=== PATIENT | male | born 1950 | race Caucasian/White ===

== ENCOUNTER 2020-12-30 06:53 | Outpatient (REF) | payer MEDICARE, SELFPAY ==
[2020-12-30 11:10] LABS: MANUAL DIFF FLAG NO
[2020-12-30 11:27] LABS: Basophils Percent Auto 0.8 % (0-2); Eosinophils Absolute Auto 0.3 X10*3/uL (0.0-0.4); Eosinophils Percent Auto 5.2 % (0-4); Hematocrit 49.5 % (42-52); Hemoglobin 16.4 g/dl (14.0-18.0); Imm Gran Abs Auto 0.02 X10*3/uL (0.00-0.03); Imm Gran Pct Auto 0.4 % (0.0-0.4); Lymphocytes Absolute Auto 1.5 X10*3/uL (1.2-4.9); Lymphocytes Percent Auto 32.3 % (20-40); Mean Corpuscular HGB Conc 33.1 g/dl (31.0-36.0); Mean Corpuscular Hemoglobin 31.5 pg (27.0-33.0); Mean Corpuscular Volume 95.2 fL (80-98); Monocytes Absolute Auto 0.6 X10*3/uL (0.1-1.2); Monocytes Percent Auto 11.5 % (2-11); Neutrophils Absolute Auto 2.4 X10*3/uL (2.0-8.3); Neutrophils Percent Auto 49.8 % (45-73); Platelet Count 199 X10*3/uL (160-400); Red Cell Distribution Width 12.4 % (11.0-16.0); White Blood Count 4.8 X10*3/uL (4.8-10.8)
[2020-12-30 11:29] LABS: Glucose Urine UA NEG (NEG); Leukocyte Esterase Urine NEG (NEG); Nitrite Urine NEG (NEG); Urine Blood NEG (NEG); Urine Ketones NEG (NEG); Urine Protein NEG (NEG-TRACE)
[2020-12-30 11:40] LABS: Appearance Urine CLEAR; Color Urine YELLOW
[2020-12-30 12:08] LABS: Alanine Aminotransferase 20 U/L (0-40); Alkaline Phosphatase 63 U/L (39-117); Anion Gap 15 (12-20); Aspartate Amino Transferase 20 U/L (5-37); Bilirubin Total 1.2 mg/dL (0.0-1.0); Blood Urea Nitrogen 11 mg/dL (9-16); Calcium 9.3 mg/dL (8.4-10.2); Carbon Dioxide 26 mmol/L (22-29); Chloride 102 mmol/L (96-108); Cholesterol 207 mg/dL; Estimated Glomerular Filt Rate > 60; Glucose Fasting 102 mg/dL (60-99); HDL Cholesterol 70 mg/dL; LDL Cholesterol Calculated 119 mg/dl; Potassium 4.6 mmol/L (3.3-5.1); Sodium 138 mmol/L (135-145); Total Protein 6.7 g/dL (6.5-8.0); Triglycerides 90 mg/dL
[2020-12-30 12:45] LABS: Prostate Specific Antigen Scr 4.55 ng/mL (<0.05-4.0)
== END 2020-12-30 06:54 | disposition home or self-care (01) ==
LOC: HO.HMGCLDS 06:53
PROVIDERS: PCP Internal Medicine; Visit Provider Internal Medicine
DX: Z12.5 Encounter for screening for malignant neoplasm of prostate (principal); E78.00 Pure hypercholesterolemia, unspecified; R97.20 Elevated prostate specific antigen [PSA]; K21.9 Gastro-esophageal reflux disease without esophagitis
CPT/HCPCS: 36415; 80053; 80061; 81003; 84153; 85025

== ENCOUNTER 2021-04-27 10:38 | Outpatient (REF) | payer MEDICARE, SELFPAY ==
[2021-04-27 14:43] LABS: Anion Gap 14 (12-20); Blood Urea Nitrogen 13 mg/dL (9-16); Calcium 8.9 mg/dL (8.4-10.2); Carbon Dioxide 26 mmol/L (22-29); Chloride 106 mmol/L (96-108); Estimated Glomerular Filt Rate > 60; Glucose Random 87 mg/dL (60-115); Potassium 4.5 mmol/L (3.3-5.1); Sodium 141 mmol/L (135-145)
[2021-04-27 16:19] LABS: PSA,Total (Free>4and<10) 4.42 ng/mL (0.00-4.00)
[2021-04-28 12:02] LABS: Free Prostate Spec Ag 1.3 ng/mL; Percent Free Prostate Spec Ag 28 % (calc) (>25); Prostate Specific Ag Total 4.6 ng/mL (< OR = 4.0)
== END 2021-04-27 10:39 | disposition home or self-care (01) ==
LOC: HO.10HDL 10:38
PROVIDERS: Visit Provider Internal Medicine
DX: Z12.5 Encounter for screening for malignant neoplasm of prostate (principal); R97.20 Elevated prostate specific antigen [PSA]; I10 Essential (primary) hypertension
CPT/HCPCS: 36415; 80048; 84153; 84154; 86140

== ENCOUNTER 2021-06-21 12:19 | Outpatient (REF) | payer MEDICARE, SELFPAY ==
[2021-06-21 13:05] LABS: Influenza A PCR NEGATIVE (Negative); Influenza B PCR NEGATIVE (Negative); Resp Syncy Virus RNA Qual PCR NEGATIVE (Negative); SARS COV2 PCR INHOUSE NEGATIVE (Negative)
== END 2021-06-21 12:20 | disposition home or self-care (01) ==
LOC: HO.LNP 12:19
PROVIDERS: Visit Provider Internal Medicine
DX: R05.9 Cough, unspecified (principal); R09.89 Other specified symptoms and signs involving the circulatory and respiratory systems; Z20.822 Contact with and (suspected) exposure to COVID-19
CPT/HCPCS: 0241U

== ENCOUNTER 2022-02-09 08:36 | Outpatient (REF) | payer MEDICARE, SELFPAY ==
--- NOTE | ~2022-02-09 | XR_ITS ---
EXAMINATION: XR HAND, LEFT CLINICAL INFORMATION: Pain left hand. COMPARISON: Left fingers 03/09/2017. TECHNIQUE: PA, lateral, and oblique views of the left hand. FINDINGS: There is a soft tissue mass along the volar aspect of PIP joint second digit. If this is acute it could be a hematoma. Differential diagnoses includes a synovial cyst. There are no bony erosive changes seen. XR/XR hand LT min 3V IMPRESSION: Soft tissue mass along the volar aspect of PIP joint second digit. Question hematoma or synovial cyst. Apparently there is a foreign body or linear density in the same region on the previous exam 04/06/2017. This may represent a foreign body granuloma as well. Further evaluation with MRI can be performed.
== END 2022-02-09 08:37 | disposition home or self-care (01) ==
LOC: HO.HOSX 08:36
PROVIDERS: Visit Provider Physician Assistant
DX: M79.642 Pain in left hand (principal); L72.0 Epidermal cyst
CPT/HCPCS: 73130; 99202

== ENCOUNTER 2022-02-24 12:44 | Day surgery (SDC) | payer MEDICARE, SELFPAY ==
[2022-02-24 13:35] VITALS: BP 182/82; PULSE 68; RESP 18; TEMP 36.9; O2SAT 98; BMI 28.1
--- NOTE | 2022-02-24 15:08 | P.OP_ITS ---
Operative Note Operative Note Date of Service: 02/24/22 Narrative: Operative Note Preop diagnosis: 1. left index finger volar soft tissue mass Postop diagnosis: same Procedure: 1. left index finger soft tissue mass excisional biopsy Surgeon: Samaria Singh MD Anesthesia: digital block using 1% lidocaine with epinephrine Findings: Approximately 1.5 cm diameter white spherical shaped mass filled with white gritty material. Most consistent with an epidermal inclusion cyst. Sent for histopathology EBL: Less than 5 mL Tourniquet time: None Specimens: left index finger mass for histopathology Complications: None Disposition: Brought to recovery room in stable condition Plan: Follow-up for 7-10 days for wound check and suture removal and to check pathology Indications: The patient is 72 years old, with a left index finger volar soft tissue mass . The risks and benefits of operative treatment including but not limited to risk of damage to blood vessels, nerves, tendons, infection, persistent pain, persistent symptoms, recurrence or possible need for additional surgery were discussed with the patient and the patient wishes to proceed with surgery. Procedure: Once consent was obtained a digital block was performed in the p reop area using a combination of 1% lidocaine with epinephrine. The patient was then brought back to the operating suite and placed on the operative table in supine position. A tourniquet was applied to the proximal aspect of the left upper extremity and the limb was prepped and draped in a standard surgical fashion. Once assured that we had a good block, I made a Saida incision over the volar aspect of the patient's left index finger. He had a 1.5 cm oval-shaped soft tissue mass over the volar aspect of the middle phalanx. The incision was made through the skin to the subcutaneous tissues using a 15. Blade. I then carefully dissected down to the level of the soft tissue mass. I carefully mobilized the surrounding soft tissues from about the soft tissue mass caking care to protect the neurovascular bundles. the mass was approximately 1.5 cm in diameter, white and an oval / spherical shape. It was fairly easily removed from the soft tissue covering/rind surrounding it. The mass was then removed and placed on the back table to be sent for histopathology. No further masses were appreciated. I excise the more superficial portion of the rind or soft tissue covering, and left the deeper tissue as it was well adherent to the surrounding tissues. Once satisfied with our excisional biopsy, the wound was copiously irrigated with normal saline and hemostasis was obtained with a brief period of local pressure. The skin edges were reapproximated with some 5.0 nylon suture material and a sterile dressing was applied. The patient appears to have tolerated the procedure well and with no complications. All digits were well vascularized at the conclusion of the case.
--- NOTE | 2022-02-24 15:08 | MHC.SHP ---
Pre-Procedural Eval Section A Date of Service: 02/24/22 The patient is an INPATIENT: No Changes since office visit: No Cold of Flu in the past 2 weeks, No New Medical Problems, No Changes in Medication and No Patient answered all questions The History & Physical has been completed within 30 days and I have reviewed it.: Yes Section B Chief Complaint: Localized swelling, mass and lump, left upper limb Allergies: Allergies Allergy/AdvReac Type Severity Reaction Status Date / Time No Known Allergies Allergy Unverified 02/09/22 14:10 Plan I have reviewed the history and physical and performed a pertinent physical examination on my patient. No changes have occurred unless specified.
[2022-02-24 16:40] VITALS: BP 172/79; PULSE 77; RESP 18; TEMP 36.8; O2SAT 97
== END 2022-02-24 16:56 | disposition home or self-care (01) ==
PROVIDERS: PCP Internal Medicine; Visit Provider Orthopaedic Surgery
PROC: (CPT 11422; principal; 2022-02-24 14:40)
DX: L72.0 Epidermal cyst (principal); I10 Essential (primary) hypertension; Z79.899 Other long term (current) drug therapy; Z87.891 Personal history of nicotine dependence
CPT/HCPCS: 11422; 88304; J0171

== ENCOUNTER → 2022-03-09 13:05 | Outpatient (BNVA) | payer MEDICARE, SELFPAY | PROVIDERS: PCP Internal Medicine; Visit Provider Orthopaedic Surgery | DX: Z09 Encounter for follow-up examination after completed treatment for conditions other than malignant neoplasm (principal) | CPT/HCPCS: 99212 ==

== ENCOUNTER 2022-04-05 07:10 | Outpatient (REF) | payer MEDICARE, SELFPAY ==
[2022-04-05 11:16] LABS: MANUAL DIFF FLAG NO
[2022-04-05 11:41] LABS: Basophils Absolute Auto 0.1 X10*3/uL (0.0-0.2); Basophils Percent Auto 1.5 % (0-2); Eosinophils Absolute Auto 0.3 X10*3/uL (0.0-0.4); Eosinophils Percent Auto 5.4 % (0-4); Hematocrit 47.1 % (42.0-52.0); Hemoglobin 15.9 g/dl (14.0-18.0); Imm Gran Abs Auto 0.01 X10*3/uL (0.00-0.03); Imm Gran Pct Auto 0.2 % (0.0-0.4); Lymphocytes Absolute Auto 1.5 X10*3/uL (1.2-4.9); Lymphocytes Percent Auto 30.5 % (20-40); Mean Corpuscular HGB Conc 33.8 g/dl (31.0-36.0); Mean Corpuscular Hemoglobin 32.2 pg (27.0-33.0); Mean Corpuscular Volume 95.3 fL (80.0-98.0); Mean Platelet Volume 9.9 fL (9.4-12.4); Monocytes Absolute Auto 0.6 X10*3/uL (0.1-1.2); Monocytes Percent Auto 11.5 % (2-11); Neutrophils Absolute Auto 2.4 x10*3/uL (2.0-8.3); Neutrophils Percent Auto 50.9 % (45-73); Platelet Count 188 X10*3/uL (160-400); Red Blood Count 4.94 X10*6/uL (4.60-5.80); Red Cell Distribution Width 12.4 % (11.0-16.0); White Blood Count 4.8 X10*3/uL (4.8-10.8)
[2022-04-05 12:09] LABS: Alanine Aminotransferase 23 U/L (0-40); Albumin Level 3.9 g/dL (3.5-5.0); Alkaline Phosphatase 56 U/L (39-117); Anion Gap 14 (12-20); Aspartate Amino Transferase 22 U/L (5-37); Bilirubin Total 1.2 mg/dL (0.0-1.0); Blood Urea Nitrogen 14 mg/dL (9-16); Calcium 8.7 mg/dL (8.4-10.2); Carbon Dioxide 24 mmol/L (22-29); Chloride 105 mmol/L (96-108); Cholesterol 190 mg/dL; Estimated Glomerular Filt Rate > 60; Glucose Fasting 110 mg/dL (60-99); HDL Cholesterol 63 mg/dL; LDL Cholesterol Calculated 113 mg/dl; Potassium 4.3 mmol/L (3.3-5.1); Sodium 139 mmol/L (135-145); Total Protein 6.5 g/dL (6.5-8.0); Triglycerides 71 mg/dL
[2022-04-05 12:19] LABS: Prostate Specific Antigen 4.63 ng/mL (<0.05-4.0)
== END 2022-04-05 07:11 | disposition home or self-care (01) ==
LOC: HO.HMGCLDS 07:10
PROVIDERS: PCP Internal Medicine; Visit Provider Internal Medicine
DX: Z12.5 Encounter for screening for malignant neoplasm of prostate (principal); I10 Essential (primary) hypertension; N40.0 Benign prostatic hyperplasia without lower urinary tract symptoms; E78.00 Pure hypercholesterolemia, unspecified
CPT/HCPCS: 36415; 80053; 80061; 84153; 85025

== ENCOUNTER 2022-09-16 09:36 | Outpatient (REF) | payer MEDICARE, SELFPAY ==
--- NOTE | ~2022-09-16 | XR_ITS ---
EXAMINATION: XR ANKLE, LEFT CLINICAL INFORMATION: Left ankle pain COMPARISON: Left ankle radiograph from 05/02/2017 TECHNIQUE: AP, lateral, and mortise views of the left ankle. FINDINGS: No acute visible fracture or dislocation. Ankle mortise is symmetric. Moderate to severe degenerative arthropathy. Large osteophyte along the posterior talocalcaneal joint space. Plantar calcaneal heel spur. Spurring the dorsal hindfoot and midfoot. Joint spaces and alignment are otherwise maintained. Soft tissues are unremarkable. Atherosclerotic calcifications are noted. XR/XR ankle LT min 3V IMPRESSION: 1. No acute visible fracture or dislocation. 2. Moderate to severe degenerative arthropathy with a large osteophyte along the posterior talocalcaneal joint space.
== END 2022-09-16 09:37 | disposition home or self-care (01) ==
LOC: HO.XRAY 09:36
PROVIDERS: PCP Internal Medicine; Visit Provider Internal Medicine
DX: M25.572 Pain in left ankle and joints of left foot (principal)
CPT/HCPCS: 73610

== ENCOUNTER 2022-12-29 14:44 | Inpatient (IN) | payer MEDICARE, SELFPAY ==
--- NOTE | ~2022-12-29 | CT_ITS ---
EXAMINATION: CT HEAD WITHOUT CONTRAST CLINICAL INFORMATION: Fall, head strike, on anticoagulants. COMPARISON: None TECHNIQUE: Contiguous axial imaging was performed from the skull base to vertex without intravenous administration of contrast. This CT examination was performed using dose optimization techniques as appropriate, variously including the following: *Automated exposure control *Adjustment of mA and/or kV according to patient size (this includes techniques or standardized protocols for targeted exams where dose is matched to indication/reason for exam; i.e. extremities or head) *Use of iterative reconstruction technique DLP: 803 mGy-cm FINDINGS: There is no evidence of acute intracranial hemorrhage or edematous territorial infarction. A few foci of hypoattenuation in the periventricular and deep white matter are consistent with mild microangiopathy. Mart-white matter differentiation is preserved. Proportional prominence of the ventricles and sulcal spaces. No evidence for obstructive hydrocephalus. No abnormal mass effect or midline shift. No extra-axial fluid collections. No acute soft tissue or osseous abnormalities. Small mucous retention cysts in the maxillary sinuses. No air-fluid levels. The mastoids and middle ear cavities are clear. CT/CT head/brain wo IV con IMPRESSION: No evidence of acute intracranial hemorrhage or edematous territorial infarction.
--- NOTE | ~2022-12-29 | CT_ITS ---
EXAMINATION: CT ANGIOGRAM NECK AND HEAD CLINICAL INFORMATION: Question CVA versus TIA COMPARISON: Noncontrast head CT from the same day TECHNIQUE: Test bolus sequences followed by intravenous administration 70 mL of Omnipaque 350. Helical imaging was performed in the axial plane from the thoracic inlet to the skull vertex. Delayed postcontrast imaging of the head was also performed. The data was processed at the instrument technologist's workstation for generation of MIP sequences. Angled MIPs and volume rendered reformatted images were also generated at an offline 3D workstation. Stenoses are assessed in accordance with NASCET criteria unless otherwise indicated. DOSE LOWERING TECHNIQUES: This CT examination was performed using dose optimization techniques as appropriate, variously including the following: - Automated exposure control - Adjustment of mA and/or kV according to patient size (this includes techniques or standardized protocols for targeted exams were dose is matched to indication/reason for exam; i.e. extremities or head) - Use of iterative reconstruction technique DLP: 1638 mGy-cm FINDINGS: Neck CTA: There is a classic 3 vessel branching pattern of the aortic arch. Normal appearance of the visualized aortic arch and proximal branches. No evidence of stenosis at the branch origins. Both vertebral arteries are patent throughout their extracranial cervical course, and the right vertebral artery is dominant. There is calcification of the bilateral common carotid artery bifurcations with less than 50% luminal narrowing bilaterally. Normal appearance of the remainder of the common and internal carotid arteries without focal stenosis. Brain CTA: Normal appearance of the intradural vertebral arteries, and the right vertebral artery is dominant. Normal appearance of the basilar and superior cerebellar arteries. Normally opacified posterior cerebral arteries bilaterally. Normal appearance of the intradural internal carotid arteries without focal stenosis. There are calcifications along the bilateral cavernous internal carotid arteries. Normal appearance of the anterior cerebral and middle cerebral arteries without focal occlusion or stenosis. Normal anterior communicating artery. Normal arborization of the middle cerebral arteries. CT Head: Limited assessment for intracranial hemorrhage in the presence of intravenous contrast. No intracranial mass, extra-axial collection, or midline shift. The glynn-white matter differentiation is preserved. Mild volume loss is noted. No pathologic intra-axial enhancement or regional oligemia. No hydrocephalus. Small mucous retention cysts in the maxillary sinus. Mastoid air cells are well-aerated. CT Neck: The thyroid gland and remaining cervical soft tissues are normal in appearance. There is disc space narrowing and endplate osteophyte formation throughout much of the cervical spine. Upper Chest: No abnormalities in the visualized lung apices or upper mediastinum. CT/CT angio head neck IMPRESSION: 1. No large vessel occlusion or significant stenosis in the intracranial circulation. 2. Calcifications of the bilateral common carotid artery bifurcations with less than 50% luminal narrowing bilaterally.
--- NOTE | ~2022-12-29 | MR_ITS ---
EXAMINATION: MR BRAIN WITHOUT CONTRAST CLINICAL INFORMATION: Right-sided weakness. COMPARISON: CT dated 12/29/2022. TECHNIQUE: Multiplanar, multisequence imaging of the brain was performed without contrast. FINDINGS: There is a small acute infarct in the left thalamus measuring approximately 7 mm in size. Mild generalized parenchymal volume loss evident with mild ex vacuo dilatation of the ventricles. No mass effect or midline shift is seen. Very mild signal changes noted in the periventricular white matter and brainstem. No extra-axial fluid collections are seen. The cerebellum is normal. The gradient refocused acquisition is normal. The craniovertebral junction, marrow signal, and midline structures are normal. The major intracranial flow voids at the level of the [place] of [place] are preserved. The dural venous sinus flow voids are maintained. The mastoid air cells are well aerated. There is a small retention cyst in the left maxillary antrum. MR/MR head/brain wo con IMPRESSION: Small acute left thalamic infarct.
[2022-12-29 14:53] VITALS: BP 178/87; PULSE 84; RESP 20; TEMP 36.8; O2SAT 98; BMI 28.1
--- NOTE | 2022-12-29 14:53 | ED.GENADULT ---
HPI - General Adult General Chief complaint: Neuro Symptoms/Deficit Stated complaint: quest stroke r arm leg numbness sent by dr Blackmon Time Seen by Provider: 12/29/22 19:21 Source: patient, family (), RN notes reviewed and old records reviewed Mode of arrival: ambulatory Limitations: no limitations History of Present Illness HPI narrative: 72-year-old male past medical history significant for hypertension, hyperlipidemia, GERD presents for evaluation of right-sided weakness. Patient reports that last night around 5:30 p.m. 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 ? Currently he reports some mild soreness in his right hip but denies any weakness in reports that his symptoms have resolved He denies having any difficulty speaking throughout this event. He also admits that last night ?I just did not feel well. The patient is reports that he slept much longer than usual last night into this morning The patient followed up with his PCP this morning and was directed to come to the hospital for further evaluation Patient denies any history of stroke or TIA. He is not anticoagulated Related Data Home Medications Medication Instructions Recorded Confirmed amlodipine 5 mg tablet 5 mg PO DAILY 02/09/22 omeprazole 20 mg capsule,delayed 20 mg PO DAILY 02/09/22 release pravastatin 20 mg tablet 20 mg PO DAILY 02/09/22 Previous Rx's Medication Instructions Recorded hydrocodone 5 mg-acetaminophen 325 1 tab PO Q4-6H PRN pain #5 tabs 02/24/22 mg tablet Allergies Allergy/AdvReac Type Severity Reaction Status Date / Time No Known Allergies Allergy Unverified 02/09/22 14:10 Review of Systems Constitutional: Constitutional: Reports as per HPI, Denies chills, Denies fatigue, Denies fever(s), Denies headache(s) and Reports weakness ENT: Denies headache(s) Cardiovascular: Cardiovascular: Denies chest pain and Denies dyspnea Respiratory: Respiratory: Denies cough and Denies dyspnea Gastrointestinal: Gastrointestinal: Denies abdominal pain, Denies constipation and Denies vomiting Genitourinary: Genitourinary: Denies difficulty urinating and Denies dysuria Musculoskeletal: Musculoskeletal: Reports numbness Neurologic: Denies headache(s), Reports numbness and Reports weakness Endocrine: Endocrine: Denies fatigue PMFSH Past Medical History Medical History (Updated 12/29/22 @ 19:51 by Franko Dutton) High blood pressure Social History Social History (Updated 02/09/22 @ 14:12 by CAROLINE Carr) Patient Tobacco Use Status: Former Tobacco user Advance Directives: No Advance Directives Information Provided: Yes Current occupational status: 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 Physical Exam ED Vital Signs: Vital Signs - 24 hr 12/29/22 14:53 Temperature 98.3 F Pulse Rate 84 Respiratory Rate 20 Blood Pressure 178/87 H Pulse Oximetry 98 Oxygen Delivery Method Room Air BMI result Body Mass Index 28.1 Const General: healthy appearing, comfortable, no acute distress, alert and awake Nutritional Appearance: well nourished Orientation/consciousness: patient oriented x3 HENMT Head: Yes normocephalic and Yes atraumatic Eyes Eyelids: Yes eyelids normal Conjunctivae: conjunctivae normal Sclerae: sclerae normal Corneas: corneas normal Pupils: Equal, round and reactive pupils present EOM: EOMs intact bilaterally Neck Neck: Yes full ROM Resp Effort & Inspection: normal respiratory effort, able to speak in complete sentences and not labored Skin General skin exam: no rashes or lesions noted and elasticity normal Neuro General: patient oriented x3 Cranial nerves: Yes CN's II-XII intact bilaterally, Yes Equal, round and reactive pupils present and Yes Bilaterally intact EOM present Cognition (Neuro): normal cognition Motor exam (neuro): 5/5 motor strength present throughout Extrem Other: Moving all extremities well without any obvious deformities NIH Stroke Scale Internal: Initial- Upon Arrival Time: 14:56 Level of Consciousness: Alert Level of Consciousness Questions: Answers both questions correctly Level of Consciousness Commands: Performs both tasks correctly Best Gaze: Normal Visual: No visual loss Facial Palsy: Normal Motor Arm (Right): Drift (mild) Motor Arm (Left): No drift Motor Leg (Right): No drift Motor Leg (Left): No drift Limb Ataxia: Absent Sensory: Normal Best Language: No aphasia Dysarthia: Normal Extinction and Inattention: No abnormality Score: 1 Course Course Course Narrative: This is a rapid medical exam: Additional HPI, ROS, PE not included below will be deferred to primary provider. Patient is a 72-year-old male with history of HTN presenting with complaint of right arm and leg weakness last night around 6pm. States he was attempting to picking supervisor a cup with his right hand and he dropped it. Reports his right arm feels less weak this morning but that his right leg feels like I'm shuffling this morning. Saw Dr. Marquez this morning who sent him to the ED. NIHSS of 1. Plan: labs, CT head Medical Decision Making Medical Decision Making [facility] Narrative: 72-year-old male with history of hypertension, hyperlipidemia not currently on any and elevated medications presents for evaluation of right-sided weakness that lasted for about 5:30 p.m. to 7:00 p.m. last night. The patient is currently back to his baseline, has no numbness, weakness. There was never any dysarthria or facial asymmetry per him and his . Currently the patient has an NIH stroke score of 0. He had labs that were resulted and unremarkable for acute pathology. This CT scan the brain showed chronic changes but no evidence of acute CVA. Given the patient's right-sided weakness affecting the upper and lower extremity I am concerned the patient had a TIA and requires MRI. Unfortunately MRI is no longer here today. The patient's symptoms started over 24 hours ago, so there is no intervention available. Of discussed with the hospitalist for admission of further TIA workup patient was given a dose of aspirin Differential Diagnosis Differential Diagnoses: The differential diagnosis associated with the presentation includes TA CVA Large vessel occlusion Intracranial hemorrhage Brain mass Lab Data [facility] Lab Attestation statement: I reviewed the patient's lab results. No leukocytosis or significant anemia. No significant electrolyte abnormalities 12/29/22 15:17 12/29/22 15:17 Labs: Lab Results 12/29/22 12/29/22 12/29/22 Range/Units 15:17 15:17 15:19 WBC 6.8 (4.8-10.8) X10*3/uL RBC 5.46 (4.60-5.80) X10*6/uL Hgb 17.3 (14.0-18.0) g/dl Hct 51.2 (42.0-52.0) % MCV 93.8 (80.0-98.0) fL MCH 31.7 (27.0-33.0) pg MCHC 33.8 (31.0-36.0) g/dl RDW 12.8 (11.0-16.0) % Plt Count 173 (160-400) X10*3/uL MPV 9.2 L (9.4-12.4) fL Immature Gran % (Auto) 0.3 (0.0-0.4) % Neut % (Auto) 66.6 (45-73) % Lymph % (Auto) 22.4 (20-40) % [place] % (Auto) 7.9 (2-11) % Eos % (Auto) 2.2 (0-4) % Baso % (Auto) 0.6 (0-2) % Lymph # (Auto) 1.5 (1.2-4.9) X10*3/uL [place] # (Auto) 0.5 (0.1-1.2) X10*3/uL Eos # (Auto) 0.2 (0.0-0.4) X10*3/uL Baso # (Auto) 0.0 (0.0-0.2) X10*3/uL Abs Immat Gran (auto) 0.02 (0.00-0.03) X10*3/uL Absolute Neuts (auto) 4.5 (2.0-8.3) x10*3/uL Absolute Nucleated RBC 0.000 (0.0-0.012) X10*3/uL Nucleated RBC % (auto) 0.0 (0.0-0.2) /100WBC PT (10.0-13.1) SEC INR (0.9-1.1) Sodium 138 (135-145) mmol/L Potassium 3.9 (3.3-5.1) mmol/L Chloride 106 (96-108) mmol/L Carbon Dioxide 20 L (22-29) mmol/L Anion Gap 16 (12-20) BUN 12 (9-16) mg/dL Creatinine 0.87 (0.5-1.4) mg/dL Estim Creat Clear Calc 83.3 Estimated GFR > 60 Random Glucose 98 (60-115) mg/dL Calcium 9.8 D (8.4-10.2) mg/dL Total Bilirubin 1.0 (0.0-1.0) mg/dL AST 19 (5-37) U/L ALT 22 (0-40) U/L Alkaline Phosphatase 57 (39-117) U/L Troponin I High Sens < 2.7 (<3.5-35.0) ng/L Total Protein 7.4 (6.5-8.0) g/dL Albumin 4.1 (3.5-5.0) g/dL 12/29/22 Range/Units 15:19 WBC (4.8-10.8) X10*3/uL RBC (4.60-5.80) X10*6/uL Hgb (14.0-18.0) g/dl Hct (42.0-52.0) % MCV (80.0-98.0) fL MCH (27.0-33.0) pg MCHC (31.0-36.0) g/dl RDW (11.0-16.0) % Plt Count (160-400) X10*3/uL MPV (9.4-12.4) fL Immature Gran % (Auto) (0.0-0.4) % Neut % (Auto) (45-73) % Lymph % (Auto) (20-40) % [place] % (Auto) (2-11) % Eos % (Auto) (0-4) % Baso % (Auto) (0-2) % Lymph # (Auto) (1.2-4.9) X10*3/uL [place] # (Auto) (0.1-1.2) X10*3/uL Eos # (Auto) (0.0-0.4) X10*3/uL Baso # (Auto) (0.0-0.2) X10*3/uL Abs Immat Gran (auto) (0.00-0.03) X10*3/uL Absolute Neuts (auto) (2.0-8.3) x10*3/uL Absolute Nucleated RBC (0.0-0.012) X10*3/uL Nucleated RBC % (auto) (0.0-0.2) /100WBC PT 10.8 (10.0-13.1) SEC INR 0.9 (0.9-1.1) Sodium (135-145) mmol/L Potassium (3.3-5.1) mmol/L Chloride (96-108) mmol/L Carbon Dioxide (22-29) mmol/L Anion Gap (12-20) BUN (9-16) mg/dL Creatinine (0.5-1.4) mg/dL Estim Creat Clear Calc Estimated GFR Random Glucose (60-115) mg/dL Calcium (8.4-10.2) mg/dL Total Bilirubin (0.0-1.0) mg/dL AST (5-37) U/L ALT (0-40) U/L Alkaline Phosphatase (39-117) U/L Troponin I High Sens (<3.5-35.0) ng/L Total Protein (6.5-8.0) g/dL Albumin (3.5-5.0) g/dL Discharge Plan Discharge Clinical Impression: Acute right-sided weakness Patient Disposition: Admitted As Inpatient
[2022-12-29 15:36] LABS: MANUAL DIFF FLAG NO
[2022-12-29 15:39] LABS: Basophils Percent Auto 0.6 % (0-2); Eosinophils Absolute Auto 0.2 X10*3/uL (0.0-0.4); Eosinophils Percent Auto 2.2 % (0-4); Hematocrit 51.2 % (42.0-52.0); Hemoglobin 17.3 g/dl (14.0-18.0); Imm Gran Abs Auto 0.02 X10*3/uL (0.00-0.03); Imm Gran Pct Auto 0.3 % (0.0-0.4); Lymphocytes Absolute Auto 1.5 X10*3/uL (1.2-4.9); Lymphocytes Percent Auto 22.4 % (20-40); Mean Corpuscular HGB Conc 33.8 g/dl (31.0-36.0); Mean Corpuscular Hemoglobin 31.7 pg (27.0-33.0); Mean Corpuscular Volume 93.8 fL (80.0-98.0); Mean Platelet Volume 9.2 fL (9.4-12.4); Monocytes Absolute Auto 0.5 X10*3/uL (0.1-1.2); Monocytes Percent Auto 7.9 % (2-11); Neutrophils Absolute Auto 4.5 x10*3/uL (2.0-8.3); Neutrophils Percent Auto 66.6 % (45-73); Platelet Count 173 X10*3/uL (160-400); Red Blood Count 5.46 X10*6/uL (4.60-5.80); Red Cell Distribution Width 12.8 % (11.0-16.0); White Blood Count 6.8 X10*3/uL (4.8-10.8)
[2022-12-29 15:44] LABS: INTERNATIONAL NORM RATIO 0.9 (0.9-1.1); Prothrombin Time 10.8 SEC (10.0-13.1)
[2022-12-29 16:12] LABS: Troponin-I High Sensitivity < 2.7 ng/L (<3.5-35.0)
[2022-12-29 16:26] LABS: Alanine Aminotransferase 22 U/L (0-40); Albumin Level 4.1 g/dL (3.5-5.0); Alkaline Phosphatase 57 U/L (39-117); Anion Gap 16 (12-20); Aspartate Amino Transferase 19 U/L (5-37); Blood Urea Nitrogen 12 mg/dL (9-16); Calcium 9.8 mg/dL (8.4-10.2); Carbon Dioxide 20 mmol/L (22-29); Chloride 106 mmol/L (96-108); Creatinine Clr Calc Pharmacy 83.3; Estimated Glomerular Filt Rate > 60; Glucose Random 98 mg/dL (60-115); Potassium 3.9 mmol/L (3.3-5.1); Sodium 138 mmol/L (135-145); Total Protein 7.4 g/dL (6.5-8.0)
[2022-12-29] MEDS: Aspirin 81 MG TAB.CHEW 324 MG PO (20:00)
--- NOTE | 2022-12-29 20:05 | PC.NURSE ---
Pt presents to ER after an episode of one-sided weakness last night. Pt stated symptoms resolved with the exception of a soreness in his shoulder. Pt is A&Ox4, GCS 15. Denies chest pain, shortness of breath, nyumbness and tingling in any extremity. Pt will be admitted to get an MRI tomorrow.
--- NOTE | 2022-12-29 20:07 | PM.IMHP ---
History of Present Illness Date of Service: 12/29/22 Attending physician on admission: Samm Montemayor Chief Complaint: Right arm and leg numbness Pt is a 72-year-old male with a PMH significant for?HTN and HLD who presents to the ED for evaluation of right-sided weakness. Pt states he was eating dinner last night when he attempted to grab a glass and found he could not hold it. He attempted this twice and twice the glass fell. Pt then got up and tried to ambulate and noticed that his right leg was dragging behind him. Neither pt nor his noted any facial droop, slurred speech, or difficulty with word finding. Denies headache, vision changes. No numbness or tingling. He lay on the couch and took a 2-3 hour nap. When he awoke he continued to have residual upper extremity weakness but was able to ambulate without difficulty. He then went to bed and awoke the next morning with his symptoms resolved. Pt visited his PCP today who sent him to the ED for further evaluation. Patient currently nearly back to baseline with only some lingering mild right arm pain. Denies any residual right-sided weakness. No chest pain/pressure palpitations. Denies shortness of breath. No fever, chills, nausea, vomiting, abdominal pain. Of note patient stop taking his pravastatin 3 months ago due to myalgias and joint pain. Patient states he used to be in so much pain that it was difficult to just bend over. Since stopping his statin he has greatly improved his mobility. In the ED pt was afebrile but hypertensive up to 178/87. Labs were grossly unremarkable. Electrolytes WNL. Hepatic function WNL. Renal function WNL. Troponin negative. CT?of head and brain showed no evidence of acute intracranial hemorrhage or edematous and territorial infarction. Pt was treated with aspirin 324 mg p.o. Pt will be admitted to the hospital for treatment and further evaluation of possible CVA versus TIA. Review of Systems Review of Systems: Right-sided upper and lower extremity weakness, now resolved Lingering mild right arm pain Patient denies numbness or tingling No headache, vision changes Denies facial droop, dysarthria No chest pain/pressure, palpitations Denies fever, chills, nausea, vomiting, diarrhea, abdominal pain No shortness of breath Yes all other systems are reviewed and are negative PMFSH Medical History High blood pressure Social History Alcohol intake: current Alcohol intake frequency: 0-2 drinks per day Alcohol type: beer Patient Tobacco Use Status: Former Tobacco user Smoked in Last 30 Days: No Use of substances other than those prescribed or required for medical reasons: No Advance Directives: No Advance Directives Information Provided: Yes 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 occupational status: 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 Mental Status: Oriented to person, place and time. Eyes: Pupils are equal, round, and reactive to light. Ear, Nose, and Throat: Oropharynx clear, mucous membranes moist. Ears and nose without deformities. Trachea midline. Respiratory: Clear to auscultation bilaterally. No wheezing, rales, or rhonchi. Cardiovascular: S1, S2 regular. No murmurs, rubs, or gallops. Gastrointestinal: Abdomen soft, non-tender, non-distended. Normal bowel sounds. Neurologic: Cranial nerves II-XII are grossly intact bilaterally. No focal neurological deficits. Moves all extremities spontaneously. Strength 5/5 of upper and lower extremities bilaterally. Sensation to light touch intact of face, upper and lower extremities bilaterally. Skin: No rashes or lesions noted. Musculoskeletal: No cyanosis or clubbing. Extremities: No edema. Psychiatric: Normal mood and affect. Results Labs 12/29/22 15:17 12/29/22 15:17 Labs: Laboratory Results - last 24 hr 0712/29/22 12/29/22 15:17 15:17 15:19 MCV 93.8 MCH 31.7 MCHC 33.8 RDW 12.8 Plt Count 173 MPV 9.2 L Immature Gran % (Auto) 0.3 Neut % (Auto) 66.6 Lymph % (Auto) 22.4 [place] % (Auto) 7.9 Eos % (Auto) 2.2 Baso % (Auto) 0.6 Lymph # (Auto) 1.5 [place] # (Auto) 0.5 Eos # (Auto) 0.2 Baso # (Auto) 0.0 Abs Immat Gran (auto) 0.02 Absolute Neuts (auto) 4.5 Absolute Nucleated RBC 0.000 Nucleated RBC % (auto) 0.0 PT INR Anion Gap 16 Estim Creat Clear Calc 83.3 Estimated GFR > 60 Random Glucose 98 Calcium 9.8 D Total Bilirubin 1.0 AST 19 ALT 22 Alkaline Phosphatase 57 Troponin I High Sens < 2.7 Total Protein 7.4 Albumin 4.1 12/29/22 15:19 MCV MCH MCHC RDW Plt Count MPV Immature Gran % (Auto) Neut % (Auto) Lymph % (Auto) [place] % (Auto) Eos % (Auto) Baso % (Auto) Lymph # (Auto) [place] # (Auto) Eos # (Auto) Baso # (Auto) Abs Immat Gran (auto) Absolute Neuts (auto) Absolute Nucleated RBC Nucleated RBC % (auto) PT 10.8 INR 0.9 Anion Gap Estim Creat Clear Calc Estimated GFR Random Glucose Calcium Total Bilirubin AST ALT Alkaline Phosphatase Troponin I High Sens Total Protein Albumin Imaging Radiologist's Impressions: Impressions Head CT 12/29/22 17:25 IMPRESSION: No evidence of acute intracranial hemorrhage or edematous territorial infarction. Assessment and Plan (1) Acute right-sided weakness: Status: Acute Plan Pt is a 72-year-old male with a PMH significant for?HTN and HLD who presents to the ED for evaluation of right-sided weakness. Pt states he was eating dinner last night when he attempted to grab a glass and found he could not hold it. He attempted this twice and twice the glass fell. Pt then got up and tried to ambulate and noticed that his right leg was dragging behind him. Pt will be admitted to the hospital for treatment and further evaluation of possible CVA versus TIA. Acute right-sided weakness Question of CVA versus TIA CT of head negative for acute intracranial hemorrhage edematous to territorial infarction Patient given aspirin in the ED Will start on aspirin 81 mg qd, atorvastatin 40 mg qd Will get CTA of head and neck Will get MRI of head/brain wo contrast Lipid profile PT/OT consult Neurology consult Cardiac diet Monitor on telemetry HTN Continue amlodipine Full Code Attending:?Dr. Montemayor DVT Prophylaxis: Lovenox Patient be admitted to the hospital under observation on telemetry for monitoring and further evaluation of possible CVA versus TIA. Time Spent With Patient Time: Total time managing care of this patient today ____ minutes. Quality Stroke Does the patient have a stroke diagnosis?: Yes Reason for No Anti-thrombotic by Day Two: Contraindicated (Pt outside of tPA therapeutic window) VTE Prior VTE?: No VTE Risk Level:: Medical - moderate - high VTE Device Contraindication: Treatment Not Indicated VTE Drug Contraindication: N/A - Med Ordered
[2022-12-29 20:48] LABS: Magnesium 2.2 mg/dL (1.6-2.6)
[2022-12-29 20:57] VITALS: BP 173/81; PULSE 70; RESP 18; O2SAT 97
--- NOTE | 2022-12-29 20:59 | PHA.MEDREC ---
Pharmacy Consult ? Medication Reconciliation Pharmacy has completed the medication reconciliation. Spoke to patient's to confirm meds.
[2022-12-29] MEDS: iohexoL 350 MG/ML 100 ML INFUS..BTL IV (22:01)
[2022-12-29] MEDS: Enoxaparin Sodium 40 MG/0.4 ML SYRINGE SUBCUT (23:19)
[2022-12-29] MEDS: 0.9 % Sodium Chloride Flush 3 ML SYRINGE IVFLUSH (23:20)
[2022-12-29 23:31] VITALS: BP 145/76; PULSE 64; RESP 16; TEMP 36.7; O2SAT 97
[2022-12-30 05:10] VITALS: BP 136/72; PULSE 73; RESP 16; TEMP 36.8; O2SAT 96
[2022-12-30 06:57] LABS: Cholesterol 211 mg/dL; HDL Cholesterol 50 mg/dL; LDL Cholesterol Calculated 137 mg/dl; Triglycerides 121 mg/dL
[2022-12-30 07:14] VITALS: BP 152/91; PULSE 80; RESP 16; TEMP 36.7; O2SAT 99
[2022-12-30 07:22] VITALS: PULSE 80; O2SAT 99
[2022-12-30] MEDS: Aspirin Enteric Coated 81 MG TABLET.DR PO (10:20)
[2022-12-30] MEDS: 0.9 % Sodium Chloride Flush 3 ML SYRINGE IVFLUSH (10:20)
[2022-12-30 10:23] VITALS: BP 152/85; PULSE 67; RESP 16; O2SAT 99
--- NOTE | 2022-12-30 11:04 | P.CNNE_ITS ---
History of Present Illness Data of Consult Service Date: 12/30/22 Primary Care Provider: Raul Blackmon MD [facility] Reason for consult: Stroke 72 years old man with hypertension who came to hospital with a day or 2 history of right-sided numbness and weakness. There was no associated headache dizziness or visual symptom or speech or language difficulty. Now he was feeling better. 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 Meds Allergies Allergy/AdvReac Type Severity Reaction Status Date / Time No Known Allergies Allergy Unverified 02/09/22 14:10 Active Medications: Current Medications Acetaminophen (Acetaminophen 325 Mg Tablet) 650 mg PO Q6H PRN PRN Reason: Pain, Mild (Pain Scale 1-3) Aspirin (Aspirin Enteric Coated 81 Mg Tablet.Dr) 81 mg PO DAILY [facility] Last Admin: 12/30/22 10:20 Dose: 81 mg Docusate Sodium (Docusate Sodium 100 Mg Capsule) 100 mg PO DAILY PRN PRN Reason: Constipation Enoxaparin Sodium (Enoxaparin Sodium 40 Mg/0.4 Ml Syringe) 40 mg SUBCUT Q24H [facility] Last Admin: 12/29/22 23:19 Dose: 40 mg Ondansetron HCl (Ondansetron Hcl 4 Mg/2 Ml Vial) 4 mg IVPUSH Q8H PRN PRN Reason: Nausea and Vomiting Pharmacy Consult (Consult Rx Perform Med Rec) 1 each MISCELLANE ONCE PRN PRN Reason: Consult order Sodium Chloride (0.9 % Sodium Chloride Flush 3 Ml Syringe) 3 ml IVFLUSH QSHIFT [facility] Last Admin: 12/30/22 10:20 Dose: 3 ml Home Medications Medication Instructions Recorded Confirmed Last Taken Type amlodipine 5 mg tablet 5 mg PO DAILY 02/09/22 12/29/22 12/29/22 History Physical Exam Vital Signs: Vital Signs: Last Vital Signs Temp 98.1 F 12/30/22 07:14 Pulse 67 12/30/22 10:23 Resp 16 12/30/22 10:23 BP 152/85 H 12/30/22 10:23 Pulse Ox 99 12/30/22 10:23 O2 Del Method Room Air 12/30/22 07:14 BMI result Body Mass Index 28.1 Neuro: Other: he was alert and awake with normal spontaneity of speech fluency comprehension and anxious affect. Face was symmetrical. Visual young are full. Extraocular muscles were intact. There was nose definite pronator drift or focal weakness. Right plantar was extensor and left was equivocal. There was no sensory or visual extinction. Results Labs 12/29/22 15:17 12/29/22 15:17 Labs: Short CBC 12/29/22 Range/Units 15:17 WBC 6.8 (4.8-10.8) X10*3/uL Hgb 17.3 (14.0-18.0) g/dl Hct 51.2 (42.0-52.0) % Plt Count 173 (160-400) X10*3/uL BMP 12/29/22 15:17 Sodium 138 Potassium 3.9 Chloride 106 Carbon Dioxide 20 L BUN 12 Creatinine 0.87 Calcium 9.8 D Liver Function 12/29/22 Range/Units 15:17 Total Bilirubin 1.0 (0.0-1.0) mg/dL AST 19 (5-37) U/L ALT 22 (0-40) U/L Alkaline Phosphatase 57 (39-117) U/L Albumin 4.1 (3.5-5.0) g/dL CT and CTA of brain and neck were reviewed. This CT revealed a subacute left thalamic infarct while CTA did not reveal any vascular lesion. Assessment and Plan (1) Cerebral infarction: Status: Acute 72 years old man with hypertension related subacute left thalamic infarct causing right-sided weakness and numbness. He was already somewhat better. Mainstay of management is blood pressure control, statin, and anti-platelet agent. I recommend aspirin 81 mg daily with clopidogrel 75 mg daily for 3 months and then discontinuing 1 of them. Also treat him with statin and blood pressure control. PT OT consultation is recommended. Time Spent With Patient Time: Total time managing care of this patient today ____ minutes. Procedures Date of Service Date of Service: 12/30/22
--- NOTE | 2022-12-30 12:35 | MHC.CM.PN ---
Addendum entered by Laura Cottrell 12/30/22 14:11: Patient to d/c home today- no changes to previously documented d/c plan. Original Note: This development writer met w/ pt and his . From home no prior services to hospitalization Independent in the home. Retired. HCP copy requested. D/C plan home no services, although patient is open to [facility] as appropriate. to transport.
[2022-12-30 12:36] VITALS: BP 140/75; PULSE 67; RESP 16; O2SAT 98
[2022-12-30] MEDS: amLODIPine Besylate 5 MG TABLET PO (12:37)
--- NOTE | 2022-12-30 13:08 | PM.DS ---
DS: Providers Provider Date of Service: 12/30/22 Date of admission: 12/30/22 08:56 Date of discharge: 12/30/22 Primary care physician: Raul Blackmon MD Consults: 12/29/22 22:05 Consult to Neurology Routine Consulting Provider: [facility] Reason for consultation: ?CVA vs TIA Attending physician on discharge: Chris Seaman Discharging clinician: Raquel Richardson DS: Diagnosis Discharge Diagnosis (1) Cerebral infarction: Status: Acute DS: Summary Hospital Course Hospital Course: From H&P on day of admission Pt is a 72-year-old male with a PMH significant for?HTN and HLD who presents to the ED for evaluation of right-sided weakness. Pt states he was eating dinner last night when he attempted to grab a glass and found he could not hold it. He attempted this twice and twice the glass fell. Pt then got up and tried to ambulate and noticed that his right leg was dragging behind him. Neither pt nor his noted any facial droop, slurred speech, or difficulty with word finding.? Denies headache, vision changes.? No numbness or tingling.? He lay on the couch and took a 2-3 hour nap. When he awoke he continued to have residual upper extremity weakness but was able to ambulate without difficulty. He then went to bed and awoke the next morning with his symptoms resolved. Pt visited his PCP today who sent him to the ED for further evaluation.? Patient currently nearly back to baseline with only some lingering mild right arm pain.? Denies any residual right-sided weakness.? No chest pain/pressure palpitations.? Denies shortness of breath.? No fever, chills, nausea, vomiting, abdominal pain.? Of note patient stop taking his pravastatin 3 months ago due to myalgias and joint pain.? Patient states he used to be in so much pain that it was difficult to just bend over. Since stopping his statin he has greatly improved his mobility. In the ED pt was afebrile but hypertensive up to 178/87. Labs were grossly unremarkable.? Electrolytes WNL.? Hepatic function WNL.? Renal function WNL.? Troponin negative. CT?of head and brain showed no evidence of acute intracranial hemorrhage or edematous and territorial infarction. Pt was treated with aspirin 324 mg p.o. Pt will be admitted to the hospital for treatment and further evaluation of possible CVA versus TIA. Right side weakness secondary to subacute left thalamic infarct. brain CT was unremarkable. CTA was obtained which showed no large vessel occlusion or significant stenosis in the intracranial circulation. There are calcifications of the bilateral common carotid artery bifurcations with less than 50% luminal narrowing bilaterally. LDL cholesterol 137. Both arm and left leg weakness improved. He was evaluated by Physical therapy and Occupational therapy and not deemed to need any inpatient services or inpatient rehab. MRI showedsmall acute left thalamic infarct. He was seen in consultation by Neurology who recommended starting dual anti-platelet therapy for 3 months and then discontinuing one agent. The patient has been unable to tolerate statin therapy and has reportedly been on two different statins in the past. Will hold off on resuming statin therapy at this time. recommend outpatient follow-up with PCP to discuss alternative treatments to lower cholesterol and close blood pressure monitoring. Time Spent with Patient Time attestation: Total time managing care of this patient today ____ minutes. Discharge coordination time: Greater than 30 minutes Quality: Safe Use of Opioids Does Pt have an Active Cancer Diagnosis on the Problem List?: No Quality: Stroke Does the patient have a stroke diagnosis?: No Physical Exam Vital Signs: Vital Signs: Last Vital Signs Temp 98.1 F 12/30/22 07:14 Pulse 67 12/30/22 12:36 Resp 16 12/30/22 12:36 BP 140/75 H 12/30/22 12:36 Pulse Ox 98 12/30/22 12:36 O2 Del Method Room Air 12/30/22 12:36 BMI result Body Mass Index 28.1 Const: General: cooperative, comfortable, alert, awake and Physically active Nutritional Appearance: average body habitus Orientation/consciousness: patient oriented x3 Resp: Effort & Inspection: normal respiratory effort, able to speak in complete sentences, no respiratory distress and no use of accessory muscles Auscultation: clear to auscultation bilaterally Cardio: Rate: regular rate Heart sounds: S1 normal heart sound present and S2 normal heart sound present GI: Inspection: No distended Palpation (GI): Soft to palpation and nontender Neuro: General: patient oriented x3, moves all extremities and CN's II-XI intact bilaterally Extrem: General: Yes no pedal edema DS: Data Data Completed and Pending Labs on day of discharge: Laboratory Results - last 24 hr 12/29/22 12/29/22 12/29/22 15:17 15:17 15:19 WBC 6.8 RBC 5.46 Hgb 17.3 Hct 51.2 MCV 93.8 MCH 31.7 MCHC 33.8 RDW 12.8 Plt Count 173 MPV 9.2 L Immature Gran % (Auto) 0.3 Neut % (Auto) 66.6 Lymph % (Auto) 22.4 [place] % (Auto) 7.9 Eos % (Auto) 2.2 Baso % (Auto) 0.6 Lymph # (Auto) 1.5 [place] # (Auto) 0.5 Eos # (Auto) 0.2 Baso # (Auto) 0.0 Abs Immat Gran (auto) 0.02 Absolute Neuts (auto) 4.5 Absolute Nucleated RBC 0.000 Nucleated RBC % (auto) 0.0 PT INR Sodium 138 Potassium 3.9 Chloride 106 Carbon Dioxide 20 L Anion Gap 16 BUN 12 Creatinine 0.87 Estim Creat Clear Calc 83.3 Estimated GFR > 60 Random Glucose 98 Calcium 9.8 D Magnesium 2.2 Total Bilirubin 1.0 AST 19 ALT 22 Alkaline Phosphatase 57 Troponin I High Sens < 2.7 Total Protein 7.4 Albumin 4.1 Triglycerides Cholesterol LDL Cholesterol, Calc HDL Cholesterol 12/29/22 12/30/22 15:19 06:22 WBC RBC Hgb Hct MCV MCH MCHC RDW Plt Count MPV Immature Gran % (Auto) Neut % (Auto) Lymph % (Auto) [place] % (Auto) Eos % (Auto) Baso % (Auto) Lymph # (Auto) [place] # (Auto) Eos # (Auto) Baso # (Auto) Abs Immat Gran (auto) Absolute Neuts (auto) Absolute Nucleated RBC Nucleated RBC % (auto) PT 10.8 INR 0.9 Sodium Potassium Chloride Carbon Dioxide Anion Gap BUN Creatinine Estim Creat Clear Calc Estimated GFR Random Glucose Calcium Magnesium Total Bilirubin AST ALT Alkaline Phosphatase Troponin I High Sens Total Protein Albumin Triglycerides 121 Cholesterol 211 LDL Cholesterol, Calc 137 HDL Cholesterol 50 Imaging MRI - head: Radiologist's impression: ITS Impressions Head CT 12/29/22 17:25 IMPRESSION: No evidence of acute intracranial hemorrhage or edematous territorial infarction. Head/Neck CTA 12/29/22 22:18 IMPRESSION: 1. No large vessel occlusion or significant stenosis in the intracranial circulation. 2. Calcifications of the bilateral common carotid artery bifurcations with less than 50% luminal narrowing bilaterally. Brain MRI 12/30/22 12:03 IMPRESSION: Small acute left thalamic infarct. Discharge Plan Discharge Anticipated Discharge Date/Time: 12/30/22 13:22 Patient Disposition: Home, Self-Care Discharge Diagnosis: acute stroke Referrals: Raul Blackmon MD [Primary Care Provider] - 1 Week Discharge Medications: New aspirin 81 mg Tablet,Delayed Release (Dr/Ec) 81 mg PO DAILY 30 Days Qty: 30 0RF clopidogrel 75 mg Tablet 75 mg PO DAILY 30 Days Qty: 30 0RF Continued amlodipine 5 mg tablet 5 mg PO DAILY Discharge Orders: Discharge Order (Routine); Ordered 12/30/22 Ordered By: Raquel Richardson Activity on Discharge: As tolerated Stand Alone Forms: Patient Portal Discharge page Care Plan Goals: prevention of future stroke Health Concerns: right-sided weakness secondary to acute stroke MRI confirms small acute left thalamic infarct Plan of Treatment: Take aspirin and plavix for 3 months and then stop one agent based on PCP recommendation since you have been unable to tolerate statins, will not resume at this time. discuss alternative options with PCP Call to schedule follow up appointment with PCP Assessment: see discharge summary
== END 2022-12-30 14:18 | disposition home or self-care (01) | DRG 65 ==
LOC: HO.ED 20:01 → HO.EDOVER 22:39
PROVIDERS: Registered Nurse Emergency; Admitting Provider Student in an Organized Health Care Education/Training Program; Emergency Provider Emergency Medicine; PCP Internal Medicine; Visit Provider Physician Assistant Medical
DX: I63.89 Other cerebral infarction (principal); G81.91 Hemiplegia, unspecified affecting right dominant side; I10 Essential (primary) hypertension; E78.5 Hyperlipidemia, unspecified; K21.9 Gastro-esophageal reflux disease without esophagitis; R29.701 NIHSS score 1; Z79.899 Other long term (current) drug therapy
CPT/HCPCS: 36415; 70450; 70496; 70498; 70551; 80053; 80061; 83735; 84484; 85025; 85610; 97162; 97165; 99222; 99285; J1650; Q9967

== ENCOUNTER → 2022-12-29 15:05 | Outpatient (BNV) | payer MEDICARE, SELFPAY | PROVIDERS: Emergency Provider Emergency Medicine; PCP Internal Medicine; Visit Provider Student in an Organized Health Care Education/Training Program | DX: R53.1 Weakness (principal); I63.9 Cerebral infarction, unspecified | CPT/HCPCS: 99235; 99239 ==

== ENCOUNTER → 2023-01-31 14:29 | Outpatient (REF) | payer MEDICARE, SELFPAY ==
--- NOTE | 2023-01-31 14:31 | CA_ITS ---
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 Normal LV ejection fraction of 60-65% 2. Mildly dilated left atrium 3. Trivial aortic regurgitation 4. Normal RV systolic pressure 5. No pericardial effusion Findings Left Ventricle Normal left ventricular size, thickness, and systolic function. The visually estimated ejection fraction is between 60-65%. Spectral Doppler is indicative of a normal filling pattern. Right Ventricle Normal right ventricular cavity size and systolic function. Atria The left atrium is mildly dilated. There is no evidence of interatrial shunt. The right atrium is normal in size. Aortic Valve There is mild calcification of the aortic valve. There is no aortic valve stenosis. There is trace (trivial) aortic valve regurgitation. Mitral Valve Normal mitral valve structure and function. There is trace mitral valve regurgitation. There is no mitral valve stenosis. Pulmonic Valve The pulmonic valve is likely normal. There is trace pulmonic valve regurgitation. Tricuspid Valve Normal tricuspid valve structure. There is trace tricuspid valve regurgitation. The right ventricular systolic pressure is normal. The right ventricular systolic pressure is 19 mmHg. Normal right atrial pressure. There is no evidence of pulmonary hypertension. Great Vessels All visible segments of the aorta are normal in size. The pulmonary artery was not well visualized. Venous The inferior vena cava is normal in size and collapses greater than 50% with inspiration. Pericardium/Pleural There is no evidence of pericardial effusion. Prior Study Comparison No prior study available for comparison. Measurements 2D Linear Measurements IVSd: 0.98 0.6-0.9/0.6-1.0 cm LVIDd: 4.20 3.9-5.3/4.2-5.9 cm LVIDd Index: 2.11 2.4-3.2/2.2-3.1 cm/m2 LVIDs: 2.87 2.0-3.6 cm LVPWd: 0.71 0.7-1.1 cm LA Diam: 3.10 2.7-3.8/3.0-4.0 cm LAIDs Index: 1.56 1.5-2.3 cm/m2 LV Mass: 181.76 67-162/88-224 g LV Mass Index: 91.34 43-95/49-115 g/m2 LVOT Diam: 2.20 3.0+(-)1.3 cm 2D Systolic Function EF 4C: 61.90 >55% EF 2C: 62.00 >55% EF BiP: 61.80 >55% Mitral Valve MV Pk E: 0.66 MV PK A: 0.53 MV Decel Time: 144.00 E/A: 1.30 E'Lateral: 7.40 E'Medial: 5.44 E/E' Med: 12.20 E/E' Lat: 9.00 PHT: 42.00 MVA PHT: 5.24 Decel [place]: 4.60 Aortic Valve AoV Pk [place]: 1.12 AoV Mn [place]: 0.77 AoV VTI: 0.25 AoV Pk Grad: 5.00 Aov Mn Grad: 3.00 JOSEPH Cont.VTI: 2.81 LVOT LVOT Pk [place]: 0.81 LVOT Mn [place]: 0.56 LVOT VTI: 0.18 LVOT Pk Grad: 3.00 LVOT Mn Grad: 1.00 LVOT Diam: 2.20 LVOT Area: 3.80 Diastolic Function MV Pk E: 0.66 MV Pk A: 0.53 E/A: 1.30 E'Medial: 5.44 E/E' Med: 12.20 E' Laterial: 7.40 E/E' Lat: 9.00 Right Ventricle TAPSE (mm): 25.20 TVS' [place]: 12.20 Tricuspid Valve TR Pk [place]: 2.00 TR Pk Grad: 16.00 RA Press: 3.00 RVSP: 19.00 Great Vessels Aorta Sinus of Valsalva: 3.73 2.0-3.5 cm Ao Asc: 3.10 2.1-3.4 cm Updated in Other Vendor System with Status of Final Kapil Garíca MD electronically signed on 02/01/2023 11:59:27 AM with status of Final
== END ==
LOC: HO.CARD 14:29
PROVIDERS: PCP Internal Medicine; Visit Provider Internal Medicine
DX: I69.30 Unspecified sequelae of cerebral infarction (principal)
CPT/HCPCS: 93306

== ENCOUNTER → 2023-01-31 14:31 | Outpatient (BNV) | payer MEDICARE, SELFPAY | PROVIDERS: PCP Internal Medicine; Visit Provider Internal Medicine Cardiovascular Disease | DX: I35.8 Other nonrheumatic aortic valve disorders (principal) | CPT/HCPCS: 93306 ==

== ENCOUNTER 2023-03-15 07:34 | Outpatient (REF) | payer MEDICARE, SELFPAY ==
--- NOTE | ~2023-03-15 | XR_ITS ---
EXAMINATION: XR SHOULDER, RIGHT CLINICAL INFORMATION: Pain in right shoulder COMPARISON: None available. TECHNIQUE: AP external rotation, Grashey, scapular Y, and axillary views of the right shoulder. FINDINGS: The bones and soft tissues are normal. No fracture. Glenohumeral and acromioclavicular alignment is anatomic with normal joint space. No abnormal soft tissue calcifications. XR/XR shoulder RT min 2V IMPRESSION: Normal right shoulder.
--- NOTE | ~2023-03-15 | US_ITS ---
EXAMINATION: US EXTRACRANIAL CAROTID DUPLEX, BILATERAL CLINICAL INFORMATION: TIA, CVA COMPARISON: None available. TECHNIQUE: Real-time ultrasound and Doppler techniques (integrating B-mode 2-D vascular images, Doppler spectral analysis and color-flow Doppler imaging) were utilized to interrogate the extracranial carotid arteries, the vertebral arteries and proximal subclavian arteries bilaterally. The degree of stenosis is determined by criteria similar to NASCET. FINDINGS: Right Side: 1. There is mild atherosclerotic plaque seen in the bifurcation/proximal ICA region. 2. The common carotid artery PSV proximally is 91 cm/s and distally 77 cm/s. 3. The proximal internal carotid artery velocities are 63 cm/s systolic and 15 cm/s diastolic. 4. The proximal external carotid artery PSV is 98 cm/s. 5. The vertebral artery shows antegrade flow. 6. The subclavian artery waveforms are normal. Left Side: 1. There is moderate atherosclerotic plaque seen in the bifurcation/proximal ICA region. 2. The common carotid artery PSV proximally is 106 cm/s and distally 80 cm/s. 3. The proximal internal carotid artery velocities are 56 cm/s systolic and 8.3 cm/s diastolic. 4. The proximal external carotid artery PSV is 78 cm/s. 5. The vertebral artery shows antegrade flow. 6. The subclavian artery waveforms are normal. US/US carotid duplex BI IMPRESSION: 1. RIGHT: Minimal, non-hemodynamically significant stenosis of the proximal right internal carotid artery corresponding to a 0-49% stenosis by velocity criteria. 2. LEFT: Minimal, non-hemodynamically significant stenosis of the proximal left internal carotid artery corresponding to a 0-49% stenosis by velocity criteria.
--- NOTE | ~2023-03-15 | XR_ITS ---
EXAMINATION: XR HIP, RIGHT CLINICAL INFORMATION: Right hip pain COMPARISON: None available. TECHNIQUE: Two views of the right hip. FINDINGS: There is narrowing of the right hip joint with subchondral sclerosis and marginal spurring consistent with the appearance of changes of degenerative osteoarthritis. There is no fracture or subluxations. Vascular calcifications seen in the soft tissues. 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
[2023-03-15 11:14] LABS: MANUAL DIFF FLAG NO
[2023-03-15 11:38] LABS: Basophils Absolute Auto 0.1 X10*3/uL (0.0-0.2); Basophils Percent Auto 1.1 % (0-2); Eosinophils Absolute Auto 0.3 X10*3/uL (0.0-0.4); Eosinophils Percent Auto 6.7 % (0-4); Hematocrit 47.8 % (42.0-52.0); Hemoglobin 16.2 g/dl (14.0-18.0); Imm Gran Abs Auto 0.01 X10*3/uL (0.00-0.03); Imm Gran Pct Auto 0.2 % (0.0-0.4); Lymphocytes Absolute Auto 1.3 X10*3/uL (1.2-4.9); Lymphocytes Percent Auto 30.8 % (20-40); Mean Corpuscular HGB Conc 33.9 g/dl (31.0-36.0); Mean Corpuscular Hemoglobin 31.6 pg (27.0-33.0); Mean Corpuscular Volume 93.2 fL (80.0-98.0); Mean Platelet Volume 10.1 fL (9.4-12.4); Monocytes Absolute Auto 0.5 X10*3/uL (0.1-1.2); Monocytes Percent Auto 10.6 % (2-11); Neutrophils Absolute Auto 2.2 x10*3/uL (2.0-8.3); Neutrophils Percent Auto 50.6 % (45-73); Platelet Count 205 X10*3/uL (160-400); Red Blood Count 5.13 X10*6/uL (4.60-5.80); Red Cell Distribution Width 12.5 % (11.0-16.0); White Blood Count 4.4 X10*3/uL (4.8-10.8)
[2023-03-15 11:48] LABS: Alanine Aminotransferase 17 U/L (0-40); Albumin Level 3.9 g/dL (3.5-5.0); Alkaline Phosphatase 63 U/L (39-117); Anion Gap 11 (12-20); Aspartate Amino Transferase 19 U/L (5-37); Bilirubin Total 0.8 mg/dL (0.0-1.0); Blood Urea Nitrogen 12 mg/dL (9-16); Calcium 9.3 mg/dL (8.4-10.2); Carbon Dioxide 26 mmol/L (22-29); Chloride 106 mmol/L (96-108); Cholesterol 199 mg/dL (<200); Estimated Glomerular Filt Rate > 60; Glucose Fasting 111 mg/dL (60-99); HDL Cholesterol 56 mg/dL (>40); LDL Cholesterol Calculated 128 mg/dL (<100); Potassium 4.1 mmol/L (3.3-5.1); Sodium 139 mmol/L (135-145); Total Protein 6.8 g/dL (6.5-8.0); Triglycerides 79 mg/dL (<150)
[2023-03-15 12:10] LABS: Prostate Specific Antigen 4.99 ng/mL (<0.05-4.0)
== END 2023-03-15 07:35 | disposition home or self-care (01) ==
LOC: HO.HMGCX 07:34
PROVIDERS: PCP Internal Medicine; Visit Provider Internal Medicine
DX: I10 Essential (primary) hypertension (principal); E78.00 Pure hypercholesterolemia, unspecified; M25.511 Pain in right shoulder; M25.551 Pain in right hip; Z86.73 Personal history of transient ischemic attack (TIA), and cerebral infarction without residual deficits; Z12.5 Encounter for screening for malignant neoplasm of prostate
CPT/HCPCS: 36415; 73030; 73502; 80053; 80061; 84153; 85025; 93880

== ENCOUNTER 2023-05-24 18:16 | Inpatient (IN) | payer MEDICARE, SELFPAY ==
--- NOTE | ~2023-05-24 | MR_ITS ---
EXAMINATION: MR BRAIN WITHOUT CONTRAST CLINICAL INFORMATION: Stroke like symptoms. Dizziness. COMPARISON: CTA head and neck from 05/24/2023. TECHNIQUE: MRI of the brain was obtained using routine sequences without contrast. FINDINGS: No focal restricted diffusion is demonstrated to suggest acute or subacute cerebral ischemia. No evidence of acute or chronic hemorrhagic products on heme-sensitive imaging. Chronic lacunar infarct within the left thalamus. Scattered periventricular and deep white matter T2 FLAIR hyperintensities consistent with mild underlying microangiopathy. Proportional prominence of the ventricles and sulcal spaces without evidence of obstructive hydrocephalus. No abnormal mass effect. No midline shift. Normal appearance of the pituitary gland. Normal positioning of the cerebellar tonsils. Normal arterial and venous vascular flow voids are present. Normal, homogeneous marrow signal. Persistent metopic suture. Mild mucosal thickening of the paranasal sinuses. No signal abnormalities within the mastoids. MR/MR head/brain wo con IMPRESSION: 1. No acute intracranial abnormalities. 2. Mild underlying microangiopathy and generalized cerebral volume loss. Chronic lacunar infarct of the left thalamus.
--- NOTE | ~2023-05-24 | CT_ITS ---
EXAMINATION: CT ANGIOGRAM HEAD CT ANGIOGRAM NECK CLINICAL INFORMATION: Dizziness. COMPARISON: CTA head and neck from 12/29/2022. Brain MRI from 12/30/2022. TECHNIQUE: Initial noncontrast coal cutter imaging of the head and neck was performed. Noncontrast head CT was also performed. Test bolus sequences followed by intravenous administration 75 mL of Omnipaque 350. Helical imaging was performed in the axial plane from the aortic arch to the skull vertex. Delayed postcontrast imaging of the head was also performed. The data was processed at the tomography technologist's workstation for generation of MIP sequences. Angled MIPs and volume rendered reformatted images were also generated at an offline 3D workstation. Stenoses are assessed in accordance with NASCET criteria unless otherwise indicated. This CT examination was performed using dose optimization techniques as appropriate, variously including the following: *Automated exposure control. *Adjustment of mA and/or kV according to patient size (this includes techniques or standardized protocols for targeted exams where dose is matched to indication/reason for exam; i.e. extremities or head). *Use of iterative reconstruction technique. DLP: 2556 mGy-cm FINDINGS: CT Head: There is no evidence of acute intracranial hemorrhage or edematous territorial infarction. Chronic lacunar infarct of the left thalamus. Otherwise, glynn-white matter differentiation is preserved. A few foci of hypoattenuation in the periventricular and deep white matter are consistent with mild microangiopathy. Proportional prominence of the ventricles and sulcal spaces without evidence of obstructive hydrocephalus. No abnormal mass effect or midline shift. No extra-axial fluid collections. No pathologic intra-axial enhancement. No acute soft tissue or osseous abnormalities. Mild mucosal thickening of the paranasal sinuses. The mastoid air cells and middle ear cavities are clear. Periapical lucency associated with the maxillary right first molar. CT Neck: The thyroid gland and remaining cervical soft tissues are within normal limits. Mild degenerative retrolisthesis of C4 on C5. Otherwise, normal anatomic alignment. Advanced degenerative disc disease from C3-C7. Facet and uncovertebral joint arthropathy leads to osseous encroachment on the neural foramina from C3-C7. CT Upper Chest: The visualized lung apices and upper mediastinum are within normal limits. Neck CTA: Aortic Arch: Normal contour and caliber with mild calcific atherosclerotic disease. Classic 3 vessel branching pattern of the aortic arch. Great Vessel Origins: No significant stenosis of the branch origins. Right Common Carotid Artery: No focal stenosis or occlusion. Cervical Right Internal Carotid Artery: Calcific atherosclerotic disease of the carotid bulb and proximal internal carotid artery causing less than 50% stenosis. Left Common Carotid Artery: No focal stenosis or occlusion. Cervical Left Internal Carotid Artery: Calcific atherosclerotic disease of the carotid bulb and proximal internal carotid artery causing less than 50% stenosis. Cervical Right Vertebral Artery: Dominant. No focal stenosis or occlusion. Cervical Left Vertebral Artery: Hypoplastic throughout its course with concomitant decrease in caliber of the foramina transversarium. No focal stenosis or occlusion. Brain CTA: Intracranial Internal Carotid Arteries: Calcific atherosclerotic disease of the intracranial internal carotid arteries without occlusion or flow-limiting stenosis. Right Anterior Cerebral Artery: Normal A1 segment. Normal opacification of the distal TUNG segments. Left Anterior Cerebral Artery: Normal A1 segment. Normal opacification of the distal TUNG segments. Anterior Communicating Artery: Normal. Right Middle Cerebral Artery: Normal M1 segment of the MCA without focal stenosis or occlusion. Normal arborization of the distal segments. Left Middle Cerebral Artery: Normal M1 segment of the MCA without focal stenosis or occlusion. Normal arborization of the distal segments. Right Vertebral Artery: Normal V4 segment. Normal opacification of the proximal segments of the posterior inferior cerebellar artery. Left Vertebral Artery: Normal V4 segment. The posterior inferior cerebellar artery is not well opacified; however, there is no CT evidence of acute occlusion. Basilar Artery: Normal without focal stenosis or occlusion. Normal appearance of the proximal superior cerebellar arteries. Right Posterior Cerebral Artery: Normal P1 segment. Normal opacification of the distal FREIGHT BRAKE OPERATOR segments. Left Posterior Cerebral Artery: Normal P1 segment. Normal opacification of the distal FREIGHT BRAKE OPERATOR segments. Normal opacification of the superior sagittal, straight, transverse, and sigmoid sinuses. CT/CT angio head neck IMPRESSION: 1. No evidence of acute intracranial hemorrhage or edematous territorial infarction. Mild underlying microangiopathy and generalized cerebral volume loss. 2. CTA of the head and neck without proximal occlusion or flow-limiting stenosis.
--- NOTE | ~2023-05-24 | XR_ITS ---
EXAMINATION: XR CHEST CLINICAL INFORMATION: Diabetes COMPARISON: None available. TECHNIQUE: Frontal view of the chest was obtained. FINDINGS: No significant abnormality is noted involving the heart, lungs, mediastinum, bony thorax or soft tissues. XR/XR chest 1V IMPRESSION: Unremarkable chest examination.
[2023-05-24 18:32] VITALS: BP 185/91; BP 197/92; PULSE 83; PULSE 88; RESP 16; O2SAT 95; O2SAT 99; BMI 28.1
[2023-05-24 18:44] VITALS: BP 185/91; PULSE 88; RESP 16; O2SAT 95
--- NOTE | 2023-05-24 18:46 | PC.NURSE ---
Pt presenting to ED via EMS for dizziness x3 days. Pt was dx with COVID 1.5 weeks ago, started a zpack 6 days ago. Pt also had a stroke over the summer. Pt vomited this morning after taking his abx, then again this evening. Pt has a slight headache and complaining of his hand feeling asleep. Pt scored 0 on the FAST-ED score with EMS. Pt is A&Ox4, GCS 15. Pt is able to drive and care for himself. EMS placed a 20g IV in the left AC. Pt seen by Dr Pandey.
--- NOTE | 2023-05-24 18:48 | ECG_ITS ---
Test Reason : DIZZINESS Blood Pressure : / mmHG Vent. Rate : 073 BPM Atrial Rate : 073 BPM P-R Int : 170 ms QRS Dur : 082 ms QT Int : 400 ms P-R-T Axes : 067 072 026 degrees QTc Int : 440 ms Artifact in tracing Normal sinus rhythm Nonspecific ST abnormality Borderline ECG No previous ECGs available Referred By: Addison Pandey Electronically Signed By:FIDELINA SALGUERO
--- NOTE | 2023-05-24 18:51 | ED.DIZZY ---
HPI - Dizziness General Chief Complaint: Dizziness Stated Complaint: DIZZ,VOMITING PER EMS Time Seen by Provider: 05/24/23 18:40 Source: patient, EMS and old records reviewed Mode of arrival: EMS Limitations: no limitations History of Present Illness HPI Narrative: 73-year-old male history of hypertension, hyperlipidemia, GERD, ischemic stroke with minimal right-sided weakness as a result, overall patient almost have a full recovery from the 1st stroke 6 months ago until this morning he woke up with severe dizziness and room spinning with nausea and vomiting patient's symptoms started when he woke up this morning around 06:00 and continue all day today.. Patient also been having right hand numbness intermittently but do not appreciate any weakness, patient having hard time to balance himself when he stand up, no headache, no blurry vision, no neck stiffness, no CP, no SOB. Related Data Home Medications Medication Instructions Recorded Confirmed amlodipine 5 mg tablet 5 mg PO DAILY 02/09/22 05/24/23 cholecalciferol (vitamin D3) 25 25 mcg PO DAILY 05/24/23 05/24/23 mcg (1,000 unit) tablet famotidine 20 mg tablet 20 mg PO BID 05/24/23 05/24/23 pravastatin 20 mg tablet 20 mg PO DAILY 05/24/23 05/24/23 Previous Rx's Medication Instructions Recorded aspirin 81 mg tablet,delayed 81 mg PO DAILY 30 days #30 tabs 12/30/22 release Allergies Allergy/AdvReac Type Severity Reaction Status Date / Time No Known Allergies Allergy Unverified 02/09/22 14:10 Review of Systems Review of Systems: All other systems are reviewed and are negative Constitutional: Reports as per HPI and Reports no additional constitutional complaints Eyes: Reports as per HPI and Reports no additional eye complaints Reports system reviewed and no additional complaints, except as documented Cardiovascular: Reports as per HPI and Reports no additional cardiovascular complaints Respiratory: Reports as per HPI and Reports no additional respiratory complaints Gastrointestinal: Reports as per HPI and Reports no additional gastrointestinal complaints Genitourinary: Reports no additional female genitourinary complaints Musculoskeletal: Reports no additional musculoskeletal complaints Skin/Breast: Reports system reviewed and no additional complaints, except as docu Psychiatric: Reports no additional psychiatric complaints Endocrine: Reports no additional endocrine complaints Hematologic/Lymphatic: Reports no additional hematologic/lymphatic complaints Allergic/Immunologic: Reports no additional allergic/immunologic complaints Reports system reviewed and no additional complaints, except as documented and Reports Abnormal speech present [facility] Past Medical History Medical History High blood pressure Social History Social History Alcohol intake: current Alcohol intake frequency: 0-2 drinks per day Alcohol type: beer Patient Tobacco Use Status: Former Tobacco user Smoked in Last 30 Days: No Use of substances other than those prescribed or required for medical reasons: No Advance Directives: No Advance Directives Information Provided: No service: No 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 Blood pressure elevated. Heart rate normal. Respiratory rate normal. Temperature normal. Oxygen saturation normal. Appearance: Alert. Oriented X3. No acute distress. Head: Normal external exam. Normocephalic. Atraumatic. No Peoples signs noted. No raccoon eyes noted Eyes: PERRLA. EOMI. Conjunctiva and sclera normal. Eyelids normal. ENT: TM's Normal. Pharynx normal. Uvula midline. Moist mucous membranes. No trismus noted. No drooling noted. No muffled voice noted. Neck: Normal inspection. Neck supple. FROM. No adenopathy. Thyroid Normal. No meningeal signs. No neck mass noted. CVS: Normal heart rate and rhythm. Heart sound normal. No murmurs noted. Pulses normal throughout. Respiratory: No respiratory distress. Painless inspiration. Breath sounds normal. No wheezes/rales/rhonchi noted. Chest nontender. No accessory muscle usage noted or decreased air movement noted. Abdomen: Soft and nontender. Bowel sounds normal in all 4 quadrants. No distention noted. No organomegaly noted. No visible injury noted. Back: No CVA tenderness. Full range of motion noted. Skin: Skin warm and dry. Normal skin color. Normal skin turgor. No rashes/lesions/lacerations noted. Extremities: No lower extremity edema. Extremities exhibit normal range of motion. Extremities nontender. Neuro: Oriented X 3. Cranial nerve exam: II-XII are grossly intact No motor deficit. No sensory deficit. Reflexes normal. NIH Stroke Scale Time: 18:55 Level of Consciousness: Alert Level of Consciousness Questions: Answers both questions correctly Level of Consciousness Commands: Performs both tasks correctly Best Gaze: Normal Visual: No visual loss Facial Palsy: Normal Motor Arm (Right): No drift Motor Arm (Left): No drift Motor Leg (Right): No drift Motor Leg (Left): No drift Limb Ataxia: Absent Sensory: Normal Best Language: No aphasia Dysarthia: Normal Extinction and Inattention: No abnormality Score: 0 Course Reevaluation(s) Reevaluation #1: A 73-year-old male with history of strokes presented with vertigo and unsteadiness gait since he woke up this morning, patient had a history of CVA, CT/CTA is showing no acute major artery occlusion. Will admit for further neurological evaluation. UA is showing trace of leuk Estrace but patient is also been having frequent urination will start the patient on cefuroxime. Time: 21:21 Medications Administered Discontinued Medications Generic Name Dose Route Start Last Admin Trade Name Freq PRN Reason Stop Dose Admin Sodium Chloride 1,000 mls @ 999 mls/hr 05/24/23 18:48 05/24/23 18:56 Ns IV 05/24/23 19:48 999 mls/hr .Q1H1M ONE Administration Iohexol 85 ml 05/24/23 21:19 05/24/23 21:20 Iohexol 350 Mg/Ml 100 Ml Infus..Btl IV 05/24/23 21:20 85 ml ONCE ONE Administration Medical Decision Making Differential Diagnosis Differential Diagnoses: The differential diagnosis associated with the presentation includes (CVA, peripheral vertigo, electrolyte abnormality, dehydration, severe anemia, UTI, ACS.) Admission/Observation Consideration of admission/observation: Escalation of care including admission/observation considered Consult Healthcare Provider Management of the patient was discussed with: Hospitalist (Dr. Torres) Lab Data MDM Lab Attestation statement: I reviewed the patient's lab results. 05/24/23 19:06 05/24/23 19:06 Labs: Lab Results 12/06/23 12/06/23 Range/Units 19:06 19:49 WBC 7.9 (4.8-10.8) X10*3/uL RBC 5.09 (4.60-5.80) X10*6/uL Hgb 15.8 (14.0-18.0) g/dl Hct 46.5 (42.0-52.0) % MCV 91.4 (80.0-98.0) fL MCH 31.0 (27.0-33.0) pg MCHC 34.0 (31.0-36.0) g/dl RDW 12.3 (11.0-16.0) % Plt Count 192 (160-400) X10*3/uL MPV 9.6 (9.4-12.4) fL Immature Gran % (Auto) 0.3 (0.0-0.4) % Neut % (Auto) 82.5 H (45-73) % Lymph % (Auto) 11.0 L (20-40) % [place] % (Auto) 5.4 (2-11) % Eos % (Auto) 0.4 (0-4) % Baso % (Auto) 0.4 (0-2) % Lymph # (Auto) 0.9 L (1.2-4.9) X10*3/uL [place] # (Auto) 0.4 (0.1-1.2) X10*3/uL Eos # (Auto) 0.0 (0.0-0.4) X10*3/uL Baso # (Auto) 0.0 (0.0-0.2) X10*3/uL Abs Immat Gran (auto) 0.02 (0.00-0.03) X10*3/uL Absolute Neuts (auto) 6.6 (2.0-8.3) x10*3/uL Absolute Nucleated RBC 0.000 (0.0-0.012) X10*3/uL Nucleated RBC % (auto) 0.0 (0.0-0.2) /100WBC PT 11.4 (11.1-13.3) SEC INR 0.9 (0.9-1.1) APTT 26.6 (26.0-36.4) SEC Sodium 141 (135-145) mmol/L Potassium 4.3 (3.3-5.1) mmol/L Chloride 106 (96-108) mmol/L Carbon Dioxide 25 (22-29) mmol/L Anion Gap 14 (12-20) BUN 12 (9-16) mg/dL Creatinine 0.92 (0.5-1.4) mg/dL Estim Creat Clear Calc 77.7 Estimated GFR > 60 Random Glucose 144 H (60-115) mg/dL Calcium 9.2 (8.4-10.2) mg/dL Total Bilirubin 0.9 (0.0-1.0) mg/dL Direct Bilirubin 0.3 (0.0-0.5) mg/dL AST 19 (5-37) U/L ALT 26 (0-40) U/L Alkaline Phosphatase 78 (39-117) U/L Troponin I High Sens < 2.7 (<3.5-35.0) ng/L Total Protein 7.1 (6.5-8.0) g/dL Albumin 4.0 (3.5-5.0) g/dL Lipase 24 (8-78) U/L Urine Color Yellow Urine Appearance Clear Urine pH 5.5 (5.0-9.0) Ur Specific [place] 1.015 (1.005-1.025) Urine Protein Negative (Neg-Trace) mg/dL Urine Glucose (UA) Negative (Negative) mg/dL Urine Ketones 15 (Negative) mg/dL Urine Blood Negative (Negative) Urine Nitrite Negative (Negative) Ur Leukocyte Esterase Trace H (Negative) Urine RBC 0-2 (0-2) /HPF Urine WBC 0-5 (0-5) /HPF Ur Squamous Epith Cells 0-2 (0-2) /HPF Urine Bacteria None Seen (None Seen) Hyaline Casts 0-2 (0-2) /LPF Independent Interpretation I performed an independent interpretation of an: EKG (Normal sinus rhythm at 75 beats per minute, normal axis deviation, normal intervals, no ST-T changes, artifact), Plain X-Ray (Chest: No acute intrathoracic pathology.) and CT Scan (Head/head and neck CTA: No acute pathology.) Radiology Impression Discussion of test interpretation with radiology: I have reviewed the radiologist's reading. Chronic Conditions Patient?s care impacted by: Other (CVA.) Discharge Plan Discharge Clinical Impression: Vertigo, Acute UTI Patient Disposition: Admitted As Inpatient
[2023-05-24] MEDS: 0.9 % Sodium Chloride 1,000 ML 999 ML IV (18:56)
[2023-05-24 19:20] LABS: MANUAL DIFF FLAG NO
[2023-05-24 19:22] LABS: Basophils Percent Auto 0.4 % (0-2); Eosinophils Percent Auto 0.4 % (0-4); Hematocrit 46.5 % (42.0-52.0); Hemoglobin 15.8 g/dl (14.0-18.0); Imm Gran Abs Auto 0.02 X10*3/uL (0.00-0.03); Imm Gran Pct Auto 0.3 % (0.0-0.4); Lymphocytes Absolute Auto 0.9 X10*3/uL (1.2-4.9); Mean Corpuscular Volume 91.4 fL (80.0-98.0); Mean Platelet Volume 9.6 fL (9.4-12.4); Monocytes Absolute Auto 0.4 X10*3/uL (0.1-1.2); Monocytes Percent Auto 5.4 % (2-11); Neutrophils Absolute Auto 6.6 x10*3/uL (2.0-8.3); Neutrophils Percent Auto 82.5 % (45-73); Platelet Count 192 X10*3/uL (160-400); Red Blood Count 5.09 X10*6/uL (4.60-5.80); Red Cell Distribution Width 12.3 % (11.0-16.0); White Blood Count 7.9 X10*3/uL (4.8-10.8)
[2023-05-24 19:28] LABS: INTERNATIONAL NORM RATIO 0.9 (0.9-1.1); Prothrombin Time 11.4 SEC (11.1-13.3)
[2023-05-24 19:31] LABS: Partial Thromboplastin Time 26.6 SEC (26.0-36.4)
[2023-05-24 19:54] LABS: Alanine Aminotransferase 26 U/L (0-40); Alkaline Phosphatase 78 U/L (39-117); Anion Gap 14 (12-20); Aspartate Amino Transferase 19 U/L (5-37); Bilirubin Direct 0.3 mg/dL (0.0-0.5); Bilirubin Total 0.9 mg/dL (0.0-1.0); Blood Urea Nitrogen 12 mg/dL (9-16); Calcium 9.2 mg/dL (8.4-10.2); Carbon Dioxide 25 mmol/L (22-29); Chloride 106 mmol/L (96-108); Creatinine Clr Calc Pharmacy 77.7; Estimated Glomerular Filt Rate > 60; Glucose Random 144 mg/dL (60-115); Lipase 24 U/L (8-78); Potassium 4.3 mmol/L (3.3-5.1); Sodium 141 mmol/L (135-145); Total Protein 7.1 g/dL (6.5-8.0); Troponin-I High Sensitivity < 2.7 ng/L (<3.5-35.0)
[2023-05-24 20:00] LABS: Appearance Urine Clear; Color Urine Yellow; Glucose Urine UA Negative (Negative); Leukocyte Esterase Urine Trace (Negative); Nitrite Urine Negative (Negative); PH 5.5 (5.0-9.0); Specific Gravity - Urine 1.015 (1.005-1.025); UMIC TRIGGER UACC YES; Urine Blood Negative (Negative); Urine Ketones 15 mg/dL (Negative); Urine Protein Negative (Neg-Trace)
[2023-05-24 20:02] LABS: Bacteria Urine None Seen (None Seen); Hyaline Casts Urine 0-2 /LPF (0-2); RBC Urine 0-2 /HPF (0-2); Squamous Epithelial Cell Urine 0-2 /HPF (0-2); WBC Urine 0-5 /HPF (0-5)
[2023-05-24] MEDS: iohexoL 350 MG/ML 100 ML INFUS..BTL 85 ML IV (21:20)
--- NOTE | 2023-05-24 21:27 | PHA.MEDREC ---
Pharmacy Consult ? Medication Reconciliation Pharmacy has completed the medication reconciliation. Patient's had list of medications that matched claim history. Reported no longer taking Plavix. Indira Reid, PharmD
[2023-05-24] MEDS: cefuroxime axetiL 500 MG TABLET PO (21:42)
[2023-05-24 22:00] VITALS: BP 181/75; PULSE 72; RESP 16; TEMP 36.1; O2SAT 100
[2023-05-24] MEDS: Enoxaparin Sodium 40 MG/0.4 ML SYRINGE SUBCUT (22:47)
--- NOTE | 2023-05-24 23:48 | P.HPHOSP_ITS ---
History of Present Illness Date of Service: 05/24/23 Attending physician on admission: Bill Wolf Chief Complaint: Dizziness, nausea and vomiting Patient is a 73 year old white male with PMH of vertigo, tinnitus, recent ischemic stroke with minimal right hemiparesis, hypertension, hyperlipidemia and COVID-19 infection 2 weeks ago presents to the emergency room accompanied by his for evaluation reporting that he woke up feeling dizzy today morning and has had multiple episodes of non-projectile, non-bloody emesis that has persisted for most of the day. He also reports intermittent episodes of numbness in the right hand (this is old since his stroke). He denies any associated fevers, chills, headache, slurred speech, chest pain, SOB, palpitations, abdominal pain, diarrhea or urinary symptoms. Initial work up done in the emergency room was significant for elevated blood pressure at 185/91 mmHg. Blood work done including CBC, CMP, PT & INR were normal. CT scan of the brain and CTA of th head and neck were also normal. He is currently feeling much better and admission was requested for concern of vertigo. Review of Systems 2 Review of Systems: Yes all other systems are reviewed and are negative [facility] Medical History (Updated 05/25/23 @ 05:35 by Bill Wolf MD) GERD (gastroesophageal reflux disease) Tinnitus COVID-19 Ischemic stroke High blood pressure Social History Alcohol intake: current Alcohol intake frequency: 0-2 drinks per day Alcohol type: beer Patient Tobacco Use Status: Former Tobacco user Smoked in Last 30 Days: No Use of substances other than those prescribed or required for medical reasons: No Advance Directives: No Advance Directives Information Provided: No service: No Current occupational status: 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 Meds Allergies Allergy/AdvReac Type Severity Reaction Status Date / Time No Known Allergies Allergy Unverified 02/09/22 14:10 Home Medications Medication Instructions Recorded Confirmed Last Taken Type amlodipine 5 mg tablet 5 mg PO DAILY 02/09/22 05/24/23 05/24/23 History cholecalciferol (vitamin D3) 25 25 mcg PO DAILY 05/24/23 05/24/23 05/24/23 History mcg (1,000 unit) tablet famotidine 20 mg tablet 20 mg PO BID 05/24/23 05/24/23 05/24/23 History pravastatin 20 mg tablet 20 mg PO DAILY 05/24/23 05/24/23 05/24/23 History Physical Exam 2 Vital Signs and Narrative: Vital Signs: Last Vital Signs Temp 96.9 F 05/24/23 22:00 Pulse 72 05/24/23 22:00 Resp 16 05/24/23 22:00 BP 181/75 H 05/24/23 22:00 Pulse Ox 100 05/24/23 22:00 O2 Del Method Room Air 05/24/23 22:00 BMI result Body Mass Index 28.1 General: Well nourished elderly white male in bed with at bedside. Awake, alert and oriented x 4. No apparent distress Eyes: No pallor or jaundice. PERRLA, EOMI HENT: Moist oral mucus membranes. No oropharyngeal lesions. Neck: Supple. No cervical adenopathy. No JVD Cardiovascular: Regular rate and rhythm. Normal heart sounds. No murmurs, rubs or gallops. No JVD. No peripheral edema. Respiratory: Normal respiratory effort with no accessory muscle use. CTAB. Gastrointestinal: Abdomen is soft, non-tender, non-distended. NABS. No hepatosplenomegally Extremities: No edema. No calf tenderness. Good peripheral pulses Skin - Warm/Dry. No rashes. No mottling. Capillary refill is < 2 seconds Neurological - AAOx4. Intact speech & cognition. Normal gait & balance. CN II - XII grossly intact but not individually tested. No motor or sensory deficits Hematologic: No bleeding. No ecchymosis. No swollen or tender lymph nodes. Psychiatric: Cooperative. Appropriate mood and affect . Results Labs 05/24/23 19:06 05/24/23 19:06 Labs: Laboratory Results - last 24 hr 05/24/23 05/24/23 19:06 19:49 MCV 91.4 MCH 31.0 MCHC 34.0 RDW 12.3 Plt Count 192 MPV 9.6 Immature Gran % (Auto) 0.3 Neut % (Auto) 82.5 H Lymph % (Auto) 11.0 L [place] % (Auto) 5.4 Eos % (Auto) 0.4 Baso % (Auto) 0.4 Lymph # (Auto) 0.9 L [place] # (Auto) 0.4 Eos # (Auto) 0.0 Baso # (Auto) 0.0 Abs Immat Gran (auto) 0.02 Absolute Neuts (auto) 6.6 Absolute Nucleated RBC 0.000 Nucleated RBC % (auto) 0.0 PT 11.4 INR 0.9 APTT 26.6 Anion Gap 14 Estim Creat Clear Calc 77.7 Estimated GFR > 60 Random Glucose 144 H Calcium 9.2 Total Bilirubin 0.9 Direct Bilirubin 0.3 AST 19 ALT 26 Alkaline Phosphatase 78 Total Protein 7.1 Albumin 4.0 Lipase 24 Urine Color Yellow Urine Appearance Clear Urine pH 5.5 Ur Specific [place] 1.015 Urine Protein Negative Urine Glucose (UA) Negative Urine Ketones 15 Urine Blood Negative Urine Nitrite Negative Ur Leukocyte Esterase Trace H Urine RBC 0-2 Urine WBC 0-5 Ur Squamous Epith Cells 0-2 Urine Bacteria None Seen Hyaline Casts 0-2 ECG Interpretation: NSR at 73 bpm. Normal axis. No acute ischemic changes Imaging Radiologist's Impressions: Impressions Chest X-Ray 05/24/23 18:57 IMPRESSION: Unremarkable chest examination. Head/Neck CTA 05/24/23 21:23 IMPRESSION: 1. No evidence of acute intracranial hemorrhage or edematous territorial infarction. Mild underlying microangiopathy and generalized cerebral volume loss. 2. CTA of the head and neck without proximal occlusion or flow-limiting stenosis. Assessment and Plan (1) Hypertensive urgency: Status: Acute (2) Vertigo: Status: Acute (3) Cerebral infarction: Qualifiers: Cerebral infarction mechanism: unspecified mechanism Qualified Code(s): I63.9 - Cerebral infarction, unspecified Status: Acute Plan 73 year old white male with PMH of vertigo, tinnitus, recent ischemic stroke with minimal right hemiparesis, hypertension, hyperlipidemia and COVID-19 infection 2 weeks ago here with 1. Vertigo - presentation is concerning for vertigo and not CVA - admit to telemetry - start PRN Meclizine 2. Hypertensive urgency - BP was 185/91 - reports compliance to Amlodipine - restart the same and increase dose to 10 mg - continue to closely monitor BP 3. H/O recent CVA - now with residual intermittent numbness of RUE - resume aspirin - improve BP control DVT: SC Lovenox CODE STATUS: Full code Admission for at least 2 midnights for management of hypertensive urgency Total time managing care of this patient today: 75 minutes. Quality Stroke Does the patient have a stroke diagnosis?: Yes Reason for No Anti-thrombotic by Day Two: N/A - Med Ordered VTE Prior VTE?: No VTE Risk Level:: Medical - moderate - high VTE Device Contraindication: N/A - Device Ordered VTE Drug Contraindication: N/A - Med Ordered
[2023-05-25] VITALS (7 sets, daily range): BP systolic 134–176; BP diastolic 74–96; PULSE 62–72; RESP 14–20; TEMP 37–37.4; O2SAT 96–98; BMI 27.5
--- NOTE | 2023-05-25 00:23 | MHC.EDTECH ---
PT placed on monitor at this time. PT vitals taken.
--- NOTE | 2023-05-25 05:05 | PC.NURSE ---
care assumed of patient at 3am; moved from 18H to bed 18. resting in stretcher comfortable at this time. no apparent distress. resp are even and unlabored. call lopez within reach; bed is in lowest position; brakes on; and side rails up.
[2023-05-25 06:57] LABS: Anion Gap 11 (12-20); Blood Urea Nitrogen 10 mg/dL (9-16); Calcium 8.8 mg/dL (8.4-10.2); Carbon Dioxide 26 mmol/L (22-29); Chloride 108 mmol/L (96-108); Creatinine Clr Calc Pharmacy 84.1; Estimated Glomerular Filt Rate > 60; Glucose Random 98 mg/dL (60-115); Magnesium 2.2 mg/dL (1.6-2.6); Sodium 141 mmol/L (135-145)
[2023-05-25 07:14] LABS: Thyroid Stimulating Hormone 0.96 uIU/mL (0.32-4.0)
[2023-05-25] MEDS: amLODIPine Besylate 5 MG TABLET PO (10:05)
[2023-05-25] MEDS: Aspirin Enteric Coated 81 MG TABLET.DR PO (10:05)
[2023-05-25] MEDS: Cholecalciferol (Vitamin D3) 25 MCG TABLET PO (10:05)
[2023-05-25] MEDS: 0.9 % Sodium Chloride Flush 3 ML SYRINGE IVFLUSH ×3 (10:06→21:11)
[2023-05-25] MEDS: Famotidine 20 MG TABLET PO ×2 (10:06→21:10)
--- NOTE | 2023-05-25 10:11 | PC.NURSE ---
assumed care of patient. AOX4, ambulatory. no neurological deficits noted, no facial droop or slurred speech, strength equal bilaterally. medicated with ordered meds, called pharm for prevastatin. family and patient waiting on neuro consult. BP 156/82, notified.
--- NOTE | 2023-05-25 11:36 | MHC.CM.PN ---
IMM 05/25/23 Pt. lives with , he does not have any home health services, nor medical equipment, he is independent with activities of daily living. His will provide transportation home upon DC. Pt has not used [facility] or been to [facility] in the past. CM will follow and assist with DC planning.
--- NOTE | 2023-05-25 12:01 | PC.NURSE ---
pt waiting for neurology consult. no distress at this time.
[2023-05-25] MEDS: Pravastatin Sodium 20 MG TABLET PO (12:04)
--- NOTE | 2023-05-25 12:45 | PM.NEUROCN ---
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 At 1 time he started feeling unsteady or dizzy. He said it was mostly when he was walking and he felt unsteady on his feet. There was no change in his speech or focal weakness. With that, he also had a headache that today was much better. Review of Systems Review of Systems: Recent cold or flu-like symptoms PMFSH Past Medical History Medical History (Updated 05/25/23 @ 05:35 by Bill Wolf MD) GERD (gastroesophageal reflux disease) Tinnitus COVID-19 Ischemic stroke High blood pressure Social History Social History Alcohol intake: current Alcohol intake frequency: 0-2 drinks per day Alcohol type: beer Patient Tobacco Use Status: Former Tobacco user Smoked in Last 30 Days: No Use of substances other than those prescribed or required for medical reasons: No Advance Directives: No Advance Directives Information Provided: No service: Yes Current occupational status: 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 [employer] Allergies Allergy/AdvReac Type Severity Reaction Status Date / Time No Known Allergies Allergy Unverified 02/09/22 14:10 Active Medications: Current Medications Acetaminophen (Acetaminophen 325 Mg Tablet) 650 mg PO Q6H PRN PRN Reason: Pain, Mild (Pain Scale 1-3) Al Hydroxide/Mg Hydroxide (Magnesium Hydrox/Alum Hydrox 30 Ml Oral.Susp) 30 ml PO Q4H PRN PRN Reason: Heartburn/Nausea Amlodipine Besylate (Amlodipine Besylate 5 Mg Tablet) 5 mg PO DAILY [facility]; Protocol Last Admin: 05/25/23 10:05 Dose: 5 mg Aspirin (Aspirin Enteric Coated 81 Mg Tablet.) 81 mg PO DAILY [facility] Last Admin: 05/25/23 10:05 Dose: 81 mg Enoxaparin Sodium (Enoxaparin Sodium 40 Mg/0.4 Ml Syringe) 40 mg SUBCUT Q24H [facility] Last Admin: 05/24/23 22:47 Dose: 40 mg Famotidine (Famotidine 20 Mg Tablet) 20 mg PO BID [facility] Last Admin: 05/25/23 10:06 Dose: 20 mg Melatonin (Melatonin 3 Mg Tablet) 6 mg PO BEDTIME PRN PRN Reason: Insomnia Ondansetron HCl (Ondansetron Hcl 4 Mg/2 Ml Vial) 4 mg IVPUSH Q8H PRN PRN Reason: Nausea and Vomiting Pravastatin Sodium (Pravastatin Sodium 20 Mg Tablet) 20 mg PO DAILY [facility] Last Admin: 05/25/23 12:04 Dose: 20 mg Sodium Chloride (0.9 % Sodium Chloride Flush 3 Ml Syringe) 3 ml IVFLUSH QSHIFT [facility] Last Admin: 05/25/23 10:06 Dose: 3 ml Vitamin D (Cholecalciferol (Vitamin D3) 25 Mcg Tablet) 25 mcg PO DAILY [facility] Last Admin: 05/25/23 10:05 Dose: 25 mcg Home Medications Medication Instructions Recorded Confirmed Last Taken Type amlodipine 5 mg tablet 5 mg PO DAILY 02/09/22 05/24/23 05/24/23 History cholecalciferol (vitamin D3) 25 25 mcg PO DAILY 05/24/23 05/24/23 05/24/23 History mcg (1,000 unit) tablet famotidine 20 mg tablet 20 mg PO BID 05/24/23 05/24/23 05/24/23 History pravastatin 20 mg tablet 20 mg PO DAILY 05/24/23 05/24/23 05/24/23 History Physical Exam Vital Signs: Vital Signs: Last Vital Signs Temp 98.6 F 05/25/23 06:31 Pulse 72 05/25/23 12:05 Resp 18 05/25/23 12:05 BP 154/78 H 05/25/23 12:05 Pulse Ox 97 05/25/23 06:31 O2 Del Method Room Air 05/25/23 06:31 BMI result Body Mass Index 28.1 Neuro: Other: He was alert and awake with normal spontaneity of speech fluency comprehension and anxious affect. Face was symmetrical. Visual young are full. Extraocular muscles were intact. There was no pronator drift. Epsugi-hs-qirm testing was normal. There was no focal weakness. Plantars were flexor. Speech was normal. Results Labs 05/24/23 19:06 05/25/23 05:16 Labs: Short CBC 05/24/23 Range/Units 19:06 WBC 7.9 (4.8-10.8) X10*3/uL Hgb 15.8 (14.0-18.0) g/dl Hct 46.5 (42.0-52.0) % Plt Count 192 (160-400) X10*3/uL BMP 05/24/23 05/25/23 19:06 05:16 Sodium 141 141 Potassium 4.3 4.0 Chloride 106 108 Carbon Dioxide 25 26 BUN 12 10 Creatinine 0.92 0.85 Calcium 9.2 8.8 Liver Function 05/24/23 Range/Units 19:06 Total Bilirubin 0.9 (0.0-1.0) mg/dL Direct Bilirubin 0.3 (0.0-0.5) mg/dL AST 19 (5-37) U/L ALT 26 (0-40) U/L Alkaline Phosphatase 78 (39-117) U/L Albumin 4.0 (3.5-5.0) g/dL Urine 05/24/23 Range/Units 19:49 Urine Color Yellow Urine Appearance Clear Urine pH 5.5 (5.0-9.0) Ur Specific [place] 1.015 (1.005-1.025) Urine Protein Negative (Neg-Trace) mg/dL Urine Glucose (UA) Negative (Negative) mg/dL CTA did not reveal any significant abnormality Assessment and Plan (1) Vertigo: Status: Acute 73 years old man with uncontrolled hypertension, small left thalamic ischemic infarction in December of 2022, recent treatment for possible sinus infection complain of unsteadiness and dizziness with headache. Blood pressure was still uncontrolled. He was at relatively high risk for stroke and an MRI of brain without contrast might be reasonable thing to do to rule out any vascular disease for his symptoms. The symptoms might also be related to viral infection. Anti-platelet agent and blood pressure control her mainly recommended. Procedures Date of Service Date of Service: 05/25/23
--- NOTE | 2023-05-25 13:44 | PC.NURSE ---
pt denies any dizziness or vertigo, has not experience either today. Pt ambulating well to the bathroom. MRI screening form done and faxed over.
[2023-05-25] MEDS: Enoxaparin Sodium 40 MG/0.4 ML SYRINGE SUBCUT (21:09)
[2023-05-26 03:29] VITALS: BP 141/73; PULSE 60; RESP 16; TEMP 36.9; O2SAT 96
[2023-05-26 07:35] VITALS: BP 141/74; PULSE 72; RESP 20; TEMP 36.3; O2SAT 96
--- NOTE | 2023-05-26 10:30 | P.DS_ITS ---
DS: Providers Provider Date of Service: 05/26/23 Date of admission: 05/24/23 22:31 Primary care physician: Raul Blackmon MD Consults: 05/25/23 09:57 Consult to Neurology Routine Consulting Provider: [facility] Reason for consultation: dizzines, vertigo Has provider been notified: No DS: Diagnosis Discharge Diagnosis (1) Vertigo: Status: Acute DS: Summary Hospital Course Hospital Course: Chief Complaint: Dizziness, nausea and vomiting Patient is a 73 year old white male with PMH of vertigo, tinnitus, recent ischemic stroke with minimal right hemiparesis, hypertension, hyperlipidemia and COVID-19 infection 2 weeks ago presents to the emergency room accompanied by his for evaluation reporting that he woke up feeling dizzy today morning and has had multiple episodes of non-projectile, non-bloody emesis that has persisted for most of the day. He also reports intermittent episodes of numbness in the right hand (this is old since his stroke). He denies any assoc iated fevers, chills, headache, slurred speech, chest pain, SOB, palpitations, abdominal pain, diarrhea or urinary symptoms. Initial work up done in the emergency room was significant for elevated blood pressure at 185/91 mmHg. Blood work done including CBC, CMP, PT & INR were normal. CT scan of the brain and CTA of th head and neck were also normal. He is currently feeling much better and admission was requested for concern of vertigo. Hospital course: The patient arrived experiencing dizziness, nausea, and vomiting, with elevated blood pressure raising concerns about a possible stroke. However, both the CT scan of the brain and the CTA of the head and neck showed no signs of an acute stroke. A neurologist assessed the patient and suggested an MRI, which also revealed no evidence of a stroke. Fortunately, the vertigo has subsided. While the blood pressure has improved, the dosage of Norvasc will be upped to 10 mg to achieve optimal blood pressure control. It appears the patient likely experienced vertigo related to a viral infection. final diagnosis: Vertigo HTN urgency Time Attestation Discharge coordination time: Greater than 30 minutes Quality: Safe Use of Opioids Does Pt have an Active Cancer Diagnosis on the Problem List?: No Quality: Stroke Does the patient have a stroke diagnosis?: No Physical Exam Vital Signs: Vital Signs: Last Vital Signs Temp 97.4 F 05/26/23 07:35 Pulse 72 05/26/23 07:35 Resp 20 05/26/23 07:35 BP 141/74 H 05/26/23 07:35 Pulse Ox 96 05/26/23 07:35 O2 Del Method Room Air 05/26/23 07:35 BMI result Body Mass Index 27.5 Const: Other: General: AO X 3, no acute distress Resp: CTA bilateral CVS: S1,S2,RRR GI: +BS, NT, no distention Skin: No rash Neuro: motor grossly intact Psych: appropriate affect Discharge Plan Discharge Anticipated Discharge Date/Time: 05/26/23 10:26 Patient Disposition: Home, Self-Care Discharge Diagnosis: Vertigo Referrals: Raul Blackmon MD [Primary Care Provider] - 1 Week Discharge Medications: New amlodipine [Norvasc] 10 mg tablet 10 mg PO DAILY Qty: 30 1RF meclizine 12.5 mg tablet 12.5 mg PO TID PRN (Reason: motion sickness) Qty: 15 0RF Continued aspirin 81 mg Tablet,Delayed Release (Dr/Ec) 81 mg PO DAILY 30 Days Qty: 30 0RF famotidine 20 mg tablet 20 mg PO BID pravastatin 20 mg tablet 20 mg PO DAILY cholecalciferol (vitamin D3) 25 mcg (1,000 unit) Tablet 25 mcg PO DAILY Discontinued amlodipine 5 mg tablet 5 mg PO DAILY Discharge Orders: Discharge Order (Routine); Ordered 05/26/23 Ordered By: Kelechi Hernandez Diet: Advance to usual diet Activity on Discharge: As tolerated Stand Alone Forms: Patient Portal Discharge page Care Plan Goals: Recovered from vertigo Health Concerns: vertigo hypertension urgency Plan of Treatment: Please continue your medications. It's important to mention that the dosage of Norvasc has been raised to 10 mg per day to better manage your blood pressure. Make sure to schedule a follow-up with your primary care doctor for a blood pressure check and any necessary adjustments to your medication. Take meclizine as needed for motion sickness/vertigo, please note that it can cause dizziness and you avoid driving or operation heavy machinery while taking this. Assessment: See above Patient Instructions: Vertigo (DC) Discharge Date/Time: 05/26/23 11:48
--- NOTE | 2023-05-26 10:57 | MHC.CM.PN ---
Pt has been medically cleared for DC, he will go home via private transportation, no home health services needed.
[2023-05-26] MEDS: Aspirin Enteric Coated 81 MG TABLET.DR PO (11:00)
[2023-05-26] MEDS: Famotidine 20 MG TABLET PO (11:00)
[2023-05-26] MEDS: Pravastatin Sodium 20 MG TABLET PO (11:00)
[2023-05-26] MEDS: amLODIPine Besylate 5 MG TABLET PO ×2 (11:01)
[2023-05-26] MEDS: Cholecalciferol (Vitamin D3) 25 MCG TABLET PO (11:01)
[2023-05-26] MEDS: 0.9 % Sodium Chloride Flush 3 ML SYRINGE IVFLUSH (11:02)
[2023-05-26 11:16] VITALS: BP 162/72; PULSE 72; RESP 20; TEMP 36.8; O2SAT 97
== END 2023-05-26 11:48 | disposition home or self-care (01) | DRG 305 ==
LOC: HO.ED 21:21 → HO.EDOVER 22:38 → HO.IMC 05-25 14:24
PROVIDERS: Admitting Provider Internal Medicine; Emergency Provider Emergency Medicine; PCP Internal Medicine; Visit Provider Internal Medicine
DX: I16.0 Hypertensive urgency (principal); I69.331 Monoplegia of upper limb following cerebral infarction affecting right dominant side; I10 Essential (primary) hypertension; E78.5 Hyperlipidemia, unspecified; R42 Dizziness and giddiness; Z79.82 Long term (current) use of aspirin; Z79.899 Other long term (current) drug therapy
CPT/HCPCS: 36415; 70496; 70498; 70551; 71045; 80048; 80076; 81001; 81003; 83690; 83735; 84443; 84484; 85025; 85610; 85730; 93005; 99285; J1650; Q9967

== ENCOUNTER → 2023-05-24 18:48 | Outpatient (BNV) | payer MEDICARE, SELFPAY | PROVIDERS: Admitting Provider Internal Medicine; Emergency Provider Emergency Medicine; PCP Internal Medicine; Visit Provider Internal Medicine | DX: R42 Dizziness and giddiness (principal) | CPT/HCPCS: 93010 ==

== ENCOUNTER → 2023-05-24 22:31 | Outpatient (BNV) | payer MEDICARE, SELFPAY | PROVIDERS: Admitting Provider Internal Medicine; Emergency Provider Emergency Medicine; PCP Internal Medicine; Visit Provider Internal Medicine | DX: R42 Dizziness and giddiness (principal) | CPT/HCPCS: 99223; 99239 ==

== ENCOUNTER → 2023-06-23 07:45 | Outpatient (REF) | payer MEDICARE, SELFPAY ==
--- NOTE | 2023-06-23 07:48 | CA_ITS ---
Acquisition Time: 2023-06-23 08:04:30 Total Exercise Time: 00:05:30 Test Indications: Z82.49 Medications: SEE H Protocol: DILIA Max HR: 144 BPM 96% of Pred: 149 BPM Max BP: 172/062 mmHG Max Work Load: 7.0 METS PT EXERCISED ON STD DILIA PROTOCOL FOR 530 INTO STAGE 2. MAX HR 144-96%MAX. NO CP . NO ARRHYTHMIAS. NONSPECIFIC ST CHANGES. EQUIVOCAL TEST. Referred By: Raul Hernandez Overread By: JUAN FRANCISCO HERNANDEZ MD
== END ==
LOC: HO.CARD 07:45
PROVIDERS: PCP Internal Medicine; Visit Provider Internal Medicine
DX: Z13.6 Encounter for screening for cardiovascular disorders (principal); Z82.49 Family history of ischemic heart disease and other diseases of the circulatory system
CPT/HCPCS: 93017

== ENCOUNTER 2023-06-27 09:18 | Outpatient (AMB) | payer MEDICARE, SELFPAY ==
--- NOTE | 2023-06-27 09:29 | A.OFFVIS_ITS ---
Intake Vital Signs 06/27/23 09:33 Height 5 ft 8 in Weight 182 lb BMI 27.7 Intake Visit Reasons: OV-L IF Mass Exc. 02/24/22 AR Intake Note: Yasmany 73 yr old male who is right hand dominant, presents today for his S/P Left index finger excision of epidermal inclusion cyst form DOS 02/24/[address] Singh. States his cyst has has come back. States his cyst is now bigger than what it was before. Seen with his PCP who advise for his to be seen again with Dr. Singh. Also states about 1 week his cyst ruptured and it has grown back. Allergies No Known Allergies Allergy (Unverified 06/27/23 09:33) HPI OV-L IF Mass Exc. 02/24/22 AR HPI Details Yasmany is a 73 year old right hand dominant man who returns to discuss his left index finger mass. He has a hx of an epidermal inclusion cyst removal, DOS: 02/24/22. He says this mass returned a few weeks ago, and ruptured last week while he was in the shower. This drained some bloody yellow & brown discharge, and his mass shrunk. It was initially painful, but the pain has subsided, and it is not as big as it was before drained. He says this interferes with his daily activities and gripping motions. He says he has a hx of an old injury to his index finger, and has a sliver of metal remaining in his finger that was not able to be removed via surgery in the past by Dr. Johnson.. He had a small stroke in 12/2022, but denies any medication for this. 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 Review of Systems Const All systems reviewed & are unremarkable except as noted in HPI and below Physical Exam Vital Signs: BMI result Body Mass Index 27.7 Const General: no acute distress and alert Orientation/consciousness: patient oriented x3 Neuro General: patient oriented x3 Extrem Other: Evaluation of Left Upper Extremity: The patient is alert, oriented, and in no acute distress Neuro: Median, Ulnar, Radial nerves motor and sensory intact and sensation is normal to the tips of all digits Vascular: Cap refill brisk ROM: He can make a fist and extend all his digits No locking or catching He has a mass over the volar aspect of the index finger middle phalanx, measuring ~1.5cm in diameter & ~8-9mm in thickness. This is mildly tender and somewhat mobile over the flexor tendon. However the skin feels adherant to the mass He has a healed scar at the proximal aspect of this mass, following drainage ~10 days ago. Drainage was dark yellow, brown, and bloody. No redness or erythema or warmth. No evidence of infection at present. Psych Appearance: grossly normal Affect: normal affect Attitude: cooperative Assessment & Plan Assessment & Plan (1) Epidermal inclusion cyst: Code(s): L72.0 - Epidermal cyst (2) Mass of finger of left hand: Code(s): R22.32 - Localized swelling, mass and lump, left upper limb Plan Assessment & Plan: 1. Left index finger mass Measuring ~1.5cm in diameter, and ~8-9mm in thickness S/P painful drainage ~10 days ago, brownish-yellow semi-solid discharge I educated him about this condition I discussed operative and non-operative treatment options The patient would like to proceed with surgery The risks and benefits of operative treatment were discussed with the patient and the patient wishes to proceed with surgery. These risks include, but are not limited to risk of damage to blood vessels, nerves, tendons, infection, recurrence, incomplete relief of preoperative symptoms, persistent pain, possible need for further surgery and the risks associated with regional blocks and anesthesia. The plan is to take the patient to the operating room sometime in the next few weeks for the following procedures: 1. Left index finger repeat mass excision, under local All of the preoperative paperwork including the consent was filled out today. All the patient's questions were answered. The patient understands that they will be contacted by our home health scheduler soon to schedule this procedure He denies Diabetes, blood thinners, asthma, heart, lung, kidney issues 2. History of left index finger epidermal inclusion cyst, DOS: 02/24/22 It is in the same area, but was removed hole at the time of surgery. Scribed for Samaria Singh MD by Dmitriy Flores, director medical economics, on 06/27/23 at 9:50 AM, EST. Coding Level of Care Code Est Pt Level 4 (29896) Diagnoses Epidermal inclusion cyst L72.0 Mass of finger of left hand R22.32
[2023-06-27 09:33] VITALS: BMI 27.7
== END 2023-06-27 09:58 | disposition home or self-care (01) ==
PROVIDERS: PCP Internal Medicine; Visit Provider Orthopaedic Surgery
DX: L72.0 Epidermal cyst (principal); R22.32 Localized swelling, mass and lump, left upper limb
CPT/HCPCS: 99214

== ENCOUNTER → 2023-06-27 09:18 | Outpatient (BNVA) | payer MEDICARE, SELFPAY | PROVIDERS: PCP Internal Medicine; Visit Provider Orthopaedic Surgery | DX: L72.0 Epidermal cyst (principal); R22.32 Localized swelling, mass and lump, left upper limb | CPT/HCPCS: 99212 ==

== ENCOUNTER → 2023-07-03 07:48 | Outpatient (REF) | payer MEDICARE, SELFPAY ==
--- NOTE | ~2023-07-03 | NM_ITS ---
Exercise Myocardial perfusion study Indication: Evaluate for myocardial ischemia. High risk with family history of ischemic heart disease Technique: The patient was brought in for an exercise perfusion study on 07/03/2023. Patient performed exercise as per Osvaldo protocol and was injected 30 mCi of sestamibi was given intravenously one target HR was achieved. Images were obtained using the SPECT gamma camera interlaced with the gating device. Images were obtained in supine position. Resting perfusion study was performed on 07/04/2023. Patient was administered 30 mCi of sestamibi intravenously at rest. Images were then obtained in supine position. Images obtained with and without CT attenuation. Total DLP 120 mGy-cm. Images were processed with the software and compared side to side in short axis, horizontal long axis and vertical long axis views. Findings: The stress perfusion study showed an attenuated images show minimally reduced uptake in the basal inferior wall of the LV myocardium. Attenuation corrected images show mildly reduced uptake in the distal anterior and apical wall of the LV myocardium.. The gated study shows normal LV systolic function with calculated LVEF of 68%. LV cavity is normal in size. The gated study shows normal systolic wall thickening and contraction of all segments. There is no transient ischemic dilation. Resting study shows no change in perfusion pattern compared to stress perfusion study. Gating at rest reveals normal systolic wall motion with ejection fraction at 73%. The findings are consistent with normal myocardial perfusion. NM/NM paty perf SPECT rest & str Impression: 1. Normal myocardial perfusion 2. Gated LVEF is 68% 3. Transient ischemic dilatation not present Stress EKG is equivocal for ischemia
--- NOTE | 2023-07-03 07:52 | CA_ITS ---
Acquisition Time: 2023-07-03 07:55:33 Total Exercise Time: 00:05:31 Test Indications: Abnormal Treadmill Test Medications: AMLODIPINE ASA FAMOTIDINE PRAXASTATIN MECLIZINE Protocol: DILIA Max HR: 146 BPM 97% of Pred: 149 BPM Max BP: 170/070 mmHG Max Work Load: 7.0 METS PT EXERCISED ON STD DILIA PROTOCOL FOR 530 INTO STAGE 2. ,MAX HR 144-96%MMAX. RARE ISOLATED PVC'S. NONSPECIFIC ST SAGGING. NO C/O CP OR SOB. CLINICALLY AND ELEC EQUIVOCAL. AWAIT SCAN RESULTS. Referred By: Raul Hernandez Overread By: JUAN FRANCISCO HERNANDEZ MD
== END ==
LOC: HO.CARD 07:48
PROVIDERS: PCP Internal Medicine; Visit Provider Internal Medicine
DX: R94.39 Abnormal result of other cardiovascular function study (principal); Z82.49 Family history of ischemic heart disease and other diseases of the circulatory system; Z79.82 Long term (current) use of aspirin; Z79.899 Other long term (current) drug therapy
CPT/HCPCS: 78452; 93017; A9500

== ENCOUNTER → 2023-07-03 08:15 | Outpatient (BNV) | payer MEDICARE, SELFPAY | PROVIDERS: PCP Internal Medicine; Visit Provider Internal Medicine Cardiovascular Disease | DX: R94.39 Abnormal result of other cardiovascular function study (principal) | CPT/HCPCS: 78452 ==

== ENCOUNTER 2023-09-11 09:52 | Day surgery (SDC) | payer MEDICARE, SELFPAY ==
[2023-09-11 10:36] VITALS: BP 172/77; PULSE 77; RESP 18; TEMP 36.6; O2SAT 100; BMI 28.6
--- NOTE | 2023-09-11 11:20 | MHC.SHP ---
Pre-Procedural Eval Section A - 24 Hr Update-Section A only Date of Service: 09/11/23 The patient is an INPATIENT: No Changes since office visit: No Cold of Flu in the past 2 weeks, No New Medical Problems, No Changes in Medication and No Patient answered all questions The patient has been examined within 24 hours of the surgical procedure. The History & Physical has been completed within 30 days and I have reviewed it.: Yes Section B - Complete if H&P > 30 days Chief Complaint: Localized swelling, mass and lump, left upper limb Allergies: Allergies Allergy/AdvReac Type Severity Reaction Status Date / Time No Known Allergies Allergy Unverified 06/27/23 09:33 Exam Exam Comment: Left index finger mass over the volar surface of the middle phalanx Plan Diagnosis/Plan: Unchanged I have reviewed the history and physical and performed a pertinent physical examination on my patient. No changes have occurred unless specified. Time Spent With Patient Time: Total time managing care of this patient today ____ minutes.
--- NOTE | 2023-09-11 11:20 | W.PM.OPN ---
Operative Note Operative Note Date of Service: 09/11/23 Narrative: Operative Note Preop diagnosis: 1. Left index finger mass, with recurrence Postop diagnosis: same Procedure: 1. Left index finger mass excisional biopsy Surgeon: Samaria Singh MD Anesthesia: digital block using 1% lidocaine with epinephrine Findings: 1 cm diameter white spherical soft tissue mass, filled with gritty white material, most consistent with an epidermal inclusion cyst EBL: Less than 5 mL Tourniquet time: None Specimens: Left index finger mass for histopathology Complications: None Disposition: Brought to recovery room in stable condition Plan: Follow-up for 7-10 days for wound check and suture removal and to check pathology Indications: The patient is 73 years old, with possible recurrence of a left index finger mass in a patient status post excision of an epidermal inclusion cyst in February of 2023. . The risks and benefits of operative treatment including but not limited to risk of damage to blood vessels, nerves, tendons, infection, persistent pain, persistent symptoms, recurrence or possible need for additional surgery were discussed with the patient and the patient wishes to proceed with surgery. Procedure: Once consent was obtained a digital block was performed in the preop area using a combination of 1% lidocaine with epinephrine. The patient was then brought back to the operating suite and placed on the operative table in supine position. A tourniquet was applied to the proximal aspect of the left upper extremity and the limb was prepped and draped in a standard surgical fashion. Once assured that we had a good block, I made an oblique incision centered over the soft tissue mass on the volar radial aspect of the left index finger middle phalanx. The incision was made through the skin the subcutaneous tissues using a 15. Blade. I then dissected down to the level of the mass using tenotomy and iris scissors. We encountered a soft tissue mass measuring approximately 1 cm in diameter that was adherent to the underlying skin and also the surrounding scar tissue. It was filled with a gritty white material, and this was most consistent with an epidermal inclusion cyst with recurrence. The mass was carefully dissected free from the surrounding tissues with care being taken in the area of the neurovascular structures . It was not particularly adherent to the flexor tendon sheath. The mass was then removed and placed on the back table to be sent for histopathologic review. Once satisfied with excision of the mass the wound was copiously irrigated with normal saline and hemostasis was obtained with a brief period of local pressure. The skin edges were reapproximated with some 5.0 nylon suture material and a sterile dressing was applied. The patient appears to have tolerated the procedure well and with no complications. All digits were well vascularized at the conclusion of the case.
[2023-09-11 13:51] VITALS: BP 171/86; PULSE 82; RESP 16; O2SAT 98
== END 2023-09-11 13:52 | disposition home or self-care (01) ==
PROVIDERS: PCP Internal Medicine; Visit Provider Orthopaedic Surgery
PROC: (CPT 11421; principal; 2023-09-11 11:50)
DX: L72.0 Epidermal cyst (principal); I10 Essential (primary) hypertension; Z79.899 Other long term (current) drug therapy; Z87.891 Personal history of nicotine dependence
CPT/HCPCS: 11421; 88304; J0171

== ENCOUNTER → 2023-09-11 09:52 | Outpatient (BNV) | payer MEDICARE, SELFPAY | PROVIDERS: PCP Internal Medicine; Visit Provider Orthopaedic Surgery | DX: L72.0 Epidermal cyst (principal) | CPT/HCPCS: 26115 ==

== ENCOUNTER 2023-09-26 10:29 | Outpatient (AMB) | payer MEDICARE, SELFPAY ==
--- NOTE | 2023-09-26 10:35 | A.OFFVIS_ITS ---
Intake Vital Signs 09/26/23 10:36 Height 5 ft 8 in Weight 188 lb BMI 28.6 Intake Visit Reasons: PO Lt IF mass exc 09/11/23 Intake Note: Yasmany 73 yr old male presents today for his PO visit for his left index finger mass excision 09/11/23. States he is having mild discomfort. Sutures removed and strei strips applied. Allergies No Known Allergies Allergy (Unverified 09/26/23 10:46) HPI PO Lt IF mass exc 09/11/23 HPI Details Yasmany is a 73 year old right hand dominant man who returns S/p left index finger epidermal cyst repeat excision, DOS: 09/11/23. He has a hx of an epidermal inclusion cyst removal, DOS: 02/24/22. He says he is doing well, with some mild numbness at the incision site following surgery. He says he is working on making a fist and is happy with the results of his surgery. He had a small stroke in 12/2022, but denies any medication for this. 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 Sutures removed and Steri-Strips applied With encouragement he can make a fist and extend all his digits Decreased subjective sensation in the radial digital nerve distribution of the index finger Normal sensation in the ulnar nerve distribution Cap refill is brisk Pathology Report: 09/11/23 Diagnosis Soft tissue, left index finger mass, excision: Epidermal inclusion cyst Psych Appearance: grossly normal Affect: normal affect Attitude: cooperative Assessment & Plan Assessment & Plan (1) Epidermal inclusion cyst: Code(s): L72.0 - Epidermal cyst Plan Assessment & Plan: 1. Left index Epidermal inclusion cyst, S/P repeat excision DOS: 09/11/23 The patient appears to be doing well post-operatively I educated him about the post-operative course I explained the signs and symptoms of infection. I discussed activity modifications, he is to lift nothing heavier than a cellphone for the next two weeks He will perform gentle ROM exercises at home He should avoid any underwater activities for the next 5 days He should gently massage about the incision site to reduce the risk of hypersensitivity He can follow up prn 2. History of left index finger epidermal inclusion cyst, DOS: 02/24/22 Scribed for Samaria Singh MD by Dmitriy Flores, senior medical technologist, on 09/26/23 at 10:50 AM, EST. Coding Level of Care Code Global (06297) Diagnoses Epidermal inclusion cyst L72.0
[2023-09-26 10:36] VITALS: BMI 28.6
== END 2023-09-26 11:06 | disposition home or self-care (01) ==
PROVIDERS: PCP Internal Medicine; Visit Provider Orthopaedic Surgery
DX: L72.0 Epidermal cyst (principal)
CPT/HCPCS: 99024

== ENCOUNTER → 2023-09-26 10:29 | Outpatient (BNVA) | payer MEDICARE, SELFPAY | PROVIDERS: PCP Internal Medicine; Visit Provider Orthopaedic Surgery | DX: Z48.817 Encounter for surgical aftercare following surgery on the skin and subcutaneous tissue (principal); Z98.890 Other specified postprocedural states | CPT/HCPCS: 99212 ==

== ENCOUNTER 2023-09-28 09:45 | Outpatient (AMB) | payer MEDICARE, SELFPAY ==
--- NOTE | 2023-09-28 09:50 | A.OFFVIS_ITS ---
Intake Intake Visit Reasons: PO Lt IF mass exc 09/11/23 Intake Note: Yasmany is a 73 year old male who presents today for a wound check s/p Lt IF mass exc 09/11/23. Patient reports having pain when he is washing his hands or touching around that area. Allergies No Known Allergies Allergy (Verified 09/28/23 09:50) HPI PO Lt IF mass exc 09/11/23 HPI Details 73-year-old right hand dominant male who presents in the office today 17 days status post left index finger mass excision, which was performed on 09/11/[address] Singh. The patient was last seen in the office on 09/26/[address] Singh, when he was instructed to lift nothing heavier than a cellphone for 2 weeks. He was educated on work on gentle ROM exercises at home. He was instructed to avoid underwater activities. Patient has a history of an epidermal inclusion cyst removal, performed on 02/24/2022. While in the office today the patient reports having pain when he is washing his hands or touching the area around the incision site. 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 No surrounding erythema or drainage. No signs of infection. One remaining suture at the proximal end of the incision site on the palmar aspect. NVI. This was removed with a blade and forceps. Immediate relief of discomfort. Assessment & Plan Assessment & Plan (1) Epidermal inclusion cyst: Code(s): L72.0 - Epidermal cyst Plan Mr. Banuelos a 73-year-old right hand dominant male who presents in the office today 17 days status post left index finger mass excision, which was performed on 09/11/[address] Singh. The patient was last seen in the office on 09/26/[address] Singh, when he was instructed to lift nothing heavier than a cellphone for 2 weeks. He was educated on work on gentle ROM exercises at home. He was instructed to avoid underwater activities. Patient has a history of an epidermal inclusion cyst removal, performed on 02/24/2022. While in the office today the patient reports having pain when he is washing his hands or touching the area around the incision site. There is a retained suture at the proximal end of the incision site. This was removed with a blade and forceps. Immediately after the removal the patient had release of discomfort. There are no signs of infection at this time. Follow up will be PRN, or sooner if needed. Patient Instructions: Scribed by Alyssa Morris medical chemist, for Candice Middleton PA-C on 09/28/2023 at 9:49 am,EST. Coding Level of Care Code Global (44826) Diagnoses Epidermal inclusion cyst L72.0
== END 2023-09-28 10:08 | disposition home or self-care (01) ==
PROVIDERS: PCP Internal Medicine; Visit Provider Physician Assistant
DX: L72.0 Epidermal cyst (principal)
CPT/HCPCS: 99024

== ENCOUNTER → 2023-09-28 09:45 | Outpatient (BNVA) | payer MEDICARE, SELFPAY | PROVIDERS: PCP Internal Medicine; Visit Provider Physician Assistant | DX: Z48.1 Encounter for planned postprocedural wound closure (principal); Z79.899 Other long term (current) drug therapy; Z87.2 Personal history of diseases of the skin and subcutaneous tissue | CPT/HCPCS: 99212 ==

== ENCOUNTER 2023-10-18 06:42 | Outpatient (REF) | payer MEDICARE, SELFPAY ==
[2023-10-18 10:36] LABS: MANUAL DIFF FLAG NO
[2023-10-18 10:43] LABS: Basophils Absolute Auto 0.1 X10*3/uL (0.0-0.2); Basophils Percent Auto 1.3 % (0-2); Eosinophils Absolute Auto 0.3 X10*3/uL (0.0-0.4); Eosinophils Percent Auto 6.7 % (0-4); Hematocrit 47.8 % (42.0-52.0); Hemoglobin 16.2 g/dl (14.0-18.0); Imm Gran Abs Auto 0.01 X10*3/uL (0.00-0.03); Lymphocytes Absolute Auto 1.5 X10*3/uL (1.2-4.9); Mean Corpuscular HGB Conc 33.9 g/dl (31.0-36.0); Mean Corpuscular Hemoglobin 31.8 pg (27.0-33.0); Mean Corpuscular Volume 93.9 fL (80.0-98.0); Mean Platelet Volume 9.6 fL (9.4-12.4); Monocytes Absolute Auto 0.6 X10*3/uL (0.1-1.2); Monocytes Percent Auto 11.9 % (2-11); Neutrophils Absolute Auto 2.2 x10*3/uL (2.0-8.3); Red Blood Count 5.09 X10*6/uL (4.60-5.80); Red Cell Distribution Width 12.8 % (11.0-16.0); White Blood Count 4.6 X10*3/uL (4.8-10.8)
[2023-10-18 11:37] LABS: Alkaline Phosphatase 67 U/L (39-117); Anion Gap 13 (12-20); Bilirubin Total 1.1 mg/dL (0.0-1.0); Blood Urea Nitrogen 15 mg/dL (9-16); Calcium 9.2 mg/dL (8.4-10.2); Carbon Dioxide 25 mmol/L (22-29); Chloride 103 mmol/L (96-108); Cholesterol 191 mg/dL (<200); Estimated Glomerular Filt Rate > 60; Glucose Fasting 104 mg/dL (60-99); HDL Cholesterol 63 mg/dL (>40); LDL Cholesterol Calculated 111 mg/dL (<100); Potassium 4.3 mmol/L (3.3-5.1); Sodium 137 mmol/L (135-145); Triglycerides 86 mg/dL (<150)
== END 2023-10-18 06:43 | disposition home or self-care (01) ==
LOC: HO.HMGCLDS 06:42
PROVIDERS: PCP Internal Medicine; Visit Provider Internal Medicine
DX: I10 Essential (primary) hypertension (principal); E78.00 Pure hypercholesterolemia, unspecified; Z86.73 Personal history of transient ischemic attack (TIA), and cerebral infarction without residual deficits; Z12.5 Encounter for screening for malignant neoplasm of prostate
CPT/HCPCS: 36415; 80053; 80061; 84153; 85025

== ENCOUNTER 2024-03-11 06:19 | Day surgery (SDC) | payer MEDICARE, SELFPAY ==
[2024-03-11 07:10] VITALS: BMI 28.4
[2024-03-11 07:19] VITALS: BP 156/75; PULSE 72; RESP 16; TEMP 36.7; O2SAT 98
--- NOTE | 2024-03-11 07:25 | HO.ANESPROP2 ---
Documented by User: Asha Hensley NP 03/08/24 08:33 HPI - Anesthesia Eval Consult details Narrative: 74yo M for Upper Endoscopy and Colonoscopy PMFSH Active Problems Active Problems: All Active Problems Mass of finger of left hand (Acute) Acute right-sided weakness (Acute) Epidermal inclusion cyst (Acute) Past Medical History Medical History Hyperlipidemia CVA (cerebral vascular accident) GERD (gastroesophageal reflux disease) Tinnitus COVID-19 Ischemic stroke High blood pressure Surgical History Surgical History Hx of prostate biopsy H/O colonoscopy Hx of hand surgery Social History Social History Household Members: Spouse Housing: House Are you a primary healthcare account manager to a significant other at home: No Do you presently have visiting nurse or other home services: No Alcohol intake: current Alcohol intake frequency: 0-2 drinks per day Alcohol type: beer Comment: counts correct Patient Tobacco Use Status: Former Tobacco user Use of substances other than those prescribed or required for medical reasons: No Have you been hit, kicked, punched, or otherwise hurt by someone within the past year? 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 Meds Allergies Allergy/AdvReac Type Severity Reaction Status Date / Time No Known Allergies Allergy Verified 09/28/23 09:50 Home Medications ?Medication ?Instructions ?Recorded ?Confirmed ?Last Taken ?Type cholecalciferol (vitamin D3) 25 25 mcg PO 2XW 05/24/23 03/07/24 05/24/23 History mcg (1,000 unit) tablet famotidine 20 mg tablet 20 mg PO BID 05/24/23 03/07/24 05/24/23 History pravastatin 20 mg tablet 20 mg PO DAILY 05/24/23 03/07/24 05/24/23 History atorvastatin 10 mg tablet 10 mg PO DAILY 03/07/24 03/07/24 Unknown History Exam Pertinent Lab Results Pertinent Lab Results: Laboratory Tests 10/18/23 07:01 WBC 4.6 L Hgb 16.2 Hct 47.8 Plt Count 193 Sodium 137 Potassium 4.3 Chloride 103 Carbon Dioxide 25 BUN 15 Creatinine 0.87 Narrative Narrative: NM paty perf SPECT rest & str 06/2023 Impression: 1. Normal myocardial perfusion 2. Gated LVEF is 68% 3. Transient ischemic dilatation not present Stress EKG is equivocal for ischemia Assessment and Plan Assessment Anesthesia Assessment: Chart Reviewed Documented by User: Violette Wahl, 03/11/24 07:33 PMFSH Past Medical History Medical History Hyperlipidemia CVA (cerebral vascular accident) GERD (gastroesophageal reflux disease) Tinnitus COVID-19 Ischemic stroke High blood pressure Family History Family history of problems with anesthesia: No Surgical History Surgical History Hx of prostate biopsy H/O colonoscopy Hx of hand surgery History of Problems with Anesthesia: No Social History Social History Household Members: Spouse Housing: House Are you a primary healthcare account manager to a significant other at home: No Do you presently have visiting nurse or other home services: No Alcohol intake: current Alcohol intake frequency: 0-2 drinks per day Alcohol type: beer Comment: counts correct Patient Tobacco Use Status: Former Tobacco user Use of substances other than those prescribed or required for medical reasons: No Have you been hit, kicked, punched, or otherwise hurt by someone within the past year? 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 Meds Allergies Allergy/AdvReac Type Severity Reaction Status Date / Time No Known Allergies Allergy Verified 09/28/23 09:50 Home Medications ?Medication ?Instructions ?Recorded ?Confirmed ?Last Taken ?Type cholecalciferol (vitamin D3) 25 25 mcg PO 2XW 05/24/23 03/07/24 05/24/23 History mcg (1,000 unit) tablet famotidine 20 mg tablet 20 mg PO BID 05/24/23 03/07/24 05/24/23 History pravastatin 20 mg tablet 20 mg PO DAILY 05/24/23 03/07/24 05/24/23 History atorvastatin 10 mg tablet 10 mg PO DAILY 03/07/24 03/07/24 Unknown History Exam Exam Date and Time: 03/11/24 0725 Height,Weight and Vital Signs: Height 5 ft 8 in Weight 84.822 kg Vital Signs Temperature 98.1 F 03/11/24 07:19 Pulse Rate 72 03/11/24 07:19 Respiratory Rate 16 03/11/24 07:19 Blood Pressure 156/75 H 03/11/24 07:19 Pulse Oximetry 98 03/11/24 07:19 Oxygen Delivery Method Room Air 03/11/24 07:19 Temperature 98.1 F 03/11/24 07:19 Pulse Rate 72 03/11/24 07:19 Respiratory Rate 16 03/11/24 07:19 Blood Pressure 156/75 H 03/11/24 07:19 Pulse Oximetry 98 03/11/24 07:19 Oxygen Delivery Method Room Air 03/11/24 07:19 Airway Mallampati Class: II TM Dist: >3cm Neck ROM: Full Loose/Missing/Broken Teeth: No (patient denies any loose or broken teeth) Heart: S1S2 Lungs: CTAB Assessment and Plan Assessment Anesthesia Assessment: Anesthesia Plan Discussed and Chart Reviewed Final Anesthetic Review Family History of Problems with Anesthesia: No History of Problems with Anesthesia: No NPO: Yes ASA Class: II Final Preanesthetic Review: No Changes in Pt Med Stat, Meds/Allgs Chart Reviewed, Consent Obtained/Reviewed and Anes Risks/Benef Reviewed Patient Risk: Low Procedure Risk: Low Anesthetic Plan Anesthetic Plan: MAC: and Agree w/ Assess. and Plan Disposition: Standard PACU
[2024-03-11] MEDS: Lactated Ringers 1,000 ML 100 ML IVCONT (07:28)
[2024-03-11 08:31] VITALS: BP 97/56; PULSE 62; RESP 16; TEMP 36.6; O2SAT 98
--- NOTE | 2024-03-11 08:34 | PM.OP ---
Brief Operative Note Date of Service: 03/11/24 Pre-op diagnosis: GERD, Screening Post-op diagnosis: other (Hiatal hernia, Polyps) Procedure: EGD with biopsies, Colonoscopy to the cecum and TI with bx/removal of polyps Surgeon: Jovanni Hatch MD Anesthesia: MAC Was an Substation Supervisor used for this Procedure?: No Estimated blood loss (mL): 2.0 Pathology: other (A. Polyp at 60cm B. Rectal polyp C. EG Junction at 39cm) Condition: stable Disposition: PACU
[2024-03-11 08:45] VITALS: BP 105/59; PULSE 57; RESP 16; O2SAT 98
[2024-03-11 09:00] VITALS: BP 128/62; PULSE 64; RESP 16; O2SAT 98
[2024-03-11 09:15] VITALS: BP 129/81; PULSE 64; RESP 16; TEMP 36.2; O2SAT 99
--- NOTE | 2024-03-11 09:26 | OP_ITS ---
DATE OF SERVICE: 03/11/2024 SURGEON: Jovanni Hatch MD INDICATIONS: The patient presents for evaluation of chronic gastroesophageal reflux, colorectal cancer screening, and personal history of tubular adenoma of the colon. Full consent has been obtained from him for both procedures, including risks of bleeding and perforation. PREOPERATIVE DIAGNOSIS: POSTOPERATIVE DIAGNOSIS: PROCEDURE PERFORMED: Esophagogastroduodenoscopy with biopsies, and colonoscopy to cecum and terminal ileum with biopsy and removal of polyps. ESTIMATED BLOOD LOSS: COMPLICATIONS: ANESTHESIA: Monitored anesthesia care. ASSISTANTS: SPECIMENS: PREOPERATIVE DIAGNOSES: Gastroesophageal reflux, colorectal cancer screening, personal history of tubular adenoma of the colon. POSTOPERATIVE DIAGNOSES: Gastroesophageal reflux, colorectal cancer screening, personal history of tubular adenoma of the colon, hiatal hernia, rule out Kate esophagus, colon polyps, diverticulosis, and internal hemorrhoids. DESCRIPTION OF PROCEDURE: The patient was placed in the left lateral decubitus position the digital rectal exam revealed no abnormalities. The Apruve video pediatric colonoscope was entered into the rectum and advanced easily to the cecum. Once in the cecum, I did identify normal-appearing cecal pouch with appendiceal orifice and a normal-appearing ileocecal valve. The terminal ileum was cannulated and appeared normal. The scope was withdrawn back in the colon. The entire cecum and ileocecal valve appeared normal. The scope was slowly withdrawn assessing all mucosal surfaces carefully. Preparation was excellent. At 60 cm was a flat, approximately 3 mm polyp, which was biopsied and completely removed with a cold biopsy forceps. In the proximal rectum was a flat, approximately 3 mm polyp, which was biopsied and completely removed with a cold biopsy forceps. I did not visualize any other polyps, colitis, nor angiodysplasia. There was a mild amount of sigmoid diverticulosis. In the rectum, scope was retroflexed visualizing small internal hemorrhoids, but no other pathology. Scope was straightened and withdrawn from the patient. He was turned around for the upper endoscopy. The Olympus video gastroscope was passed in the posterior oropharynx and upper esophagus under direct vision. The scope was passed slowly to the distal esophagus. The gastroesophageal junction was seen at 39 cm. There was some slight irregularity consistent with reflux and small less than 1 cm, possible areas of Kate mucosa but without any sign of esophagitis nor any lesions. The scope entered the stomach. There was a small hiatal hernia. The scope was advanced to the pylorus, and the duodenum was cannulated to the descending portion. The duodenum including the bulb appeared normal without mass or ulceration. The scope withdrawn back to the stomach. The gastric antrum and body appeared normal with good peristalsis. The scope was retroflexed visualizing the proximal stomach carefully, which appeared normal, without any sign of mass or ulceration. Scope was straightened and withdrawn back to the esophagus. Multiple biopsies were obtained at the EG junction at 39 cm. Proximal to that, the esophageal mucosa appeared normal. The scope was withdrawn from the patient. He tolerated both procedures well and was returned to the recovery area in stable condition. IMPRESSION: 1. Hiatal hernia, gastroesophageal reflux, rule out Kate esophagus. 2. Small colon polyps. 3. Diverticulosis. 4. Internal hemorrhoids. PLAN: The results of the biopsies will be checked. I would recommend a repeat colonoscopy in 5 years for further screening. If there is evidence of Kate esophagus, I would then recommend a repeat upper endoscopy in 3 years for surveillance in that regard. He was advised to continue his daily omeprazole and to resume his aspirin in 24 hours. He will otherwise see me on a p.r.n. basis. MD STEFF Ross/HERO / [id number]
== END 2024-03-11 09:44 | disposition home or self-care (01) ==
PROVIDERS: PCP Internal Medicine; Visit Provider Internal Medicine
PROC: (CPT 45380; principal; 2024-03-11 07:30)
DX: Z12.11 Encounter for screening for malignant neoplasm of colon (principal); Z86.010 Personal history of colon polyps; D12.4 Benign neoplasm of descending colon; K62.1 Rectal polyp; K57.30 Diverticulosis of large intestine without perforation or abscess without bleeding; K64.8 Other hemorrhoids; K21.9 Gastro-esophageal reflux disease without esophagitis; K44.9 Diaphragmatic hernia without obstruction or gangrene
CPT/HCPCS: 45380; 43239; 88305; 88313; J1596; J2704

== ENCOUNTER 2024-06-20 13:57 | Outpatient (REF) | payer MEDICARE, SELFPAY ==
[2024-06-20 14:15] LABS: MANUAL DIFF FLAG NO
[2024-06-20 14:42] LABS: Basophils Absolute Auto 0.1 X10*3/uL (0.0-0.2); Basophils Percent Auto 0.8 % (0-2); Eosinophils Absolute Auto 0.2 X10*3/uL (0.0-0.4); Eosinophils Percent Auto 2.4 % (0-4); Hematocrit 45.5 % (42.0-52.0); Hemoglobin 15.4 g/dl (14.0-18.0); Imm Gran Abs Auto 0.03 X10*3/uL (0.00-0.03); Imm Gran Pct Auto 0.4 % (0.0-0.4); Lymphocytes Absolute Auto 1.5 X10*3/uL (1.2-4.9); Lymphocytes Percent Auto 20.2 % (20-40); Mean Corpuscular HGB Conc 33.8 g/dl (31.0-36.0); Mean Corpuscular Hemoglobin 32.4 pg (27.0-33.0); Mean Corpuscular Volume 95.6 fL (80.0-98.0); Mean Platelet Volume 9.7 fL (9.4-12.4); Monocytes Absolute Auto 0.6 X10*3/uL (0.1-1.2); Monocytes Percent Auto 7.4 % (2-11); Neutrophils Absolute Auto 5.2 x10*3/uL (2.0-8.3); Neutrophils Percent Auto 68.8 % (45-73); Platelet Count 187 X10*3/uL (160-400); Red Blood Count 4.76 X10*6/uL (4.60-5.80); Red Cell Distribution Width 12.1 % (11.0-16.0); White Blood Count 7.6 X10*3/uL (4.8-10.8)
[2024-06-20 15:07] LABS: Alanine Aminotransferase 32 U/L (0-40); Albumin Level 4.1 g/dL (3.5-5.0); Alkaline Phosphatase 65 U/L (39-117); Anion Gap 10 (12-20); Aspartate Amino Transferase 25 U/L (5-37); Bilirubin Total 0.6 mg/dL (0.0-1.0); Blood Urea Nitrogen 14 mg/dL (9-16); C Reactive Protein < 0.10 mg/dL (< or = 0.50); Calcium 8.8 mg/dL (8.4-10.2); Carbon Dioxide 27 mmol/L (22-29); Chloride 108 mmol/L (96-108); Estimated Glomerular Filt Rate > 60; Glucose Random 106 mg/dL (60-115); Potassium 4.3 mmol/L (3.3-5.1); Sodium 141 mmol/L (135-145)
[2024-06-20 15:14] LABS: Rheumatoid Factor < 13.0 IU/mL (<15.0)
[2024-06-20 15:19] LABS: Erythrocyte Sedimentation Rate 2 MM/HR (0-15)
--- OUTSIDE RECORDS SUMMARY | 2024-06-20 15:23 | XMS_ITS ---
Author Organization [facility] Address [address] [place] [address] Care Team Providers Care Editor Continuity And Script Name Role Phone Raul Blackmon MD Primary Care Provider Jovanni Duran [phone] REASON FOR VISIT acid reflux Encounters Encounter Location Date Provider Diagnosis [facility] [address] [place] [address] 04/05/2024 Jovanni Hatch PLAN OF TREATMENT No Information
--- OUTSIDE RECORDS SUMMARY | 2024-06-20 15:23 | XMS_ITS | Patient Health Record ---
Author Organization [facility] Address [address] [place] [address] Care Team Providers Care Lime Boiler Name Role Phone Raul Blackmon MD Primary Care Provider Jovanni Duran Unavailable [phone] ALLERGIES No Known Allergies RESULTS Component Value Reference Range Notes Pathology Reviewed date:04/08/2024 12:19:07 AM Interpretation: Performing Lab:[facility], [address] [place] [phone] Notes/Report: REASON FOR REFERRAL No Information MEDICATIONS Medication SIG (Take, Route, Frequency, Duration) Notes Start Date End Date Status Vitamin D 5000 1 capsule Orally Once a day twice a week Active Atorvastatin Calcium 10 MG 1 tablet Orally Once a day Active Pravastatin Sodium 20 MG Oral for 90 Active amLODIPine Besylate 2.5 MG Oral for 90 Active Omeprazole 20 MG 1 Orally Once a day every morning for 90 days Please remind patient to stop his Famotidine when he starts the omeprazole. Thanks 11/16/2023 Active Famotidine 20 MG Oral for 90 A ctive IMMUNIZATIONS Vaccine Route Administration Date Status Comme nts Influenza Unknown 04/25/2018 Refused Influenza Unknown 11/16/2023 Refused SOCIAL HISTORY Sex Assigned At : Social History Observation Description Sex Assigned At Unknown Alcohol Screen Question Answer Notes Did you have a drink contain ing alcohol in the past year? Yes How often did you have a dri nk containing alcohol in the past year? 4 or more times a week (4 points) How many drinks did you have on a typical day when you were drinking in the past year? 1 or 2 drinks (0 point) How often did you have 6 or more drinks on one occasion in the past year? Never (0 point) Points 4 Interpretation Positive PROBLEMS Problem Type ICD Code Onset Dates Problem Status W/U Status Risk SNOMED Code Notes Problem Encounter for screening for malignant neoplasm of colon (Z12.11) Active confirmed 322216593 Problem History of adenomatous polyp of colon (Z86.010) Active confirmed 097738820 Problem Diverticulosis of large intestine without perforation or abscess without bleeding (K57.30) Active confirmed Diverticul ar disease of colon (795861200) Problem Gastroesophageal reflux disease (K21.9) Active confirmed Gastroesophagea l reflux disease (706674747) Problem Hypertension, unspecified type (I10) Active confirmed 82413041 Problem Chronic GERD (K21.9) Active confirmed Gastroesophagea l reflux disease (disorder) (103331880) VITAL SIGNS Temperature 97.5 degrees Fahrenheit 11/16/2023 Blood pressure diastolic 00 mm Hg 11/16/2023 Height 68 in 11/16/2023 Blood pressure systolic 000 mm Hg 11/16/2023 Weight 187 lb 8 oz lbs 11/16/2023 BMI 28.51 kg/m2 11/16/2023 Encounters Encounter Location Date Provider Diagnosis [facility] [place] Outpatient [address] [place] [phone] 03/11/2024 Jovanni Hatch Colon cancer screeni ng Z12.11 ; Colon polyps K63.5 ; Rectal polyp K62.1 ; Diverticulosis of large intestine without perforation or abscess without bleeding K57.30 ; Other hemorrhoids K64.8 ; Gastroesophageal reflux disease K21.9 and Hiatal hernia K44.9 [facility] [address] [place] [phone] 11/16/2023 Jovanni Hatch History of adenomato us polyp of colon Z86.010 ; Chronic GERD K21.9 and Encounter for screening for malignant neoplasm of colon Z12.11 [facility] [address] [place] [phone] 04/05/2024 Jovanni Hatch ASSESSMENTS Encounter Date Diagnosis Assessment Notes Treatment Notes Treatment Clinical Notes 03/11/2024 Colon cancer screeni ng (ICD-10 - Z12.11) 03/11/2024 Colon polyps (ICD-10 - K63.5) 11/16/2023 History of adenomato us polyp of colon (ICD-10 - Z86.010) 11/16/2023 Chronic GERD (ICD-10 - K21.9) When you start the new medicine Omeprazole for the reflux you should stop the Famotidine(Pepcid ). 03/11/2024 Rectal polyp (ICD-10 - K62.1) 11/16/2023 Encounter for screening for malignant neoplasm of colon (ICD-10 - Z12.11) Do not take the aspirin for two days before the colonoscopy 03/11/2024 Diverticulosis of large intestine without perforation or abscess without bleeding (ICD-10 - K57.30) 03/11/2024 Other hemorrhoids (ICD-10 - K64.8) 03/11/2024 Gastroesophageal reflux disease (ICD-10 - K21.9) 03/11/2024 Hiatal hernia (ICD-1 0 - K44.9) PLAN OF TREATMENT Future Test Test Name Order Date COLONOSCOPY 10/14/2011 COLONOSCOPY 04/25/2018 UPPER GI ENDOSCOPY 11/16/2023 COLONOSCOPY 11/16/2023 Insurance Providers Payer Name Payer Address Payer Phone Subscriber Number Group Number Insured Name Patient Relationship to Insured Coverage Start Date Coverage End Date MEDICARE OF [place] [address] [facility] [address] [phone] [id number] ELLIS MARKS Self - patient is the insured [employer] ATT[employer] CLAIMS [address] [place] [address] [id number] ELLIS MARKS Self - patient is the insured MEDICAL (GENERAL) HISTORY Medical History History ICD Code Denies [place],DM,Lung disease,renal disease Screening colonoscopy 10/2011 ---1 tubular adenoma removed, mild diverticulosis, small internal hemorrhoids Hyperlipidemia Benign prostate biopsy 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
--- OUTSIDE RECORDS SUMMARY | 2024-06-20 15:23 | XMS_ITS ---
Author Organization [facility] Address [address] [place] [address] Care Team Providers Care Audit Associate Name Role Phone Raul Blackmon MD Primary Care Provider Jovanni Duran Unavailable [phone] REASON FOR VISIT screening,hx polyps,gerd PROBLEMS Problem Type ICD Code Onset Dates Problem Status W/U Status Risk SNOMED Code Notes Problem Diverticulosis of large intestine without perforation or abscess without bleeding (K57.30) Active confirmed Diverticul ar disease of colon (106906334) Problem Gastroesophageal reflux disease (K21.9) Active confirmed Gastroesophagea l reflux disease (638719123) Encounters Encounter Location Date Provider Diagnosis [facility] [place] Outpatient [address] [place] [phone] 03/11/2024 Jovanni Hatch Colon cancer scree hayes Z12.11 ; Colon polyps K63.5 ; Rectal polyp K62.1 ; Diverticulosis of large intestine without perforation or abscess without bleeding K57.30 ; Other hemorrhoids K64.8 ; Gastroesophageal reflux disease K21.9 and Hiatal hernia K44.9 ASSESSMENTS Encounter Date Diagnosis Assessment Notes Treatment Notes Treatment Clinical Notes 03/11/2024 Colon cancer screeni ng (ICD-10 - Z12.11) 03/11/2024 Colon polyps (ICD-10 - K63.5) 03/11/2024 Rectal polyp (ICD-10 - K62.1) 03/11/2024 Diverticulosis of la rge intestine without perforation or abscess without bleeding (ICD-10 - K57.30) 03/11/2024 Other hemorrhoids (ICD-10 - K64.8) 03/11/2024 Gastroesophageal ref lux disease (ICD-10 - K21.9) 03/11/2024 Hiatal hernia (ICD-1 0 - K44.9) PLAN OF TREATMENT No Information
--- OUTSIDE RECORDS SUMMARY | 2024-06-20 15:23 | XMS_ITS ---
Author Organization [facility] Address [address] [place] [address] Care Team Providers Care Chromosomal Disorders Counselor Name Role Phone Raul Blackmon MD Primary Care Provider Jovanni Duran Unavailable [phone] ALLERGIES No Known Allergies REASON FOR VISIT Patient presents today for a screening colonoscopy MEDICATIONS Medication SIG (Take, Route, Frequency, Duration) Notes Start Date End Date Status Vitamin D 5000 1 capsule Orally Once a day twice a week Active Atorvastatin Calcium 10 MG 1 tablet Orally Once a day Active Pravastatin Sodium 20 MG Oral for 90 Active Omeprazole 20 MG 1 Orally Once a day every morning for 90 days Please remind patient to stop his Famotidine when he starts the omeprazole. Thanks 11/16/2023 Active Famotidine 20 MG Oral for 90 A ctive amLODIPine Besylate 2.5 MG Oral for 90 Active IMMUNIZATIONS Vaccine Route Administration Date Status Comme nts Influenza Unknown 11/16/2023 Refused SOCIAL HISTORY Sex [...] W/U Status Risk SNOMED Code Notes Problem Chronic GERD (K21.9) Active confirmed Gastroesophagea l reflux disease (disorder) (735508837) VITAL SIGNS BMI 28.51 kg/m2 11/16/2023 Blood pressure systolic 000 mm Hg 11/16/19 24 Blood pressure diastolic 00 mm Hg 024 Height 68 in 11/16/2023 Temperature 97.5 degrees Fahrenheit 11/16/19 24 Weight 187 lb 8 oz lbs 11/16/2023 Encounters Encounter Location Date Provider Diagnosis [facility] [address] [place] [address] 11/16/2023 Jovanni Hatch History of adenomato us polyp of colon Z86.010 ; Chronic GERD K21.9 and Encounter for screening for malignant neoplasm of colon Z12.11 ASSESSMENTS Encounter Date Diagnosis Assessment Notes Treatment Notes Treatment Clinical Notes 11/16/2023 History of adenomatous polyp of colon (ICD-10 - Z86.010) 11/16/2023 Chronic GERD (ICD-10 - K21.9) When you start the new medicine Omeprazole for the reflux you should stop the Famotidine(Pepcid) . 11/16/2023 Encounter for screening for malignant neoplasm of colon (ICD-10 - Z12.11) Do not take the aspirin for two days before the colonoscopy PLAN OF TREATMENT Medication Medication Name Sig Start Date Stop Date Notes Omeprazole 20 MG 1 Orally Once a day every morning for 90 days 11/16/2023 Please remind patien t to stop his Famotidine when he starts the omeprazole. Thanks Treatment Notes Assessment Notes Chronic GERD When you start the n ew medicine Omeprazole for the reflux you should stop the Famotidine(Pepcid). Encounter for screening for malignant neoplasm of colon Do not take the aspirin for two days bef ore the colonoscopy Future Test Test Name Order Date UPPER GI ENDOSCOPY 11/16/2023 COLONOSCOPY 11/16/2023 Next Appt Details Follow Up: prn, Reason: Progress Notes * Examination Category Sub-Category Detail Notes General Examination GENERAL APPEARANCE: pleasant , well nourished, well developed, in no acute distress HEAD: EYES: sclera non-icteric EARS: NOSE: THROAT: NECK/THYROID: no cervical lymphade nopathy, neck supple HEART: S1, S2 normal CHEST: LUNGS: clear to auscultatio n bilaterally ABDOMEN: normal bowel sounds, no guarding or rigidity, no guarding or rigidity, no masses palpable, soft, nontender, nondistended NEUROLOGIC: alert and oriented SKIN: nonjaundiced, no spi hi angiomata EXTREMITIES: no edema PERIPHERAL PULSES: BACK: BREASTS: MUSCULOSKELETAL: MALE GENITOURINARY: LYMPH NODES: RECTAL EXAM: FEMALE GENITOURINARY: ORAL CAVITY: mucosa moist
[2024-06-20 15:33] LABS: Vitamin B12 380 pg/mL (200-900)
[2024-06-21 22:48] LABS: Lyme Abs Screen <0.90 index
[2024-06-25 07:09] LABS: Anti Nuclear Antibody Screen NEGATIVE (NEGATIVE)
== END 2024-06-20 13:58 | disposition home or self-care (01) ==
LOC: HO.LAB 13:57
PROVIDERS: PCP Internal Medicine; Visit Provider Internal Medicine
DX: M25.559 Pain in unspecified hip (principal); I10 Essential (primary) hypertension
CPT/HCPCS: 36415; 80053; 82550; 82607; 85025; 85652; 86038; 86140; 86431; 86617; 86618

== ENCOUNTER 2024-06-25 09:14 | Outpatient (REF) | payer MEDICARE, SELFPAY ==
--- NOTE | ~2024-06-25 | XR_ITS ---
EXAMINATION: XR PELVIS CLINICAL INFORMATION: LEFT HIP PAIN COMPARISON: None available. TECHNIQUE: AP view of the pelvis. FINDINGS: Sclerosis and asymmetric joint space narrowing with subchondral cyst formation, right coxofemoral joint. No acute cortical disruption or malalignment. No lytic or blastic lesions. Spondylosis at L5-S1. Vascular calcifications. XR/XR pelvis 1-2V IMPRESSION: No acute fracture. Osteoarthrosis, right coxofemoral joint. Atherosclerosis disease, peripheral. Electronically signed by: Terrell Kelly MD 06/25/2024 10:31 AM [facility]AB[facility] ROJAS
--- OUTSIDE RECORDS SUMMARY | 2024-06-25 09:30 | XMS_ITS ---
Author Organization [facility] Address [address] [place] [address] Care Team Providers Care Analytics Intern Name Role Phone Raul Blackmon MD Primary Care Provider Jovanni Duran Unavailable [phone] REASON FOR VISIT screening,hx polyps,gerd PROBLEMS Problem Type ICD Code Onset Dates Problem Status W/U Status Risk SNOMED Code Notes Problem Diverticulosis of large intestine without perforation or abscess without bleeding (K57.30) Active confirmed Diverticul ar disease of colon (610652542) Problem Gastroesophageal reflux disease (K21.9) Active confirmed Gastroesophagea l reflux disease (790850130) Encounters Encounter Location Date Provider Diagnosis [facility] [place] [address] [place] [phone] 03/11/2024 Jovanni Hatch Colon cancer scree hayes [...]
--- OUTSIDE RECORDS SUMMARY | 2024-06-25 09:30 | XMS_ITS | Patient Health Record ---
Author Organization [facility] Address [address] [place] [address] Care Team Providers Care Hogshead Stripper Name Role Phone Raul Blackmon MD Primary Care Provider Jovanni Duran Unavailable [phone] ALLERGIES No Known Allergies RESULTS Component Value Reference Range Notes Pathology Reviewed date:04/08/2024 12:19:07 AM Interpretation: Performing Lab:[facility], [address] [place] [phone] Notes/Report: REASON FOR REFERRAL No Information MEDICATIONS [...] malignant neoplasm of colon (Z12.11) Active confirmed 274025265 Problem History of adenomatous polyp of colon (Z86.010) Active confirmed 390144080 Problem Diverticulosis of large intestine without perforation or abscess without bleeding (K57.30) Active confirmed Diverticul ar disease of colon (806330563) Problem Gastroesophageal reflux disease (K21.9) Active confirmed Gastroesophagea l reflux disease (815127886) Problem Hypertension, unspecified type (I10) Active confirmed 70392156 Problem Chronic GERD (K21.9) Active confirmed Gastroesophagea l reflux disease (disorder) (503971789) VITAL SIGNS Temperature 97.5 degrees Fahrenheit 11/16/2023 Blood pressure diastolic 00 mm Hg 11/16/2023 Height 68 in 11/16/2023 Blood pressure systolic 000 mm Hg 11/16/2023 Weight 187 lb 8 oz lbs 11/16/2023 BMI 28.51 kg/m2 11/16/2023 Encounters Encounter Location Date Provider Diagnosis [facility] [place] [address] [place] [phone] 03/11/2024 Jovanni Hatch Colon cancer screeni ng Z12.11 ; Colon polyps K63.5 ; Rectal polyp K62.1 ; Diverticulosis of large intestine without perforation or abscess without bleeding K57.30 ; Other hemorrhoids K64.8 ; Gastroesophageal reflux disease K21.9 and Hiatal hernia K44.9 [facility] [address] [place] [phone] 11/16/2023 Jovanni Hatch History of adenomato us polyp of colon Z86.010 ; Chronic GERD K21.9 and Encounter for screening for malignant neoplasm of colon Z12.11 [facility] [address] [place] [phone] 04/05/2024 Jovanni Hatch ASSESSMENTS Encounter Date Diagnosis [...] Date MEDICARE OF [place] [address] [facility] [place] [address] [id number] ELLIS MARKS Self - patient is the insured [employer] ATTN CLAIMS [address] [place] [address] [id number] ELLIS MARKS Self - patient is the insured MEDICAL (GENERAL) HISTORY Medical History History ICD Code Denies [place],DM,Lung disease,renal disease Screening colonoscopy 10/2011 ---1 tubular adenoma removed, mild diverticulosis, small internal hemorrhoids Hyperlipidemia Benign prostate biopsy 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
--- OUTSIDE RECORDS SUMMARY | 2024-06-25 09:30 | XMS_ITS ---
Author Organization [facility] Address [address] [place] [address] Care Team Providers Care Emergency Medical Services Coordinator Name Role Phone Raul Blackmon MD Primary Care Provider Jovanni Duran [phone] REASON FOR VISIT acid reflux Encounters Encounter Location Date Provider Diagnosis [facility] [address] [place] [address] 04/05/2024 Jovanni Hatch PLAN OF TREATMENT No Information
--- OUTSIDE RECORDS SUMMARY | 2024-06-25 09:30 | XMS_ITS | Continuity of Care Document ---
Author Name [facility] Organization [facility] Care Team Providers Care Cruise Director Name Role Phone [facility] Unavailable Unavailable Immunizations Combined list of available immunizations from the Department of Defense and Veterans Affairs facilities. Immunization Series Date Given Administered By Site Reaction Lot Number CVX Code Drug Storekeeper Engineering Status Comments Source COVID-19 (MODERNA), MRNA, LNP-S, PF, 100 MCG/0.5 ML DOSE 2 2020 207 complet ed MOD; [id number]; 1 [facility] COVID-19 (MODERNA), MRNA, LNP-S, PF, 100 MCG/0.5 ML DOSE 1 2020 207 complet ed MOD; [id number]; 1 [facility]
--- OUTSIDE RECORDS SUMMARY | 2024-06-25 09:30 | XMS_ITS ---
Author Organization [facility] Address [address] [place] [address] Care Team Providers Care Continuous Linter Drier Operator Name Role Phone Raul Blackmon MD Primary Care Provider Jovanni Duran Unavailable [phone] ALLERGIES No Known Allergies REASON FOR VISIT [...] Active confirmed Gastroesophagea l reflux disease (disorder) (276605107) VITAL SIGNS BMI 28.51 kg/m2 11/16/2023 Blood pressure systolic 000 mm Hg 11/16/19 24 Blood pressure diastolic 00 mm Hg 024 Height 68 in 11/16/2023 Temperature 97.5 degrees Fahrenheit 11/16/19 24 Weight 187 lb 8 oz lbs 11/16/2023 Encounters Encounter Location Date Provider Diagnosis [facility] [address] [place] [address] 11/16/2023 Jovanni Hatch History of adenomato us [...]
== END 2024-06-25 09:15 | disposition home or self-care (01) ==
LOC: HO.XRAY 09:14
PROVIDERS: PCP Internal Medicine; Visit Provider Internal Medicine
DX: M25.552 Pain in left hip (principal)
CPT/HCPCS: 72170

== ENCOUNTER → 2024-06-25 09:21 | Outpatient (BNV) | payer MEDICARE, SELFPAY | PROVIDERS: PCP Internal Medicine; Visit Provider Radiology Diagnostic Radiology | DX: M16.11 Unilateral primary osteoarthritis, right hip (principal); I70.202 Unspecified atherosclerosis of native arteries of extremities, left leg | CPT/HCPCS: 72170 ==

== ENCOUNTER 2024-07-19 09:32 | Outpatient (REF) | payer MEDICARE, SELFPAY ==
--- NOTE | ~2024-07-19 | XR_ITS ---
CLINICAL HISTORY: M25.579 - Pain in unspecified ankle and joints of unspecified foot 3 view right ankle Comparison: None Findings: No acute fractures or dislocations. No significant arthritic change or erosions. No ankle effusion. No radiopaque foreign body. There is regional arterial calcification. IMPRESSION: 1. No acute findings. This document has been electronically signed by: Marvin Pinzon MD on 07/19/2024 18:11:24
--- NOTE | ~2024-07-19 | XR_ITS ---
CLINICAL HISTORY: M25.579 - Pain in unspecified ankle and joints of unspecified foot 3 view left ankle Comparison: None Findings: No acute fractures. Ankle mortise intact. No significant loss of joint space, osteophytes, or erosions. No ankle effusion. No radiopaque foreign body. There is regional arterial calcification. IMPRESSION: 1. No acute findings. This document has been electronically signed by: Marvin Pinzon MD on 07/19/2024 18:10:41
--- OUTSIDE RECORDS SUMMARY | 2024-07-19 10:56 | XMS_ITS | Continuity of Care Document ---
Author Name [facility] Organization [facility] Care Team Providers Care 911 Operator Name Role Phone [facility] Unavailable Unavailable Immunizations Combined list of available immunizations from the Department of Defense and Veterans Affairs facilities. Immunization Series Date Given Administered By Site Reaction Lot Number [id number] Code Drug Necktie Centralizing Machine Operator Status Comments Source COVID-19 (MODERNA), MRNA, LNP-S, PF, 100 MCG/0.5 ML DOSE 2 2020 207 complet ed MOD; [id number]; [address] [facility] COVID-19 (MODERNA), MRNA, LNP-S, PF, 100 MCG/0.5 ML DOSE 1 2020 207 complet ed MOD; [id number]; [address] [facility]
--- OUTSIDE RECORDS SUMMARY | 2024-07-19 10:56 | XMS_ITS | Clinical Summary ---
Author Organization [facility] Address [facility] [place] [address] Care Team Providers Care Maintenance And Operations Supervisor Name Role Phone Raul Blackmon MD Primary Care Provider [phone] Medications Medication Sig Dispensed Refills Start Date End Date Status D3-red zfto-rwvwlmikuav-tynw 5,000-200 unit-mg Capsule 1 capsule. Active atorvastatin (Lipitor) 10 mg tablet every 24 hours. Active amLODIPine (Norvasc) 2.5 mg tablet Oral for 90 Active famotidine (Pepcid) 20 mg tablet Oral for 90 Active omeprazole (PriLOSEC) [address] capsule 1 Orally Once a day every morning for 90 days 11/16/2023 Active pravastatin (Pravachol) 20 mg tablet Oral for 90 Active aspirin EC 81 mg EC (DR) tablet Take 81 mg by mouth daily. Active Immunizations Name Administration Dates Next Due Covid-19 Monovalent (Moderna Spikevax) 12yrs+ ([id number]) 09/18/2020,08/21/2020 Tdap (Adacel, Boostrix) 03/07/2024,02/05/2017 Social History Tobacco Use Types Packs/Day Years Used Date Smoking Tobacco: Never Assessed Sex and Gender Information Value Date Recorded Sex Assigned at Not on file Gender Identity Not on file Sexual Orientation Not on file Last Filed Vital Signs Vital Sign Reading Time Taken Comments Blood Pressure 152/82 03/07/2024 11:58 AM EDT Pulse 73 03/07/2024 11:58 AM EDT Temperature 36.6 ??C (97.9 ??F) 03/07/2024 11:58 AM E DT Respiratory Rate - - Oxygen Saturation 98% 03/07/2024 11:58 AM EDT Inhaled Oxygen Concentration - - Weight - - Height - - Body Mass Index - - Plan of Treatment Health Maintenance Due Date Last Done Comments CT Colonography 1950 Colonoscopy 1950 Colorectal Cancer Screening 1950 FIT DNA 1950 FIT 1950 Sigmoidoscopy (10 year) with FIT yearly 1950 Sigmoidoscopy 1950 Hepatitis C Screening 02/20/1970 Pneumoccocal Vaccine: 50+ (1 of 1 - PCV) 02/20/2002 Zoster vaccine (1 of 2) 02/20/2002 Advance Directive 02/20/2007 Covid-19 Vaccine (3 - 2023- season) 02/18/202407/2020, 08/21/2020 Influenza (Flu) vaccine (1 o f 1 - Influenza standard series) 02/18/2024 Tetanus/Diphtheria/Pertussis Vaccines (3 - Td or Tdap) 03/07/2034 03/07/2024, 02/05/2017 Care Teams Maintenance And Operations Supervisor Relationship Specialty Start Date End Date Raul Blackmon MD [facility] [address] [address] PCP - General General Internal Medicine 03/07/24
== END 2024-07-19 09:33 | disposition home or self-care (01) ==
LOC: HO.HOSX 09:32
PROVIDERS: PCP Internal Medicine; Visit Provider Orthopaedic Surgery
DX: M25.572 Pain in left ankle and joints of left foot (principal); M25.571 Pain in right ankle and joints of right foot; M16.0 Bilateral primary osteoarthritis of hip; M19.072 Primary osteoarthritis, left ankle and foot
CPT/HCPCS: 73610; 99212

== ENCOUNTER → 2024-07-19 10:22 | Outpatient (BNV) | payer MEDICARE, SELFPAY | PROVIDERS: PCP Internal Medicine; Visit Provider Specialist | DX: M25.571 Pain in right ankle and joints of right foot (principal); M25.572 Pain in left ankle and joints of left foot | CPT/HCPCS: 73610 ==

== ENCOUNTER 2024-08-27 11:25 | Outpatient (AMB) | payer MEDICARE, SELFPAY ==
[2024-08-27 11:26] VITALS: BP 128/80; PULSE 70; RESP 16; TEMP 36.4; O2SAT 99; BMI 29.8
--- NOTE | 2024-08-27 11:26 | A.OFFPC_ITS ---
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 Required: No Accompanied by: Spouse Allergies No Known Allergies Allergy (Verified 08/27/24 15:15) Medication List - Last Reconciled 08/27/24 by Bennett Hager MD amlodipine 2.5 mg PO DAILY amlodipine 5 mg PO DAILY aspirin 81 mg PO DAILY 30 days atorvastatin 10 mg PO DAILY cholecalciferol (vitamin D3) 25 mcg PO 2XW famotidine 20 mg PO BID meloxicam 15 mg PO DAILY pravastatin 20 mg PO DAILY Tobacco use date assessed: 08/27/24 Fall risk assessment: 1 Fall in past year Last assessed Fall Risk: 08/27/24 Dental Screening Dental Screen Date: 08/27/24 Did you have a dental visit in the last 12 months?: Yes Did you have a dental problem in the last 6 months where you did not have access to dental care?: No PFSH Medical History Hyperlipidemia CVA (cerebral vascular accident) GERD (gastroesophageal reflux disease) Tinnitus COVID-19 Ischemic stroke High blood pressure Surgical History Hx of prostate biopsy H/O colonoscopy Hx of hand surgery Family History (Updated 08/27/24 @ 11:35 by CAROLINE Reyez) Father Heart attack Mother Alzheimer dementia Hypertension Social History Household Members: Spouse Housing: House Are you a primary youth career specialist to a significant other at home: No Do you presently have visiting nurse or other home services: No Alcohol intake: current Alcohol intake frequency: 0-2 drinks per day Alcohol type: beer Comment: counts correct Patient Tobacco Use Status: Former Tobacco user service: Yes Current occupational status: 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 1. Little interest or pleasure in doing things: not at all 2. Feeling down, depressed, or hopeless: not at all 3. Trouble falling or staying asleep, or sleeping too much: not at all 4. Feeling tired or having little energy: not at all 5. Poor appetite or overeating: not at all 6. Feeling bad about yourself - or that you are a failure or have let yourself or your family down: not at all 7. Trouble concentrating on things, such as reading the newspaper or watching television: not at all 8. Moving or speaking so slowly that other people could have noticed. Or the opposite - being so fidgety or restless that you have been moving around a lot more than usual: not at all 9. Thoughts that you would be better off or of hurting yourself in some way: not at all Total score: 0 Source: Developed by Drs. Jovanni Rodriguez, Maria C Salguero, Marquise Mahmood and colleagues, with an educational shimon from [employer]. Thrive Questionnaire Date Thrive assessed: 08/27/24 I am a: Patient What is your living situation today?: I have a steady place to live Within the past 12 months, did the food you bought not last and you didn't have the money to get more?: Never true Within the past 12 months, did you worry whether your food would run out before you got money to buy more?: Never true Do you have trouble paying for medicines?: No Do you have trouble getting transportation to medical appointments?: No Do you have trouble paying your heating and electricity bill?: No Do you have trouble taking care of your child, family member or friend?: No Do you have trouble with day-to-day activities such as bathing, preparing meals, shopping, managing finances, etc.?: No Are you currently unemployed and looking for a job?: No Are you interested in more education?: No THRIVE Score: 0 AUDIT C Alcohol Use Questionnaire (AUDIT-C) 1. How often do you have a drink containing alcohol?: 2-3 times a week 2. How many drinks containing alcohol do you have on a typical day when you are drinking?: 1 or 2 3. How often do you have six or more drinks on one occasion?: Never Total Score: 3 LINDSEY-7 AMB Questionnaire LINDSEY-7 Date LINDSEY - 7 assessed: 08/27/24 Feeling nervous, anxious, or on edge: 0 = Not at all Not being able to stop or control worryin = Not at all Worrying too much about different things: 0 = Not at all Trouble relaxin = Not at all Being so restless that it is hard to sit still: 0 = Not at all Becoming easily annoyed or irritable: 0 = Not at all Feeling afraid as if something awful might happen: 0 = Not at all Total LINDSEY-7 score (0-4 normal; 5-9 mild; 10-14 moderate; 15-21 severe): 0 Source: Developed by Drs. Jovanni Rodriguez, Maria C Salguero, Marquise Mahmood and colleagues, with an educational shimon from [employer]. Physical exam (Primary Care) Vital Signs: Last Vital Signs Temp 97.6 F 08/27/24 11:26 Pulse 70 08/27/24 11:26 Resp 16 08/27/24 11:26 BP 128/80 08/27/24 11:26 Pulse Ox 99 08/27/24 11:26 Oxygen Delivery Method Room Air 08/27/24 11:26 BMI result Body Mass Index 29.8 Tobacco/Smoking Status: Tobacco use Status Tobacco use date assessed 08/27/24 08/27/24 11:27 Patient Tobacco Use Status Former Tobacco user 08/27/24 11:27 PHQ-9: PHQ-9 Score PHQ-9: Total score 0 08/27/24 11:51 Thrive Assessment: Date of Thrive Assessment Date Thrive assessed 08/27/24 08/27/24 11:36 Coding Level of Care Code New Pt Level 4 (97869) Complex EM visit Add On G2211 Diagnoses Osteoarthritis of hips, bilateral M16.0 Arthritis of left ankle M19.072 Assessment & Plan Assessment & Plan (1) Osteoarthritis of hips, bilateral: Code(s): M16.0 - Bilateral primary osteoarthritis of hip Category: Medical Plan: On Meloxicam. Has already seen ortho (2) Arthritis of left ankle: Code(s): M19.072 - Primary osteoarthritis, left ankle and foot Category: Medical Plan: Sees the ortho MD Plan History of Present Illness The patient is a 74-year-old male presenting for a routine follow-up. His medical history includes osteoarthritis, particularly in the right hip and left ankle, which led to significant pain and difficulty walking about two to three weeks ago. Radiographic findings support the diagnosis, and the patient has been started on meloxicam with reported improvement. He also experiences gastroesophageal reflux disease managed with omeprazole 20 mg which controls his acid reflux symptoms effectively. The patient was referred for elevated PSA levels, with biopsy results from last summer ruling out prostate cancer. Continued monitoring of PSA levels is planned under the care of Dr. Villareal. Additionally, the patient takes amlodipine for hypertension and requires a prescription refill as the current supply has been depleted. 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 - Co-habits with spouse and adult son. - Drives independently, including night driving with occasional issues with bright lights. - Regularly engages in grocery shopping without aid, confirming adequate functional status. - Moderate alcohol consumption, attempts to reduce intake noted. - Occasional weight gain noted and attributed to high-caloric diet including ice cream. - Linch utilizing [place] services for hearing aids. Review of Systems - Musculoskeletal: Reports significant osteoarthritis pain in right hip and left ankle. Physical Exam General: Appearance normal, both eyes and all related structures Nutritional Appearance: Well nourished, slight weight gain of three pounds since last visit Orientation/consciousness: Patient oriented x3 Limitations: No limitations Head: Normal to inspection Neck: Normal visual inspection Chest: Normal palpation of entire chest wall Respiratory: Normal respiratory effort, no shortness of breath Neurology: Patient oriented x3 Results - Imaging: X-rays confirm osteoarthritis in right hip and left ankle. - Laboratory: Elevated PSA levels, biopsy negative for cancer. Plan The current management strategy includes meloxicam for osteoarthritis, continuation of omeprazole for gastroesophageal reflux disease, and regular monitoring of PSA levels to ensure no malignancy, with Dr. Villareal overseeing PSA evaluations. Amlodipine therapy is to be refilled soon, aiming to maintain blood pressure control. Follow-up in six months to reassess all ongoing conditions. Patient was informed and verbally consented to the use of an ambient scribe for clinic note documentation during this visit. Discussion Notes During our conversation, I advised the patient on continuing meloxicam for osteoarthritis pain management and maintaining the current regimen with omeprazole for acid reflux. We discussed the importance of regular PSA monitoring and reiterated that no malignancy was present. The patient expressed understanding and agreed with the outlined care plan. A follow-up was scheduled for six months, and the patient was informed to contact the office when refills for amlodipine are needed at least five days notice before depletion. Patient Instructions - Continue taking meloxicam and omeprazole as prescribed. - Monitor for any increase in joint pain or GERD symptoms. - Maintain regular PSA checks as planned with Dr. Villareal. - Contact our office one week before needing a refill for amlodipine. - Follow scheduled follow-up in six months. - Try to reduce ice cream and alcohol consumption for weight management.
--- OUTSIDE RECORDS SUMMARY | 2024-08-27 14:06 | XMS_ITS ---
Author Organization [facility] Address [address] [place] [address] Care Team Providers Care Senior Director Creative Services Name Role Phone Raul Blackmon MD Primary Care Provider Jovanni Duran [phone] REASON FOR VISIT acid reflux Encounters Encounter Location Date Provider Diagnosis [facility] [address] [place] [address] 04/05/2024 Jovanni Hatch Plan Of Treatment No Information Progress Notes * ELLIS MARKS MDOB:1949 (74 yo M)Acc No.[id number]:04/05/2024 Patient:?ELLIS MARKS :1950???Age:74 Y???Sex:Male Address[address] [facility] [facility] [place], [address] Subjective: * Chief Complaints: * ???Acid reflux * Medical History:? * Surgical History:? * Hospitalization/Major Diagno stic Procedure:? * Medications:? Objective: Assessment: Plan: * Treatment: * Procedure Codes:? * true * Date:? Generated for Printi saira/Facoreyg/eTransmitting on:?08/27/2024 02:06 PM EDT
--- OUTSIDE RECORDS SUMMARY | 2024-08-27 14:06 | XMS_ITS ---
Author Name [facility] [place] Address [address] [place] [id number] Support Name Relationship Address Phone ZAYRA MARKSA Emergency Contact [address] [place] [address] Insurance Providers: All historical and current Section Date Range: From patient's date of to the date document was created. This section includes the names of all active insurance providers for the patient. Insurance Provider Type of Coverage Plan Name Start of Policy Coverage End of Policy Coverage Group Number Member ID Insurance Provider's Telephone Number Policy Sosa's Name Patient's Relationship to Policy Sosa [facility] MEDIGAP PLAN C HAMPS HIRE COUNT Y TREMAYNE Feb 17, 2017 [id number] SELINAStephon UNDERWOODNARD PATIENT [facility] MEDICARE SUPPLEMEN LUCINDA MEDEX 2 Feb 17, 2017 [id number] [phone] MICHELLESL EONARD PATIENT MEDICARE (WNR) MEDICARE (M) PART A Feb 17, 2017 PART A [id number] PIEZARINASL EONARD PATIENT MEDICARE (WNR) MEDICARE (M) PART B Feb 17, 2017 PART B [id number] MICHELLES,L EONARD PATIENT MEDICARE (WNR) MEDICARE (M) PART A Feb 17, 2017 PART A [id number] PIEZARINAS,L EONARD PATIENT MEDICARE (WNR) MEDICARE (M) PART B Feb 17, 2017 PART B [id number] Stephon MARKS PATIENT Selected Encounter This section includes the information on record at [place] for the Encounter. Date/Time Encounter Type Encounter Description Reason Provider Source Jul 25, 2024 11:00 AM HEARING AID FITTING/CHECKIN G AUDIOLOGY ICD-10-CM H90.3 Sensorineural hearing loss, bilateral ELISHA BOCANEGRA Luzmaria Encounter Template Text not used by [facility] Assessments - Encounter Diagnoses This section includes the primary and secondary diagnoses documented for the Encounter. Date/Time Primary/Secondary Diagnosis Diagnosis Name Provider Source Jul 25, 2024 11:40 AM PRIMARY Sensorineural hearing loss, bilateral ELISHA BOCANEGRA E [place] [facility] [place] [facility] Jul 25, 2024 11:40 AM SECONDARY Tinnitus, bilateral ELISHA BOCANEGRA E [place] [facility] [place] [facility] Plan of Treatment: Future Appointments (+ 6 months) and Future Tests (+/- 45 days) The Plan of Treatment section includes future care activities for the patient from all [place] treatmentfacilities. This section includes future appointments and future orders which are active, pending or scheduled. Future Appointments This section includes appointments that were scheduled to occur 6 months from the date of the Encounter, up to a maximum of 20 appointments. The data comes from all [place] treatment facilities. Appointment Date/Time Appointment Type Appointme nt Facility Name Aug 22, 2024 09:00 AM [facility] [facility] Encounter Notes: All associated encounter notes This section contains the clinical notes associated to the Encounter. Date/Time Encounter Note(s) Provider Source Jul 25, 2024 08:51 AM AUDIOLOGY E & M NO TE: LOCAL TITLE: AUDIOLOGY CLINIC STANDARD TITLE: AUDIOLOGY E & M NOTE DATE OF NOTE: JUL 25, 2024@08:51 ENTRY DATE: JUL 25, 2024@08:51:24 AUTHOR: ELISHA BOCANEGRA EXP COSIGNER: URGENCY: STATUS: COMPLETED AUDIOLOGY CLINIC Has ADDENDA Lowes was seen 07-25-24 for a hearing re-evaluation. Hearing was last evaluated in 2018. He currently uses binaural Isatu RICs, issued in 2019. He reports benefit has been fair. He reports longstanding tinnitus and a significant vertigo episode last year that lasted about a month, required hospitalization, and PT. He states that hearing may have declined. Results are as follow: Otoscopy is WNL for both ears. Pure tone audiometric testing with headphones of the right ear revealed normal hearing at 250 and 500 Hz, sloping to a severe sensorineural hearing loss. Left ear testing revealed normal hearing at 250 and 500 Hz, sloping to a moderate sensorineural hearing loss. Asymmetry, worse right ear, was noted at 6000 and 8000 Hz. Word recognition scores were good with 92% correct for each ear for recorded speech presented at 80 dB HL (masked). As tympanograms were obtained bilaterally (reduced eardrum compliance). Results obtained today reflect threshold decline for both ears in comparison to those from 2018. Wax guards and domes were replaced on both hearing aids. The sound check was positive. The joaquin cover will not stay in place on one of them- may send both in for factory overhaul at fitting. Gain in the 1000 Hz area was increased on both hearing aids. Lowes was counseled on today's test results. Given the age and technology of 's current amplification, he is considered eligible for new hearing aids. Binaural rechargeable RICs with domes are recommended and agrees. He states he does not have a pacemaker, measured a 3, and chose beige. Fitting was scheduled for 08-22-24 at 9am, [facility] placed. /parth/ Federico GRAY [facility]-A STAFF BACKHOE OPERATOR Signed: 07/25/2024 11:48 Receipt Acknowledged By: 07/25/2024 11:58 /parth/ [facility] 07/25/2024 ADDENDUM STATUS: COMPLETED Suicide Screen: C-SSRS Screening [place]-Suicide Severity Rating Scale (C-SSRS Screener) 1. Over the past month, have you wished you were or wished you could go to sleep and not wake up? No 2. Over the past month, have you had any actual thoughts of killing yourself? No 3. Over the past month, have you been thinking about how you might do this? Response not required due to responses to other questions. 4. Over the past month, have you had these thoughts and had some intention of acting on them? Response not required due to responses to other questions. 5. Over the past month, have you started to work out or worked out the details of how to kill yourself? Response not required due to responses to other questions. 6. If yes, at any time in the past month did you intend to carry out this plan? Response not required due to responses to other questions. 7. In your lifetime, have you ever done anything, started to do anything, or prepared to do anything to end your life (for example, collected pills, obtained a gun, gave away valuables, went to the roof but didn't jump)? No 8. If YES, was this within the past 3 months? Response not required due to responses to other questions. /parth/ Federico GRAY, [facility]-A STAFF BACKHOE OPERATOR Signed: 07/25/2024 12:54 08/01/2024 ADDENDUM STATUS: COMPLETED Hearing aids received and certified, upcoming appointment scheduled on 08/22/2024. /parth/ BRAYDON HICKS [facility] Signed: 08/01/2024 08:08 ELISHA BOCANEGRA [facility]
--- OUTSIDE RECORDS SUMMARY | 2024-08-27 14:07 | XMS_ITS | Patient Health Record ---
Author Organization [facility] Address [address] [place] [address] Care Team Providers Care Strawhat Inspector And Packer Name Role Phone Raul Blackmon MD Primary Care Provider Jovanni Duran Unavailable [phone] Allergies No Known Allergies Results Component Value Reference Range Notes Pathology Reviewed date:04/08/2024 12:19:07 AM Interpretation: Performing Lab:[facility], [address] [place] [id number] Notes/Report: Name: Omar Hardy Age/Sex: 74/M : 1950 Unit#: [id number] Attend Dr: Jovanni Hatch MD Re03/11/24 Status : [facility] Location: [facility] Disch: SPEC : [id number] RECD : 03/11/24 STATUS: KASH HUDSON NUM: [id number] WILIAM: 03/11/24 [facility] DR: Jovanni Hatch MD ENTERED: 03/11/24 SP TYPE: Surgical OTHR DR: Raul Blackmon MD ORDERED: HE Stain/9, Gross Micro L4/3 Diagnosis A. Colon, polyp at 6 0 cm, polypectomy: Tubular adenoma; negative for high-grade dysplasia. B. Rectum, polypecto my: Hyperplastic polyp. C. Gastroesophageal junction at 39 cm, biopsy: Squamocolumnar junctional mucosa with moderate chronic inf lammation; negative for intestinal metaplasia and dysplasia. Clinical History Pre-Op Dx: Screening and GERD Post-Op Dx: Reflux, hiatal hernia, colon polyps, diverticulosis and hemorrhoids Microscopic Description Microscopic sections reviewed. The special stain for AB/PAS is negative for intestinal metaplasia part C. Material Received A. Polyp at 60 cm B. Rectal polyp C. EG junction bx 39 cm Gross Description Received in three parts. Part A: Received in formalin labeled ?polyp at 60 cm? is a 0.3 cm galicia irregular tissue fragment, submitted in toto in a cassette labeled A. Part B: Received in formalin labeled ?rectal polyp? is a 0.2 cm galicia-pink irregular tissue fragment, submitted in toto in a cassette labeled B. Part C: Received in formalin labeled ?EG junction bx at 39 cm? are 5 galicia-pink irregular tissue fragments ran ging from 0.15-0.3 cm, submitted in toto in a cassette labeled C. CEDS Special stains order ed and performed: AB/PAS on C. CONTINUED ON NEXT PAGE Name: Omar Hardy kristen Wong Age/Sex: 74/M : 1950 Unit#: [id number] Attend Dr: Jovanni Hatch MD Re03/11/24 [place] : [facility] [place]: [place] Disch: SPEC : [id number] RECD : 03/11/24 STATUS: KASH HUDSON NUM: [id number] WILIAM: 03/11/[address] [facility] [address]: Jovanni Hatch MD ENTERED: 03/11/24- SP TYPE: Surgical OTHR DR: Raul Blackmon MD ORDERED: LAINA Stain/9, Vera [place] L4/3 Copies To: Raul Blackmon MD [address] [place] [address] Jovanni Hatch MD [facility] [address] [place] [address] Signed (si gnmarlene on file) Yennifer Burr MD 03/12/24 1106 END OF REPORT Reason For Referral No Information Medications Medication SIG (Take, Route, Frequency, Duration) Notes [...] 20 MG Oral for 90 A ctive Immunizations Vaccine Route Administration Date Status Comme nts Influenza Unknown 04/25/2018 Refused Influenza Unknown 11/16/2023 Refused Social History Alcohol Screen Question Answer Notes Did you [...] Never (0 point) Points 4 Interpretation Positive Section Notes: Nonsmoker; occ. beer Nonsmoker; approx 4 beers QD Nonsmoker; approx 4 beers QD Problems Problem Type SNOMED Code ICD Code Onset Dates Problem Status W/U Status Risk Notes Problem 568336506 Encounter for screening for malignant neoplasm of colon (Z12.11) Active confirmed Problem 006392084 History of adenomatous polyp of colon (Z86.010) Active confirmed Problem Diverticular disease of colon (017387138) Diverticulosis of large intestine without perforation or abscess without bleeding (K57.30) Active confirmed Problem Gastroesophageal reflux disease (880922107) Gastroesophageal reflux disease (K21.9) Active confirmed Problem 31780277 Hypertension, unspecified type (I10) Active confirmed Problem Gastroesophageal reflux disease (disorder) (489935782) Chronic GERD (K21.9) Active confirmed Vital Signs Temperature 97.5 degrees Fahrenheit 11/16/2023 Blood pressure diastolic 00 mm Hg 11/16/2023 Height 68 in 11/16/2023 Blood pressure systolic 000 mm Hg 11/16/2023 Weight 187 lb 8 oz lbs 11/16/2023 BMI 28.51 kg/m2 11/16/2023 Encounters Encounter Location Date Provider Diagnosis [facility] [place] [address] [place] [phone] 03/11/2024 Jovanni Hatch Colon cancer screeni ng Z12.11 ; Colon polyps K63.5 ; Rectal polyp K62.1 ; Diverticulosis of large intestine without perforation or abscess without bleeding K57.30 ; Other hemorrhoids K64.8 ; Gastroesophageal reflux disease K21.9 and Hiatal hernia K44.9 [facility] [address] [place] [address] 11/16/2023 Jovanni Hatch History of adenomato us polyp of colon Z86.010 ; Chronic GERD K21.9 and Encounter for screening for malignant neoplasm of colon Z12.11 [facility] [address] [place] [address] 04/05/2024 Jovanni Hatch Assessments Encounter Date Diagnosis (ICD Code) Assessment Notes Treatment Notes Treatment Clinical Notes Section Notes 03/11/2024 Colon cancer screening (ICD-10 - Z12.11) 03/11/2024 Colon polyps (ICD-10 - K63.5) 11/16/2023 History of adenomatous polyp of colon (ICD-10 - Z86.010) Overall, Ellis appears well. I did recommend a followup colonoscopy for further screening given his personal history of tubular adenomas and his last colonoscopy being over 5 years ago. We did review the rationale for that regard to colorectal cancer prevention. He was advised to stop aspirin for 2 days before the procedure. I also recommended an upper endoscopy on the same date for evaluation of his chronic reflux an upper GI complaints. We did review that it would be important to rule out anything such as esophagitis, Kate's esophagus, significant hiatal hernia, and/or any type of esophageal ring or stricture that may need dilation. The meantime I have recommended we try him on omeprazole 20 mg daily and stop the famotidine to see if that gives him any better relief. Full consent was obtained from him for both procedures, including risks of bleeding and perforation. The procedures will be done with monitored anesthesia care. Ellis was comfortable with this plan. Thank you again for allowing me to participate in Ellis's care. I shall continue to keep you advised of his progress. 11/16/2023 Chronic GERD (ICD-10 - K21.9) When you start the new medicine Omeprazole for the reflux you should stop the Famotidine(Pep marta). Overall, Ellis appears well. I did recommend a followup colonoscopy for further screening given his personal history of tubular adenomas and his last colonoscopy being over 5 years ago. We did review the rationale for that regard to colorectal cancer prevention. He was advised to stop aspirin for 2 days before the procedure. I also recommended an upper endoscopy on the same date for evaluation of his chronic reflux an upper GI complaints. We did review that it would be important to rule out anything such as esophagitis, Kate's esophagus, significant hiatal hernia, and/or any type of esophageal ring or stricture that may need dilation. The meantime I have recommended we try him on omeprazole 20 mg daily and stop the famotidine to see if that gives him any better relief. Full consent was obtained from him for both procedures, including risks of bleeding and perforation. The procedures will be done with monitored anesthesia care. Ellis was comfortable with this plan. Thank you again for allowing me to participate in Ellis's care. I shall continue to keep you advised of his progress. 03/11/2024 Rectal polyp (ICD-10 - K62.1) 11/16/2023 Encounter for screening for malignant neoplasm of colon (ICD-10 - Z12.11) Do not take the aspirin for two days before the colonoscopy Overall, Ellis appears well. I did recommend a followup colonoscopy for further screening given his personal history of tubular adenomas and his last colonoscopy being over 5 years ago. We did review the rationale for that regard to colorectal cancer prevention. He was advised to stop aspirin for 2 days before the procedure. I also recommended an upper endoscopy on the same date for evaluation of his chronic reflux an upper GI complaints. We did review that it would be important to rule out anything such as esophagitis, Kate's esophagus, significant hiatal hernia, and/or any type of esophageal ring or stricture that may need dilation. The meantime I have recommended we try him on omeprazole 20 mg daily and stop the famotidine to see if that gives him any better relief. Full consent was obtained from him for both procedures, including risks of bleeding and perforation. The procedures will be done with monitored anesthesia care. Ellis was comfortable with this plan. Thank you again for allowing me to participate in Ellis's care. I shall continue to keep you advised of his progress. 03/11/2024 Diverticulosis of large intestine without perforation or abscess without bleeding (ICD-10 - K57.30) 03/11/2024 Other hemorrhoids (ICD-10 - K64.8) 03/11/2024 Gastroesophageal reflux disease (ICD-10 - K21.9) 03/11/2024 Hiatal hernia (ICD-10 - K44.9) Plan Of Treatment Future Test Test Name Order Date COLONOSCOPY 10/14/2011 COLONOSCOPY 04/25/2018 UPPER GI ENDOSCOPY 11/16/2023 COLONOSCOPY 11/16/2023 Insurance Providers Payer Name Payer Address Payer Phone Subscriber Number Group Number Insured Name Patient Relationship to Insured Coverage Start Date Coverage End Date MEDICARE OF [place] [address] [place] [id number] ELLIS HARDY Self - patient is the insured MEDEX ATTN CLAIMS [address] [place] [address] [id number] ELLIS HARDY Self - patient is the insured Medical (General) History Medical History History ICD Code Denies MS,DM,Lung disease,renal disease Screening colonoscopy 10/2011 ---1 tubular adenoma removed, mild diverticulosis, small internal hemorrhoids Hyperlipidemia Benign prostate biopsy 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
--- OUTSIDE RECORDS SUMMARY | 2024-08-27 14:07 | XMS_ITS | Continuity of Care Document ---
Author Name [facility] Organization [facility] Care Team Providers Care Registered Nurse Name Role Phone [facility] Unavailable Unavailable Problems Combined list of problems from Department of Defense and Veterans Affairs facilities. It does not include entries that were removed or entered in error. Problem Status Onset Date Problem Type Date of Resolution Comments Source Diagnosis: ICD-10-CM Z46.1 Encounter for fitting and adjustment of hearing aid Active Diagnosis [facility] Diagnosis: ICD-10-CM H90.3 Sensorineural hearing loss, bilateral Active Diagnosis [facility] Immunizations Combined list of available immunizations from the Department of Defense and Veterans Affairs facilities. Immunization Series Date Given Administered By Site Reaction Lot Number CVX Code Drug Shrimp Peeling Machine Tender Status Comments Source COVID-19 (MODERNA), MRNA, LNP-S, PF, 100 MCG/0.5 ML DOSE 2 2020 207 complet ed MOD; [id number]; 1 [facility] COVID-19 (MODERNA), MRNA, LNP-S, PF, 100 MCG/0.5 ML DOSE 1 2020 207 complet ed MOD; [id number]; 1 [facility] Encounters Combined list of: 1) Encounters from Department of Veterans Affairs facilities going backup to the last 18 months, not all VA inpatient encounters are included; 2) Encounters from the Department of Defense facilities going backup to 280 months. Location Location Details Encounter Type Encounter Number Reason For Visit Attending Provider ADM Date DC Date Status Disposition Source [facility] HEARING AID FITTING/CH ECKING 74204-3.63 [id number] Diagnos is: ICD-10- CM H90.3 Sensori neural hearing loss, [place] 07/25 [facility] CONFORMITY EVALUATION 81776-4.63 [id number] Diagnos is: ICD-10- CM Z46.1 Encount er for fitting and adjustm ent of hearing aid Kain BOCANEGRA 08/22 [place] [facility] [facility]
--- OUTSIDE RECORDS SUMMARY | 2024-08-27 14:07 | XMS_ITS ---
Author Organization [facility] Address [address] [place] [address] Care Team Providers Care Client Delivery Specialist Name Role Phone Raul Blackmon MD Primary Care Provider Jovanni Duran Unavailable [phone] REASON FOR VISIT screening,hx polyps,gerd Problems Problem Type SNOMED Code ICD Code Onset Dates Problem Status W/U Status Risk Notes Problem Diverticular disease of colon (935542924) Diverticulosis of large intestine without perforation or abscess without bleeding (K57.30) Active confirmed Problem Gastroesophageal reflux disease (686822910) Gastroesophageal reflux disease (K21.9) Active confirmed Encounters Encounter Location Date Provider Diagnosis [facility] Out[place] [address] [place] [phone] 03/11/2024 Jovanni Hatch Colon cancer scree hayes [...] * ELLIS MARKS MDOB:1949 (74 yo M)Acc No.[id number]:03/11/2024 EGD and COL/MAC Patient:?ELLIS MARKS Provider:?Jovanni Hatch MD :1950???Age:74 Y???Sex:Male Anatoliy e:03/11/2024 Address:[address] [place] [address] [address] [id number] Pcp:Raul Blackmon MD Subjective: * Chief Complaints: * ???1. Screening,hx polyps,ge rd. * Medical History:? Objective: * Vitals:? Assessment: * Assessment: 1.?Colon cancer screening - Z12.11 (Primary)???2.?Colon polyps - K63.5???3.?Rectal polyp - K62.1???4.?Diverticulosis of large intestine without perforation or abscess without bleeding - K57.30???5.?Other hemorrhoids - K64.8???6.?Gastroesophageal reflux disease - K21.9???7.?Hiatal hernia - K44.9??? Plan: * Treatment: * Procedure Codes:?43659 COLON OSCOPY AND BIOPSY, Modifiers: PT , 0529F INTRVL 3+YRS PTS CLNSCP DOCD, 0528F RCMND FLW-UP 10 YRS DOCD, Modifiers: 1P , 88704 UPPER GI ENDOSCOPY, BIOPSY * * The named appointment provid er may or may not be the originator of this progress note, and it is not deemed complete until electronically signed by the appointment provider. Sign off status: Pending * Provider:?Jovanni Hatch MD Date:? 024 Generated for Becka chávez/Maile/eTransmitting on:?08/27/2024 02:06 PM EDT
--- OUTSIDE RECORDS SUMMARY | 2024-08-27 14:07 | XMS_ITS | Encounter Summary ---
Author Name [facility] [place] Organization [facility] [place] Address [address] [place] [address] Support Name Relationship Address Phone LAMIN MARKS Emergency Contact [address] [place] [address] Insurance Providers: All historical and current Section Date Range: From patient's date of to the date document was created. This section includes the names of all active insurance providers for the patient. Insurance Provider Type of Coverage Plan Name Start of Policy Coverage End of Policy Coverage Group Number Member ID Insurance Provider's Telephone Number Policy Sosa's Name Patient's Relationship to Policy Sosa [facility] MEDIGAP PLAN C HAMPS HIRE COUNT Y TREMAYNE Feb 17, 2017 [id number] SELINAL EONARD PATIENT [facility] MEDICARE SUPPLEMEN LUCINDA MEDEX 2 Feb 17, 2017 [id number] [phone] PIETRAS,L EONARD PATIENT MEDICARE (WNR) MEDICARE (M) PART A Feb 17, 2017 PART A [id number] PIETRAS,L EONARD PATIENT MEDICARE (WNR) MEDICARE (M) PART B Feb 17, 2017 PART B [id number] PIETRAS,L EONARD PATIENT MEDICARE (WNR) MEDICARE (M) PART A Feb 17, 2017 PART A [id number] PIETRAS,L EONARD PATIENT MEDICARE (WNR) MEDICARE (M) PART B Feb 17, 2017 PART B [id number] [phone] [id number] PIETRAS,L EONARD PATIENT Selected Encounter This section includes the information on record at [place] for the Encounter. Date/Time Encounter Type Encounter Description Reason Provider Source Aug 22, 2024 09:00 AM CONFORMITY EVALUATION AUDIOLOGY ICD-10-CM Z46.1 Encounter for fitting and adjustment of hearing aid ELISHA BOCANEGRA Luzmaria Encounter Template Text not used by [place] Assessments - Encounter Diagnoses This section includes the primary and secondary diagnoses documented for the Encounter. Date/Time Primary/Secondary Diagnosis Diagnosis Name Provider Source Aug 22, 2024 09:36 AM PRIMARY Encounter for fitting and adjustment of hearing aid ELISHA BOCANEGRA [place] [facility] [place] [facility] Aug 22, 2024 09:36 AM SECONDARY Sensorineural hearing loss, bilateral ELISHA BOCANEGRA [place] [facility] [place] [facility] Encounter Notes: All associated encounter notes This section contains the clinical notes associated to the Encounter. Date/Time Encounter Note(s) Provider Source Aug 22, 2024 07:53 AM AUDIOLOGY E & M NO TE: [facility] TITLE: AUDIOLOGY CLINIC STANDARD TITLE: AUDIOLOGY E & M NOTE DATE OF NOTE: AUG 22, 2024@07:53 ENTRY DATE: AUG 22, 2024@07:53:05 AUTHOR: ELISHA BOCNAEGRA EXP COSIGNER: URGENCY: STATUS: COMPLETED Diagnosis: bilateral sensorineural hearing loss Hearing Aid Fitting: SUBJECTIVE (S): The was seen for hearing aid fitting and issuance. S/He had previously been evaluated and found to exhibit significant hearing loss for which amplification was recommended. How does the patient/client best learn? verbal instruction, demonstration Does the patient/client have any cultural and sikhism beliefs, emotional barriers, physical or cognitive limitations, and communication barriers which may impact his/her ability to learn? no Desire and motivation to learn? Good OBJECTIVE (O): Physical fit of earmolds/receivers and domes/hearing aids was good. [place] verified comfort. Verification of an appropriate acoustic response was obtained using Real Ear measurements (speech mapping) and NAL- NL2 targets. The reported good subjective benefit as well. Feedback manager materials management was run. Hearing aids were found to be meeting targets adequately and MPO was not exceeding estimated UCL. Settings stored in [place]. ASSESSMENT (A): The following device(s) was/were issued: Make: Oticon Model: Intent1 miniRITE R Serial Numbers: [id number] Battery size: RECHARGEABLE Trial Period ends: 25 Domes/wax guards, etc.: 6mm double vent domes/prowax minifit Earmold Information: n/a Internal Medicine Hospitalist size/power: 3/85 detect Program Settings(VC,Programs, Buttons):right raise/left [...] and reports confidence/understanding in all items reviewed. [place] was given written reference materials today. The [place] was informed of and agreed to [place] policy on hearing aid issuance: Users are responsible for the maintenance and security of their devices. Determination of need to replace a hearing aid is made by the [place] finishing powder press operator. Hearing aids will not be replaced in [...] RE Not Applicable NA /parth/ Federico GRAY, [facility]-A STAFF DRILL SHARPENER OPERATOR Signed: 08/22/2024 09:41 [facility]
--- OUTSIDE RECORDS SUMMARY | 2024-08-27 14:07 | XMS_ITS ---
Author Organization [facility] Address [address] [place] [address] Care Team Providers Care Paint Dipper Name Role Phone Raul Blackmon MD Primary Care Provider Jovanni Durna Unavailable [phone] Allergies No Known Allergies REASON FOR VISIT Patient presents today for a screening colonoscopy Medications Medication SIG (Take, Route, Frequency, Duration) [...] Besylate 2.5 MG Oral for 90 Active Immunizations Vaccine Route Administration Date Status Comme nts Influenza Unknown 11/16/2023 Refused Social History Alcohol [...] Points 4 Interpretation Positive Section Notes: Nonsmoker; approx 4 beers QD Problems Problem Type SNOMED Code ICD Code Onset Dates Problem Status W/U Status Risk Notes Problem Gastroesophageal reflux disease (disorder) (975149497) Chronic GERD (K21.9) Active confirmed Vital Signs Temperature 97.5 degrees Fahrenheit 11/16/19 24 Blood pressure systolic 000 mm Hg 11/16/19 24 Blood pressure diastolic 00 mm Hg 024 Height 68 in 11/16/2023 Weight 187 lb 8 oz lbs 11/16/2023 BMI 28.51 kg/m2 11/16/2023 Encounters Encounter Location Date Provider Diagnosis [facility] [address] [place] [address] 11/16/2023 Jovanni Hatch History of adenomato us polyp of colon Z86.010 ; Chronic GERD K21.9 and Encounter for screening for malignant neoplasm of colon Z12.11 Assessments Encounter Date Diagnosis (ICD Code) Assessment Notes Treatment Notes Treatment Clinical Notes Section Notes 11/16/2023 History of adenomatous polyp of [...] for the reflux you should stop the Famotidine([facility] id). Overall, Ellis appears well. I did recommend [...] keep you advised of his progress. 11/16/2023 Encounter for screening for malignant neoplasm [...] to keep you advised of his progress. Plan Of Treatment Medication Medication Name Sig Start Date Stop [...] Follow Up: prn, Reason: Progress Notes * ARTHURLORENZO MANZOBRANDY ESTEVESOB:1949 (73 yo M)Acc No.[id number]:11/16/2023 Progress Notes Patient:?ELLIS MARKS Provider:?Jovanni Hatch MD :1950???Age:73 Y???Sex:Male Anatoliy e:11/16/2023 Address: [address], [place], [facility] Pcp:Raul Blackmon MD Subjective: * Chief Complaints: * ???Patient presents today fo r a screening colonoscopy * HPI: ???incontinence:? I saw Ellis in consultation today in regard to further evaluation of his personal history of tubular adenomas of the colon, need for colorectal cancer screening, and his gastroesophageal reflux. ?I last saw Ellis in June of 2018, at which time he underwent a followup screening colonoscopy with removal of a tubular adenoma. He currently feels well. His bowel movements have been regular and without any signs of bleeding. He denies any abdominal pain, jaundice, nor unintentional weight loss. ?He does describe that he has been having a fairly long-standing history of reflux and regurgitation with associated coughing, particularly with meals. He describes a barium swallow in the past that showed reflux but was otherwise nonrevealing as far as he knows. He has been using famotidine twice a day but without significant improvement. He denies any dysphagia to food, early satiety, nausea, nor vomiting. * ROS:?General/Constitutional:?Change in appetite?denies.?Chills?denies.?Fatigue?denies.?Ophthalmologic:?Comments?all negative.?ENT:?Comments?all negative.?Respiratory:?hemoptysis?denies.?Cough?denies.?Cardiovascular:?Chest pain?denies.?Orthopnea?denies.?Gastrointestinal:?Comments?See HPI for details.?Genitourinary:?Hematuria?denies.?Dysuria?denies.?Musculoskeletal:?Painful joints?denies.?Weakness?denies.?Skin:?Itching?denies.?Rash?denies.?Neurologic:?Headache?denies.?Seizures?denies.?Psychiatric:?Comments?all negative.? * Medical History:? * Surgical History:?Left hand * Hospitalization/Major Diagno stic Procedure:?No Hospitalization History. * Family History:?Father: dece ased, diagnosed with Heart disease.?Mother: , diagnosed with HTN (hypertension).? No colorectal cancer. No family history of liver cancer. * Social History:?Tobacco Use:?Tobacco Use/Smoking?Are you a: former smoker , How long has it been since you last smoked?: > 10 years.?Drugs/Alcohol:?Alcohol Screen?Did you have a drink containing alcohol in the past year??Yes,?How often did you have a drink containing alcohol in the past year??4 or more times a week (4 points),?How many drinks did you have on a typical day when you were drinking in the past year??1 or 2 drinks (0 point),?How often did you have 6 or more drinks on one occasion in the past year??Never (0 point),?Points?4,?Interpretation?Positive.?Miscellaneous:?Marital status: . 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 ???Nonsmoker; approx 4 beers QD. * Medications:?TakingVitamin D 5000 cap 1 capsule Orally Once a day twice a weekAtorvastatin Calcium 10 MG Tablet 1 tablet Orally Once a dayPravastatin Sodium 20 MG Tablet Oral amLODIPine Besylate 2.5 MG Tablet Oral Famotidine 20 MG Tablet Oral Medication List reviewed and reconciled with the patientTaking Vitamin D 5000 cap 1 capsule Orally Once a day twice a weekTaking Atorvastatin Calcium 10 MG Tablet 1 tablet Orally Once a dayTaking Pravastatin Sodium 20 MG Tablet Oral Taking amLODIPine Besylate 2.5 MG Tablet Oral Taking Famotidine 20 MG Tablet Oral Medication List reviewed and reconciled with the patient * Allergies:?N.K.D.A.yes[Aller gies Verified] Objective: * Vitals:?Wt: 187 lb 8 oz, Ht: 68 in, BMI:28.51 Index, BP: 000/00 mm Hg, Temp: 97.5. * Examination: ???General Examination: ?GENERAL APPEARANCE:?pleasant, well nourished, well developed, in no acute distress.?EYES:?sclera non-icteric.?ORAL CAVITY:?mucosa moist.?NECK/THYROID:?no cervical lymphadenopathy, neck supple.?SKIN:?nonjaundiced, no spider angiomata.?HEART:?S1, S2 normal.?LUNGS:?clear to auscultation bilaterally.?ABDOMEN:?normal bowel sounds, no guarding or rigidity, no guarding or rigidity, no masses palpable, soft, nontender, nondistended.?EXTREMITIES:?no edema.?NEUROLOGIC:?alert and oriented.? Assessment: * Assessment: 1.?Chronic GERD - K21.9 (Babita santos)?2.?History of adenomatous polyp of colon - Z86.010?3.?Encounter for screening for malignant neoplasm of colon - Z12.11? Overall, Ellis appears wel l. I did recommend a followup colonoscopy for [...] to keep you advised of his progress. Plan: * Treatment: Notes: When you start the new medicine Omeprazole for the reflux you should stop the Famotidine(Pepcid).??2.?History of adenomatous polyp of colon?Procedure: COLONOSCOPY (Ordered for 11/16/2023)* with MACsched for 03/11 at 7: 30 ammiralax 3.?Encounter for screening for malignant neoplasm of colon?Procedure: COLONOSCOPY (Ordered for 11/16/2023)* with MACsched for 03/11 at 7: 30 ammiralax Notes: Do not take the aspirin for two days before the colonoscopy?? * Immunizations:? Influenza (Not administered - Refused: Patient decision) * Procedure Codes:?3017F COLOR ECTAL CA SCREEN DOC SAE3161B TOBACCO NON-COASR6412 BP SCR NOT PRFRM REC REASON NOS * Preventive Medicine:? ??Counseling:?Care goal follow-up plan:?Above Normal BMI Follow-up?Giving encouragement to exercise,?BMI management provided?Yes.? * Follow Up:?prn * * Sign off status: Completed true * Provider:?Jovanni Hatch MD Date:? 024 Generated for Becka chávez/Maile/eTransmitting on:?08/27/2024 02:07 PM EDT History and Physical Notes * HPI (History of Present Illness) Category Sub-Category Detail Notes Category Not es incontinence I saw Ellis in consultation today in regard to further evaluation of his personal history of tubular adenomas of the colon, need for colorectal cancer screening, and his gastroesophageal reflux. I last saw Ellis in June of 2018, at which time he underwent a followup screening colonoscopy with removal of a tubular adenoma. He currently feels well. His bowel movements have been regular and without any signs of bleeding. He denies any abdominal pain, jaundice, nor unintentional weight loss. He does describe that he has been having a fairly long-standing history of reflux and regurgitation with associated coughing, particularly with meals. He describes a barium swallow in the past that showed reflux but was otherwise nonrevealing as far as he knows. He has been using famotidine twice a day but without significant improvement. He denies any dysphagia to food, early satiety, nausea, nor vomiting. Examination Category Sub-Category Detail Notes Category Not es General Examination GENERAL APPEARANCE: pleasant , well [...]
== END 2024-08-27 11:53 | disposition home or self-care (01) ==
LOC: HO.HMCSH 11:25
PROVIDERS: PCP Internal Medicine; Visit Provider Internal Medicine
DX: M16.0 Bilateral primary osteoarthritis of hip (principal); M19.072 Primary osteoarthritis, left ankle and foot

== ENCOUNTER → 2024-08-27 11:25 | Outpatient (BNVA) | payer MEDICARE, SELFPAY | PROVIDERS: PCP Internal Medicine; Visit Provider Internal Medicine | DX: M16.0 Bilateral primary osteoarthritis of hip (principal); M19.072 Primary osteoarthritis, left ankle and foot | CPT/HCPCS: 99202 ==

== ENCOUNTER 2025-01-20 08:09 | Outpatient (REF) | payer MEDICARE, SELFPAY ==
--- OUTSIDE RECORDS SUMMARY | 2024-03-11 03:30 | XMS_ITS ---
Author Organization [facility] Address [address] [place] [address] Care Team Providers Care Clinical Operations Manager Name Role Phone Lorri (RETIRED) Raul ESTEVES Primary Care Provide Jovanni Castañeda Unavailable [phone] REASON FOR VISIT screening,hx polyps,gerd Problems Problem Type SNOMED Code ICD Code Onset Dates Problem Status W/U Status Risk Notes Problem Diverticular disease of colon (465334139) Diverticulosis of large intestine without perforation or abscess without bleeding (K57.30) Active confirmed Problem Gastroesophageal reflux disease (K21.9) Active confirmed Encounters Encounter Location Date Provider Diagnosis [facility] [place] [address] [place] [id number] 03/11/2024 Jovanni Hatch Colon cancer scree hayes [...] Information Progress Notes * ELLIS MARKS MDOB:1949 (74 yo M)Acc No.[id number]:03/11/2024 EGD and COL/MAC Patient: ELLIS ANAND Provider: Fidencio Hatch MD :1950 A ge:74 Y S ex:Male Date:03/11/2024 Address:[address] [place], [place] [id number] Pcp:Raul Blackmon (RETIRED )MD Subjective: * Chief [...] FLW-UP 10 YRS DOCD, Modifiers: 1P , 30054 UPPER GI ENDOSCOPY, BIOPSY * * The named appointment provid er may or may not be the originator of this progress note, and it is not deemed complete until electronically signed by the appointment provider. Sign off status: Pending * Provider: Fidencio Hatch MD Date: 0 03/11/2024 Generated for Becka chávez/Maile/Chalinoitting on: 0 01/20/2025 08:14 AM EDT
--- OUTSIDE RECORDS SUMMARY | 2024-08-22 05:00 | XMS_ITS | Encounter Summary ---
Author Name [facility] Organization [facility] [place] Address [address] [place] [id number] Support Name Relationship Address Phone LAMIN MARKS Emergency Contact [address] [place] [address] Insurance Providers: All historical and current Section Date Range: From patient's date of to the date document was created. This section includes the names of all active insurance providers for the patient. Insurance Provider Type of Coverage Plan Name Start of Policy Coverage End of Policy Coverage Group Number Member ID Insurance Provider's Telephone Number Policy Sosa's Name Patient's Relationship to Policy Sosa [facility] MEDIGAP PLAN C HAMPS HIRE COUNT Y TREMAYNE Feb 17, 2017 [id number] MICHELLEYanivStephonNARD PATIENT [facility] MEDICARE SUPPLEMEN LUCINDA MEDEX 2 Feb 17, 2017 [id number] [phone] Stephon MARKS EONARD PATIENT MEDICARE (WNR) MEDICARE (M) PART A Feb 17, 2017 PART A [id number] PIETRASL EONARD PATIENT MEDICARE (WNR) MEDICARE (M) PART B Feb 17, 2017 PART B [id number] MICHELLESL EONARD PATIENT MEDICARE (WNR) MEDICARE (M) PART A Feb 17, 2017 PART A [id number] [phone] [id number] MICHELLESStephon EONARD PATIENT MEDICARE (WNR) MEDICARE (M) PART B Feb 17, 2017 PART B [id number] PIETRAS,L EONARD PATIENT Selected Encounter This section includes the information on record at [place] for the Encounter. Date/Time Encounter Type Encounter Description Reason Provider Source Aug 22, 2024 09:00 AM HEARING SERVICE AUDIOLOGY ICD-10-CM Z46.1 Encounter for fitting and adjustment of hearing aid ELISHA BOCANEGRA Encounter Template Text not used by [place] Assessments - Encounter Diagnoses This section includes the primary and secondary diagnoses documented for the Encounter. Date/Time Primary/Secondary Diagnosis Diagnosis Name Provider Source Aug 22, 2024 09:36 AM PRIMARY Encounter for fitting and adjustment of hearing aid ELISHA BOCANEGRA [place] [facility] Aug 22, 2024 09:36 AM SECONDARY Sensorineural hearing loss, bilateral ELISHA BOCANEGRA [place] [facility] Encounter Notes: All associated encounter notes This section contains the clinical notes associated to the Encounter. Date/Time Encounter Note(s) Provider Source Aug 22, 2024 07:53 AM AUDIOLOGY E & M NO TE: LOCAL TITLE: AUDIOLOGY CLINIC STANDARD TITLE: AUDIOLOGY E & M NOTE DATE OF NOTE: AUG 22, 2024@07:53 ENTRY DATE: AUG 22, 2024@07:53:05 AUTHOR: ELISHA BOCANEGRA EXP COSIGNER: URGENCY: STATUS: COMPLETED AUDIOLOGY CLINIC Has ADDENDA Diagnosis: bilateral sensorineural hearing loss Hearing Aid Fitting: SUBJECTIVE (S): The [place] was seen for hearing aid fitting and issuance. S/He had previously been evaluated and found to exhibit significant hearing loss for which amplification was recommended. How does the patient/client best learn? verbal instruction, demonstration Does the patient/client have any cultural and buddhist beliefs, emotional barriers, physical or cognitive limitations, and communication barriers which may impact his/her ability to learn? no Desire and motivation to learn? Good OBJECTIVE (O): Physical fit of earmolds/receivers and domes/hearing aids was good. [place] verified comfort. Verification of an appropriate acoustic response was obtained using Real Ear measurements (speech mapping) and NAL- NL2 targets. The reported good subjective benefit as well. Feedback signal manager was run. Hearing aids were found to be meeting targets adequately and MPO was not exceeding estimated UCL. Settings stored in [place]. ASSESSMENT (A): The following device(s) was/were issued: Make: Oticon Model: Intent1 miniRITE R Serial Numbers: [id number] Battery size: RECHARGEABLE Trial Period ends: 825 Domes/wax guards, etc.: 6mm double vent domes/prowax minifit Earmold Information: n/a Assistant Research Scientist size/power: 3/85 detect Program Settings(VC,Programs, Buttons):right raise/left lower Fitting Formula: NAL-NL2 Remote programming: capable Counseling was completed today throughout todays appointment using a standardized curriculum that includes but is not limited to; realistic expectations with amplification in adverse listening environments, acclimatization to own voice and environmental sounds (following real-ear measurements), the importance of consistent use of amplification, proper insertion/removal, care and maintenance (including wax guards/domes if applicable), signal and alerts of devices, and charging/batteries. The was provided the opportunity to practice in office and reports confidence/understanding in all items reviewed. [place] was given written reference materials today. The was informed of and agreed to [place] policy on hearing aid issuance: Users are responsible for the maintenance and security of their devices. Determination of need to replace a hearing aid is made by the [place] manpower development manager. Hearing aids will not be replaced in cases of neglect, abuse, or excessive loss. Items issued are for personal use only. Prognosis for successful hearing aid use is good. PLAN (P): 1. Contact clinic with any problems/concerns. 2. The International Outcome Inventory-Hearing Aids (IOI-VACA) will be mailed to the in four weeks. He/she was asked to mail back to clinic after completion. Patient Education Education provided on the following topics: hearing aid management Education provided to: P Response to Education: DAWSON VALVERDE, PI Mahajan Patient P Family F Significant Other SO Verbalizes Understanding VU Returns Demonstration RD Performs Independently PI Lacks Comprehension LC Refused Education RE Not Applicable NA /parth/ Federico GRAY, [facility]-A STAFF GEOGRAPHY HEAD Signed: 08/22/2024 09:41 10/03/2024 ADDENDUM STATUS: COMPLETED returned IOI-VACA Outcome Measure to the clinic via mail with an overall score of 32 Based on this score: i. No follow-up call is indicated _XX_ ii. Follow-up call is indicated and fitting clinician will be notified __ /parth/ BRAYDON HICKS [facility] R[facility] Dialysis Signed: 10/03/2024 09:25 ELISHA BOCANEGRA [facility]
--- OUTSIDE RECORDS SUMMARY | 2025-01-03 06:00 | XMS_ITS ---
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 * Medical History: Objective: * Vitals: Assessment: Plan: * Treatment: * Images: * The named appointment provid er may or may not be the originator of this progress note, and it is not deemed complete until electronically signed by the appointment provider. Sign off status: Pending * Provider: Luzmaria Peña DPM Date: 0 01/03/2025 Generated for Becka chávez/Maile/Emmanuel on: 0 01/20/2025 08:14 AM EDT
--- OUTSIDE RECORDS SUMMARY | 2025-01-20 08:14 | XMS_ITS | Clinical Summary ---
Author Organization [facility] Address [facility] [address] Care Team Providers Care Senior Research Associate Name Role Phone Raul Blackmon MD Primary Care Provider [phone] Medications D3-red wine-resveratro l-malt 5,000-200 unit-mg Capsule 1 capsule. Act kameron atorvastatin (Lipitor) 10 mg tablet every 24 [...] 81 mg by mouth daily. Active Immunizations Immunization Administration Dates Next Due Covid-19 Monovalent (Moderna Spikevax) 12yrs+ (9114-8910) 09/18/2020,08/21/2020 Tdap (Adacel, Boostrix) 03/07/2024,02/05/2017 Social History Tobacco Use Types Packs/Day Years Used Date Smoking Tobacco: Never Assessed Sex and Gender Information Value Date Recorded Sex Assigned at Not on file Legal Sex Male 8:56 AM EDT Gender Identity Not on file Sexual Orientation Not on file Last Filed Vital Signs Vital Sign Reading Time Taken Comments Blood Pressure 152/82 03/07/2024 11:58 AM EDT Pulse 73 03/07/2024 11:58 AM EDT Temperature 36.6 C (97.9 F) 03/07/2024 11:58 AM EDT Respiratory Rate - - Oxygen Saturation 98% [...] o f 1 - Influenza standard series) 02/17/2025 Tetanus/Diphtheria/Pertussis Vaccines (3 - Td or Tdap) 03/07/2034 03/07/2024, 02/05/2017 Insurance MEDICARE [facility] Care Teams Senior Research Associate Relationship Specialty Start Date End Date Raul Blackmon MD [address] [place], [place] [address] PCP - General General Internal Medicine 03/07/24
== END 2025-01-20 08:10 | disposition home or self-care (01) ==
LOC: HO.HOSX 08:09
PROVIDERS: Visit Provider Orthopaedic Surgery
DX: M16.11 Unilateral primary osteoarthritis, right hip (principal); Z79.899 Other long term (current) drug therapy
CPT/HCPCS: 99212

== ENCOUNTER 2025-01-20 08:13 | Outpatient (AMB) | payer MEDICARE, SELFPAY ==
--- NOTE | 2025-01-20 08:15 | A.OFFVIS_ITS ---
Vital Signs 01/20/25 08:16 Height 5 ft 8 in Weight 196 lb BMI 29.8 Intake Visit Reasons: OV-Right hip follow up 6 Months Intake Note: Yasmany is a 74 year old male who presents today for a follow up of his Right Hip. He has Bilateral Hip OA but at his last visit we discussed that his primary disruption of ambulation is his Left Ankle Pain. He was prescribed meloxicam for this. Patient reports that the meloxicam is helpful and the right hip has been feeling better Allergies No Known Allergies Allergy (Verified 01/20/25 08:36) HPI HPI OV-Right hip follow up 6 Months: Details: Yasmany is a 74 year old male who presents today for a follow up of his Right Hip. He has Bilateral Hip OA but at his last visit we discussed that his primary disruption of ambulation is his Left Ankle Pain. He was prescribed meloxicam for this. Patient reports that the meloxicam is helpful and the right hip has been feeling better. His pain is 2 to 3/10 and he limps when he walks but he does not walk long distances. His ankle is also better. He thinks this is because of the meloxicam he has been taking. [facility] Medical History (Updated 01/20/25 @ 11:35 by Blayne Augustin MD) Hyperlipidemia CVA (cerebral vascular accident) GERD (gastroesophageal reflux disease) Tinnitus COVID-19 Ischemic stroke High blood pressure Surgical History (Updated 10/08/24 @ 11:07 by Neha Dias) Hx of prostate biopsy H/O colonoscopy (~03/11/24) Hx of hand surgery Family History (Updated 08/27/24 @ 11:35 by CAROLINE Reyez) Father Heart attack Mother Alzheimer dementia Hypertension Social History Household Members: Spouse Housing: House Are you a primary medicare insurance specialist to a significant other at home: No Do you presently have visiting nurse or other home services: No Alcohol intake: current Alcohol intake frequency: 0-2 drinks per day Alcohol type: beer Comment: counts correct Patient Tobacco Use Status: Former Tobacco user service: Yes Current occupational status: 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 He has positive impingement test bilaterally right greater than left. Assessment & Plan Assessment & Plan (1) Arthritis of right hip: Code(s): M16.11 - Unilateral primary osteoarthritis, right hip Category: Medical Plan: Yasmany is a 74-year-old gentleman with right hip osteoarthritis. He feels better than last visit he believes because of the meloxicam he has been taking. He does have a problem and he has very poor gait mechanics and when he walks more than 10 minutes he does have difficulty so I do think a hip replacement is in his future but he feels that he has improved right now in his ankles not bothering him so he is not overly inclined to surgery at this moment. I explained the procedure to him I explained the benefits and the risks and the alternatives. I will see him back in 6 months unless his pain returns prior to that and he would like to consider arthroplasty sooner. Orders: Orders XR pelvis 1-2V Today M25.559 - Pain in unspecified hip Coding Level of Care Code Est Pt Level 4 (35024) Diagnoses Arthritis of right hip M16.11
[2025-01-20 08:16] VITALS: BMI 29.8
== END 2025-01-20 09:06 | disposition home or self-care (01) ==
LOC: HO.HOS 08:14
PROVIDERS: PCP Internal Medicine; Visit Provider Orthopaedic Surgery
DX: M16.11 Unilateral primary osteoarthritis, right hip (principal)
CPT/HCPCS: 99214

== ENCOUNTER 2025-03-17 08:27 | Outpatient (AMB) | payer MEDICARE, SELFPAY ==
--- OUTSIDE RECORDS SUMMARY | 2024-03-11 03:30 | XMS_ITS ---
Author Organization [facility] Address [address] [place] [address] Care Team Providers Care Logging Crew Supervisor Name Role Phone Lorri (RETIRED) Raul ESTEVES Primary Care Provide r Jovanni Johnson Unavailable [phone] REASON FOR VISIT screening,hx polyps,gerd Problems Problem Type SNOMED Code ICD Code Onset Dates Problem Status W/U Status Risk Notes Problem Diverticular disease of colon (790318330) Diverticulosis of large intestine without perforation or abscess without bleeding (K57.30) Active confirmed Problem Gastroesophageal reflux disease (490906704) Gastroesophageal reflux disease (K21.9) Active confirmed Encounters Encounter Location Date Provider [place] [facility] [place] [address] [place] [id number] 03/11/2024 Jovanni Hatch Colon cancer scree hayes [...] * ELLIS MARKS MDOB:1949 (75 yo M)Acc No.[id number]:03/11/2024 EGD and COL/MAC Patient: ELLIS ANAND Provider: Fidencio Hatch MD :1950 A ge:74 Y S ex:Male Date:03/11/2024 Address:[address] [place] [address] [facility] Pcp:Raul Blackmon (RETIRED )MD Subjective: * Chief [...] FLW-UP 10 YRS DOCD, Modifiers: 1P , 08629 UPPER GI ENDOSCOPY, BIOPSY * * The named appointment provid er may or may not be the originator of this progress note, and it is not deemed complete until electronically signed by the appointment provider. Sign off status: Pending * Provider: Fidencio Hatch MD Date: 0 03/11/2024 Generated for Becka chávez/Maile/Chalinoitting on: 03/17/2025 08:49 AM EDT
--- OUTSIDE RECORDS SUMMARY | 2025-01-03 06:00 | XMS_ITS ---
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 * Medical History: Objective: * Vitals: Assessment: Plan: * Treatment: * Images: * The named appointment provid er may or may not be the originator of this progress note, and it is not deemed complete until electronically signed by the appointment provider. Sign off status: Pending * Provider: Luzmaria Peña DPM Date: 0 01/03/2025 Generated for Becka chávez/Maile/Emmanuel on: 0 03/17/2025 08:49 AM EDT
--- OUTSIDE RECORDS SUMMARY | 2025-03-14 05:30 | XMS_ITS ---
Author Organization [facility] Luke eileen Malcolm Address [address] [facility] [place] [address] Care Team Providers Care Conduit Reamer Operator Name Role Phone Bennett Hager Primary Care Provider Ryan Peña Unavailable [phone] Raul Blackmon MD Unavailable Unavailable Allergies No Known Allergies REASON FOR VISIT Painful nail(s) aggravated by shoes causing difficulty standing/walking, Ankle pain Medications Medication SIG (Take, Route, Frequency, Duration) Notes Start Date End Date Status amLODIPine Besylate 5 MG 1 tablet Orally Once a day Active Vitamin D 5000 mg 1 tablet Orally Once a day Active Aleve 220 MG 1 tablet as needed O rally every 12 hrs Unknown Atorvastatin Calcium 10 MG 1 tablet Orally Unknown Econazole Nitrate 1 % 1 application to a ffected area Externally Once a day; Duration: 30 days 12/10/2015 Unknown Aspirin 81 MG 1 capsule Orally Onc e a day Active Meloxicam 15 MG 1 tablet Orally Once a day Active Famotidine 20 MG 1 tablet at bedtime as needed Orally Once a day Active Pravastatin Sodium 20 MG 1 tablet Orally Once a day Active Social History Tobacco Use: Social History Observation Description Date Details (start date - stop date) Never Smoker NA - NA Alcohol Screen Question Answer Notes Did you have a drink contain ing alcohol in the past year? Yes How often did you have a dri nk containing alcohol in the past year? 4 or more times a week (4 points) Points 4 Interpretation Positive Tobacco use other than smoking: Question Answer Notes Are you an other tobacco user? No Tobacco Control (Standard) Question Answer Notes Tobacco use: Nonsmoker Additional Findings: Tobacco non-user Current no nsmoker AUDIT-C (Standard) Question Answer Notes Did you have a drink contain ing alcohol in the past year? Yes How often did you have a dri nk containing alcohol in the past year? Daily or almost daily (4 points) How many drinks did you have on a typical day when you were drinking in the past year? 3 or 4 drinks (1 point) How often did you have six o r more drinks on one occasion in the past year? Never (0 point) Points 5 Interpretation Positive Problems Problem Type SNOMED Code ICD Code Onset Dates Problem Status W/U Status Risk Notes Problem Localized, primary osteoarthritis of the ankle and/or foot (426951728) 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) Active confirmed Problem Onychomycosis (325877095) Onychomycosis (B35.1) Active confirmed Vital Signs Blood pressure systolic 120 mm Hg 03/14/20 25 Blood pressure diastolic 80 mm Hg 025 Height 5ft 8in in 03/14/2025 Weight 190 lbs 03/14/2025 BMI 28.89 kg/m2 03/14/2025 Procedures Procedure Date Ordered Date Performed Result Body Sit e 38541-YSTTFAN NAIL, 6 OR MORE 03/14/2025 N/A Encounters Encounter Location Date Provider Diagnosis [facility] [address] [address] 03/14/2025 Ryan Peña Pain in right toe(s) M79.674 ; Onychomycosis B35.1 ; Pain in left toe(s) M79.675 ; Arthralgia of left ankle M25.572 and Primary osteoarthritis of left ankle M19.072 Assessments Encounter Date Diagnosis (ICD Code) Assessment Notes Treatment Notes Treatment Clinical Notes Section Notes 03/14/2025 Pain in right toe(s) (ICD-10 - M79.674) 03/14/2025 Onychomycosis (ICD-10 - B35.1) 03/14/2025 Pain in left toe(s) (ICD-10 - M79.675) 03/14/2025 Arthralgia of left ankle (ICD-10 - M25.572) 03/14/2025 Primary osteoarthritis of left ankle (ICD-10 - M19.072) Plan Of Treatment Pending Test Test Name Order Date X ray : Ankle, left 3V 03/14/2025 80653-KPSMRZV NAIL, 6 OR MORE 03/14/2025 Next Appt Details Follow Up: prn, Reason: Provider Name:Ryan Peña , 07/04/2025 12:30:00 PM, [address] [place] [address], [id number], Procedure Notes * Category Sub-Category Detail Notes Debride Nail 6-10 Nail debridement Due to the cl inical pathology outlined in the exam findings, performance of this nail treatment is medically necessary as its management by an unskilled/untrained nonprofessional would put this patients foot and overall health at risk. Therefore, debridement to affected nail(s), as described in exam ( TA, T2, T3, T4, T5, T8, T9 ), was performed exclusively by the physician of record to reduce/remove overall nail length, girth, thickness, subungual debris, and necrotic tissue, by manual and/or electrical means through the use of a nail nipper and/or dremel-type snuff grinder, to a more viable healthy nail plate or bed tissue 6-10 nails in total. Silver nitrate was used for any petechial bleeding as necessary. Definitive antifungal treatment options, both pharmaceutical and surgical, have been reviewed and discussed with the patient. The patient solely prefers the use of intermittent/as needed professional debridement services for their nail condition and understands the need for additional periodic treatments to maintain effectiveness in symptomatic relief - 00475 Progress Notes * Yasmany HARDY MDOB:1949 (75 yo M)Acc No.[id number]:03/14/2025 Progress Notes Patient: Marta Yasmany BAUTISTA Provider: Luzmaria Peña DPM :1950 A ge:75 Y S ex:Male Date:03/14/2025 Address:[address] [place], [place] [id number] Pcp:Bennett Hager Subjective: * Chief Complaints: * P ainful nail(s) aggravated by shoes causing difficulty standing/walkingAnkle pain * HPI: P ainful Nails: Pt States Last PCP Visit: D ate: 0 12/04/2024 Misc: P t accompanied by, ,ROSA MARIA, who is physically present in exam room at time of visit. A nkle Pain: Nature: a betzy, stiffness, swelling, throbbing. Location: L eft ankle. Duration: s everal years. Onset/Cause: g radual. Course: w orse. Aggravated by: a ny pressure, standing, walking. Treatments: r est/alter normal daily activity, change in shoes, custom orthoses, meds ( Piroxicam ), Aspercream, Voltaren gel, CBD. * ROS: G eneral/Constitutional: Nausea d enies. V omiting d enies. H wil Thirst d enies. L oss appetite d enies. C hills d enies. F atigue d enies.?Fever d enies. N ight Sweats d enies. U nexplained weight loss d enies. U nexplained weight gain d enies. H EENTM: Dentures d enies. D izziness d enies. G lasses/contacts d enies. R etinopathy d enies. B lurred/double vision d enies. T MJ?denies. D ischarge/drainage d enies. I mplants d enies. S ore throat d enies. D ental implants d enies. H adrienne of hearing d enies. D ifficulty chewing/swallowing/speaking d enies. N ose bleeds d enies. S ore mouth d enies. ? R espiratory: On Oxygen d enies. P neumonia/pleurisy d enies.?Bronchitis d enies. E mphysema d enies. C oughing d enies. C ough blood?denies. S hortness of breath d enies. W heezing d enies. C ardiovascular: Pacemaker d enies. M MARKETING AREA MANAGER d enies. W PW d enies. C HF d enies. H eart attack d enies. S eptal defect d enies. R apid beat d enies. C hest pain d enies. A trial Fib. d enies. M urmur/Palpitations d enies. G astrointestinal: Hemorrhoids d enies. S tomach/Abdominal pain d enies. D ark blood stool d enies. I rritable bowel d enies. C onstipation d enies. D iarrhea d enies. H ematology: Swelling d enies. C lots d enies. V aricose Veins d enies. B ruising a dmits, on aspirin. B leeding problem a dmits, on anticoagulants. G enitourinary: Blood urine d enies. F requent/Painfu/urination/bladder control d enies. K idney stones d enies. I nfection (UTI) d enies. N ephropathy d enies. s ex trans dis (STD) d enies. P rostate d enies. M usculoskeletal: Hammertoes d enies. B unions d enies. B ack Pain d enies. M uscle Cramps/ Resting d enies. M uscle cramps / walking d enies.?Generalized aches and pains d enies. W eakness d enies. I nteg.: Philip d enies. S cars d enies. C orns/calluses?admits. I ngrown nails a dmits. P ainful nails a dmits. O pen Sores d enies. R ashes d enies. N eurologic: Difficulty sleeping d enies. B rain disorder d enies. N umbness d enies. B alance trouble d enies. C onfusion d enies. F ainting/blackouts d enies. T ingling d enies. T remors d enies. * Medical History: * Surgical History: D enies Past Surgical History * Hospitalization/Major Diagno stic Procedure: D enies Past Hospitalization * Family History: M other: . F ather: , diagnosed with Unspecified essential hypertension, Unspecified heart disease. * Social History: T obacco Use: T obacco use other than smoking A re you an other tobacco user? N o Tobacco Control (Standard) T obacco use: N onsmoker A dditional Findings: Tobacco non-user C urrent nonsmoker D rugs/Alcohol: D rugs H ave you used drugs other than those for medical reasons in the past 12 months? N o Alcohol Screen D id you have a drink containing alcohol in the past year? Y es H ow often did you have a drink containing alcohol in the past year? 4 or more times a week (4 points) P oints 4 I nterpretation P ositive M iscellaneous: C affeine: yes, frequency:, 2-3 cups per day. Children: yes, 3. Exercise: yes, walking, /yard work. Marital status: . 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 D rug/Alcohol: A KIRSTIE-C (Standard) D id you have a drink containing alcohol in the past year? Y es H ow often did you have a drink containing alcohol in the past year? D aily or almost daily (4 points) H ow many drinks did you have on a typical day when you were drinking in the past year? 3 or 4 drinks (1 point) H ow often did you have six or more drinks on one occasion in the past year? N ever (0 point) P oints 5 I nterpretation P ositive * Medications: T akingAspirin 81 MG Capsule 1 capsule Orally Once a day Meloxicam 15 MG Tablet 1 tablet Orally Once a day Famotidine 20 MG Tablet 1 tablet at bedtime as needed Orally Once a day Pravastatin Sodium 20 MG Tablet 1 tablet Orally Once a day amLODIPine Besylate 5 MG Tablet 1 tablet Orally Once a day Vitamin D 5000 mg Tablet 1 tablet Orally Once a day Taking Aspirin 81 MG Capsule 1 capsule Orally Once a day Taking Meloxicam 15 MG Tablet 1 tablet Orally Once a day Taking Famotidine 20 MG Tablet 1 tablet at bedtime as needed Orally Once a day Taking Pravastatin Sodium 20 MG Tablet 1 tablet Orally Once a day Taking amLODIPine Besylate 5 MG Tablet 1 tablet Orally Once a day Taking Vitamin D 5000 mg Tablet 1 tablet Orally Once a day UnknownAleve 220 MG Tablet 1 tablet as needed Orally every 12 hrs Atorvastatin Calcium 10 MG Tablet 1 tablet Orally Econazole Nitrate 1 % Cream 1 application to affected area Externally Once a day Medication List reviewed and reconciled with the patientUnknown Aleve 220 MG Tablet 1 tablet as needed Orally every 12 hrs Unknown Atorvastatin Calcium 10 MG Tablet 1 tablet Orally Unknown Econazole Nitrate 1 % Cream 1 application to affected area Externally Once a day Medication List reviewed and reconciled with the patient * Allergies: N .K.D.A.yes[Allergies Verified] Objective: * Vitals: H t: 5ft 8in, Wt:190, BMI:28.89, Shoe size: 10, BP:120/80mm Hg, Ht-cm: 172.72 cm, Wt-k.18 kg. * Examination: N ails: NAILS are: E longated, overgrown, dystrophic, lytic, greater than 3mm thick, discolored and friable with crumbly malodorous subungual debris, with pain on palpation , TA, T2, T3, T4, T5, T8, T9, all other nails not described with characteristics as possessing mycosis are elongated, overgrown, and dystrophic. O rthopedic: MUSCLE STRENGTH: 5 /5 all groups in a symmetrical fashion , B/L. FOOT MORPHOLOGY: P es Cavus structure. ANKLE PAIN LOCATED: L EFT, Anterior ankle, Medial ankle, Lateral ankle, ( +) swelling, ( -) ecchymosis, pain with ankle joint ROM, limited ankle joint range of motion, (+) crepitus with ankle joint ROM. FOOTWEAR EVALUATION: w orn, OT were inspected and noted to be severely worn , in poor condition not giving proper support at the present time. X -Rays - IMAGING REPORT: Clinical Indication(s): E valuate for Fracture, Evaluate Biomechanical Deformity. Views: 3 views of Ankle, LEFT, AP, LAT, LO, Taken by a trained Podiatric Robotic Toy Inventor ( DC ). Findings: n ormal bone and soft tissue density consistent for patients age and sex, asymmetrical Ankle joint space narrowing, ( __ ). Fracture: N egative fractures identified. ? D ermatologic: SKIN FINDINGS: S kin exam reveals normal texture, elasticity, and turgor. There are no masses. The interspaces are clear. V ascular: DP PULSES (B): 3 /4, B/L. PT PULSES (B): 3 /4, B/L. CAPILLARY FILL TIME: i mmediate, all digits, B/L. TROPHIC CONDITION-TEXTURE/ELASTICITY/TURGOR/HAIR GROWTH (B):?normal, B/L. TEMPERTURE GRADIENT (C): w arm to cool, proximal to distal, B/L. PIGMENTATION: n ormal, B/L. EDEMA (C): a bsent, B/L. N eurological: SENSORY: N eurological exam reveals intact sensorium, pain sensation normal, vibration sensation intact, pinprick sensation is normal in the lower extremities, Pt denies, anesthesia, burning, paresthesia, tingling, B/L. DEEP TENDON REFLEXES: A chilles, 2/4, B/L. G eneral Examination: GENERAL APPEARANCE: R michaels a pleasant, alert, well-nourished, well-developed, well hydrated individual, who demonstrates proper attention to hygiene/body habitus, and is in no acute distress, Pt serves as own historian for office visit today, Pt accompanied by, , who i s physically present in exam room at time of visit. ORIENTED: p erson, place, and time. Assessment: * Assessment: 1. P ain in right toe(s) - M79.674 2 . O nychomycosis - B35.1 (Primary)? 3. P ain in left toe(s) - M79.675 4 . A rthralgia of left ankle - M25.572 S pecify :Chronic problem, Worse (4) 5 . P rimary osteoarthritis of left ankle - M19.072 S pecify :Chronic problem, Worse (4) Plan: * Treatment: 2. A rthralgia of left ankle I maging: X ray : Ankle, left 3V * Procedures: D ebride Nail 6-10: Nail debridement D ue to the clinical pathology outlined in the exam findings, performance of this nail treatment is medically necessary as its management by an unskilled/untrained nonprofessional would put this patients foot and overall health at risk. Therefore, debridement to affected nail(s), as described in exam ( T A, T 2, T 3, T 4,?T5, T 8, T 9 ), was performed exclusively by the physician of record to reduce/remove overall nail length, girth, thickness, subungual debris, and necrotic tissue, by manual and/or electrical means through the use of a nail nipper and/or dremel-type snuff grinder, to a more viable healthy nail plate or bed tissue 6-10 nails in total. Silver nitrate was used for any petechial bleeding as necessary. Definitive antifungal treatment options, both pharmaceutical and surgical, have been reviewed and discussed with the patient. The patient solely prefers the use of intermittent/as needed professional debridement services for their nail condition and understands the need for additional periodic treatments to maintain effectiveness in symptomatic relief - 80937. * Procedure Codes: 1 1721 DEBRIDE NAIL, 6 OR [id number] X-RAY EXAM OF LEFT ANKLE 3V, Modifiers: 26 , LT * Preventive Medicine: Counseling: A lcohol: MODERATION OF ETOH CONSUMPTION RECOMMENDATION: C ounseling about alcohol consumption D iscussion: - 04: Office or other outpatient visit for the evaluation and management of a new patient, which required a medically appropriate history and/or examination and MODERATE level of DECISION MAKING for: 1 OR MORE CHRONIC PROBLEM(S) THATS WORSENING, 2 STABLE CHRONIC PROBLEMS, A NEWLY DIAGNOSED PROBLEM WITH UNCERTAIN PROGNOSIS, AN ACUTE COMPLICATED INJURY WITH MULTIPLE TREATMENT OPTIONS, OR AN ACUTE PROBLEM WITH ACCOMPANYING SYSTEMIC SYMPTOMS, THAT POSE(S) A MODERATE RISK OF MORBIDITY. THIS CONDITION MAY ALSO INCLUDE RX DRUG MANAGEMENT, OR A DECISON FOR MINOR SURGERY. The visit on the day of the encounter encompassed interpreting the data and educating the patient as to the nature of their condition, treatment options available according to their individual PMH, meds, allergies, and overall health/living conditions, as well as any potential risks or complications that may occur from a failure to adhere to, and participate in, the recommended course of therapy. The discussion included a complete verbal, and/or written explanation of the examination results, any x- rays taken, the proposed diagnosis, and outline of the treatment plan. A schedule for future care needs was also explained. The patient verbalized an understanding of the instructions at this time and agreed to be an active participant in their treatment. If the patient should think of any questions or concerns after the visit, I have encouraged the patient to call the office. A nkle Pain: I explained to the patient the possible etiologies of their Ankle Pain, including foot type/shoegear/activity level/exercise routine and the risks/benefits of all the different treatment options for pain including: No treatment at all, Rest, Ice, NSAIDs(only if well tolerated after meals), New/supportive Shoegear, Strappings and Tapings, Foot/Ankle AFO Bracing, Stretching exercises, Deep Tissue Massage, Heel cups/cushions, Arch support/shoe inserts, Custom orthoses, Topical analgesics including Aspercream/Voltaren gel, Night splints for am stiffness, Physical Therapy, EPAT/ESWT, Interfil injection therapy. Advantages and disadvantages of each option were discussed and the patients questions re: shoegear, custom vs prefabricated inserts, activity level, PO vs Topical medications (and their respective potential complications/drug interactions/side effects), and consistency in home treatment regimens for optimal success were answered to their verbally confirmed satisfaction. A rthritis: T he patient was counseled on the various etiologies for their Arthritis including genetic, history of injury or trauma, abnormal foot biomechanics leading to excessive joint wear, and use/overuse. We discussed the various treatment options from no treatment, to topical analgesics such as Biofreeze gel, Aspercream, Voltaren gel, Lidoderm patches, CBD oils, THC creams, and Custom-compounded topical cream preparations to natural oral products such as Glucosamine Sulfate/Chondroitin/MSM/Collegen to analgesic Tylenol, to anti-inflammatory medications such as Ibuprofen/Naproxen, and the use of oral steroids if needed. Cardiac, Kidney, and GI issues were discussed RE: potential complications of oral anti-inflammatories. We discussed several other treatment options consisting of accom shoes, supportive innersoles, AFO bracing/support, cortisone injection therapy, and surgical resection of the arthritic joint(s) or fusion reconstruction if necessary. We discussed the advantages and disadvantages of conservative (vs) surgical treamtents including pain relief, improved function/activities of daily life, return to exercise to failure, expense, systemic complications, infection, [id number], prolongued postop course. Patient questions re: the various treatment options available, their successes and potential failures, and tank terminal gauger effects were discussed and the answers were verbally confirmed understood. O rthotics: I explained to the patient the benefits of OT use. I explained that orthoses are medically necessary to decrease the foot pain through proper mechanical control, support of their foot, possibly prevent surgery, Prefabricated orthoses ( COMFORT 3/4 - E ), were dispensed. The inserts were comfortably fit to the patients feet in both weight-bearing and non-weight bearing attitudes. The patient was instructed to increase the amount of time they were wearing the inserts, starting with one hour the first day and gradually increasing the amount of time worn until they are using them multimedia artist and in all activities. They were asked to call the office if any signs of irritation were noted such as redness, blistering or callous formation. Instuctions were given for their usage and proper break-in/wear/care. Pt expressed comfort with and tolerance to inserts dispensed. P .R.I.C.E.: T he patient was counseled on the use of P.R.I.C.E. and NSAIDS (if well tolerated) to aid in the recovery from their painful condition, Recommended Topical analgesics including Aspercream/Biofreeze/Voltaren gel as directed. S hoe Gear Counseling: T he patient and I reviewed the types of shoes they should be wearing. My recommendation included obtaining a well-fitted shoe with a good supportive, non-foldable nor twistable sole, plenty of toe/room for the forefoot, and proper arch support. Based on todays examination, I recommended the patient look for new shoes, by having their feet professionally measured. We discussed that generally the best time of the day for a shoe fitting is the afternoon. Different shoes types and brands to best match the patients occupation and vocation were discussed. Specific brand selection will be up to the patient, their individual foot condition/deformities, and fit. The patient and I reviewed the standard new shoe break in period by wearing them for a few hours a day while checking for redness or sores as wear time is increased. The patient verbally confirmed to understanding the information discussed. Screening/Special Tests: F all Risk Screening: N o falls in the past year F ALLS: Screening for Future Fall Risk Have you had any falls with injury in the past year? N o * Follow Up: p rn * Images: * Sign off status: Completed true * Provider: Luzmaria Peña DPM Date: 03/14/2025 Generated for Becka chávez/Maile/Emmanuel on: 03/17/2025 08:49 AM EDT History and Physical Notes * HPI (History of Present Illness) Category Sub-Category Detail Notes Category Not es Ankle Pain Duration: several years Nature: aching, stiffness, s welling, throbbing Treatments: rest/alter normal da elana activity, change in shoes, custom orthoses, meds ( Piroxicam ), Aspercream, Voltaren gel, CBD Course: worse Location: Left ankle Onset/Cause: gradual Aggravated by: any pressure, standi ng, walking Painful Nails Misc: Pt accompanied b y, , ROSA MARIA, who is physically present in exam room at time of visit Pt States Last PCP Visit: Date:: 12/04/2024 Examination Category Sub-Category Detail Notes Category Not es Neurological SENSORY: Neurological exa m reveals intact sensorium, pain sensation normal, vibration sensation intact, pinprick sensation is normal in the lower extremities, Pt denies, anesthesia, burning, paresthesia, tingling, B/L DEEP TENDON REFLEXES: Achilles, 2/4, B/L Dermatologic SKIN FINDINGS: Skin exam reveal s normal texture, elasticity, and turgor. There are no masses. The interspaces are clear Orthopedic FOOT MORPHOLOGY: Pes Cavus structure ANKLE PAIN LOCATED: LEFT, Anterior ankle , Medial ankle, Lateral ankle, ( +) swelling, ( -) ecchymosis, pain with ankle joint ROM, limited ankle joint range of motion, (+) crepitus with ankle joint ROM FOOTWEAR EVALUATION: worn, OT were inspe cted and noted to be severely worn , in poor condition not giving proper support at the present time MUSCLE STRENGTH: 5/5 all groups in a symmetrical fashion , B/L General Examination GENERAL APPEARANCE: Reveals a pleasant, alert, well- nourished, well-developed, well hydrated individual, who demonstrates proper attention to hygiene/body habitus, and is in no acute distress, Pt serves as own historian for office visit today, Pt accompanied by, , who is physically present in exam room at time of visit ORIENTED: person, place, and t jane Vascular DP PULSES (B): 3/4, B/L PT PULSES (B): 3/4, B/L CAPILLARY FILL TIME: immediate, all digi ts, B/L TEMPERTURE GRADIENT (C): warm to cool, p roximal to distal, B/L TROPHIC CONDITION-TEXTURE/ELASTICITY/TURGOR/HAIR GROWTH (B): normal, B/L EDEMA (C): absent, B/L PIGMENTATION: normal, B/L Nails NAILS are: Elongated, overg rown, dystrophic, lytic, greater than 3mm thick, discolored and friable with crumbly malodorous subungual debris, with pain on palpation , TA, T2, T3, T4, T5, T8, T9, all other nails not described with characteristics as possessing mycosis are elongated, overgrown, and dystrophic X-Rays - IMAGING REPORT Findings: normal b one and soft tissue density consistent for patients age and sex, asymmetrical Ankle joint space narrowing, ( __ ) Fracture: Negative fractures i dentified Views: 3 views of Ankle, LE FT, AP, LAT, LO, Taken by a trained Podiatric Robotic Toy Inventor ( DC ) Clinical Indication(s): Evaluate for Fra cture, Evaluate Biomechanical Deformity
[2025-03-17 08:42] VITALS: BP 153/69; PULSE 76; RESP 16; TEMP 36.2; O2SAT 99; BMI 29.4
--- NOTE | 2025-03-17 08:42 | A.OFFPC_ITS ---
Vital Signs 03/17/25 08:42 Height 5 ft 8 in Weight 193 lb 4 oz BMI 29.4 BP 153/69 H Blood Pressure Location Rt brachial Position Sitting Respiration 16 Pulse 76 Pulse Source Pulse Oximeter Temp 97.2 F Temp Source Temporal Artery Scan Pulse Oximetry (%) 99 Oxygen Delivery Method Room Air Intake Visit Reasons: follow up Cabinet Maker Required: No Accompanied by: Self / Same As Patient Allergies No Known Allergies Allergy (Verified 03/17/25 08:42) Tobacco use date assessed: 03/17/25 Fall risk assessment: No Falls in past year Last assessed Fall Risk: 03/17/25 Dental Screening Dental Screen Date: 03/17/25 Did you have a dental visit in the last 12 months?: Yes Did you have a dental problem in the last 6 months where you did not have access to dental care?: No PFSH Medical History (Updated 03/17/25 @ 09:06 by Bennett Hager MD) Hyperlipidemia CVA (cerebral vascular accident) GERD (gastroesophageal reflux disease) Tinnitus COVID-19 Ischemic stroke High blood pressure Surgical History Hx of prostate biopsy H/O colonoscopy (~03/11/24) Hx of hand surgery Family History Father Heart attack Mother Alzheimer dementia Hypertension Social History Household Members: Spouse Housing: House Are you a primary career development engineer to a significant other at home: No Do you presently have visiting nurse or other home services: No Alcohol intake: current Alcohol intake frequency: 0-2 drinks per day Alcohol type: beer Comment: counts correct Patient Tobacco Use Status: Former Tobacco user service: Yes Current occupational status: 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 1. Little interest or pleasure in doing things: not at all 2. Feeling down, depressed, or hopeless: not at all 3. Trouble falling or staying asleep, or sleeping too much: not at all 4. Feeling tired or having little energy: not at all 5. Poor appetite or overeating: not at all 6. Feeling bad about yourself - or that you are a failure or have let yourself or your family down: not at all 7. Trouble concentrating on things, such as reading the newspaper or watching television: not at all 8. Moving or speaking so slowly that other people could have noticed. Or the opposite - being so fidgety or restless that you have been moving around a lot more than usual: not at all 9. Thoughts that you would be better off or of hurting yourself in some way: not at all Total score: 0 Source: Developed by Drs. Jovanni Rodriguez, Maria C Salguero, Marquise Mahmood and colleagues, with an educational shimon from [employer]. Thrive Questionnaire Date Thrive assessed: 03/17/25 I am a: Patient What is your living situation today?: I have a steady place to live Within the past 12 months, did the food you bought not last and you didn't have the money to get more?: Never true Within the past 12 months, did you worry whether your food would run out before you got money to buy more?: Never true Do you have trouble paying for medicines?: No Do you have trouble getting transportation to medical appointments?: No Do you have trouble paying your heating and electricity bill?: No Do you have trouble taking care of your child, family member or friend?: No Do you have trouble with day-to-day activities such as bathing, preparing meals, shopping, managing finances, etc.?: No Are you currently unemployed and looking for a job?: No Are you interested in more education?: No THRIVE Score: 0 AUDIT C Alcohol Use Questionnaire (AUDIT-C) 1. How often do you have a drink containing alcohol?: Never Total Score: 0 LINDSEY-7 AMB Questionnaire LINDSEY-7 Date LINDSEY - 7 assessed: 03/17/25 Feeling nervous, anxious, or on edge: 0 = Not at all Not being able to stop or control worryin = Not at all Worrying too much about different things: 0 = Not at all Trouble relaxin = Not at all Being so restless that it is hard to sit still: 0 = Not at all Becoming easily annoyed or irritable: 0 = Not at all Feeling afraid as if something awful might happen: 0 = Not at all Total LINDSEY-7 score (0-4 normal; 5-9 mild; 10-14 moderate; 15-21 severe): 0 Source: Developed by Drs. Jovanni Rodriguez, Maria C Salguero, Marquise Mahmood and colleagues, with an educational shimon from [employer]. Physical exam (Primary Care) Vital Signs: Last Vital Signs Temp 97.2 F 03/17/25 08:42 Pulse 76 03/17/25 08:42 Resp 16 03/17/25 08:42 BP 153/69 H 03/17/25 08:42 Pulse Ox 99 03/17/25 08:42 Oxygen Delivery Method Room Air 03/17/25 08:42 BMI result Body Mass Index 29.4 Tobacco/Smoking Status: Tobacco use Status Tobacco use date assessed 03/17/25 03/17/25 08:50 Patient Tobacco Use Status Former Tobacco user 03/17/25 08:50 PHQ-9: PHQ-9 Score PHQ-9: Total score 0 03/17/25 08:54 Thrive Assessment: Date of Thrive Assessment Date Thrive assessed 03/17/25 03/17/25 08:50 Office Procedures Flu Questionnaire Does the patient have a severe egg allergy?: No Does the patient have severe life threatening allergies?: No Does the patient have a fever or illness today?: No Has the patient ever had Guillain-Mabank Syndrome?: No Has the patient ever had any past reaction to a flu shot?: No Immunizations Fluarix [id number] (PF) 45 mcg (15 mcg x 3)/0.5 mL IM syringe Performing Provider: Bennett Hager MD [facility] Documented (not given) by: Laura Arauz CMA on 03/17/25 08:54 Reason Not Given: Patient Refused Coding Level of Care Code Est Pt Level 4 (36333) Complex EM visit Add On G2211 Diagnoses Osteoarthritis of hips, bilateral M16.0 High blood pressure I10 Hyperlipidemia E78.5 Assessment & Plan Assessment & Plan (1) Osteoarthritis of hips, bilateral: Code(s): M16.0 - Bilateral primary osteoarthritis of hip Category: Medical Plan: Stretching exercises suggested (2) High blood pressure: Code(s): I10 - Essential (primary) hypertension Category: Medical Plan: BP is normal. Continue current medication (3) Hyperlipidemia: Code(s): E78.5 - Hyperlipidemia, unspecified Category: Medical Plan: Continue statin Plan History of Present Illness - The patient is a 75-year-old male presenting with joint pain and stiffness. - Osteoarthritis: Reports joint stiffness in the hip and knee, with morning stiffness and worsening with activity. Meloxicam and Tylenol provide relief. - Hyperlipidemia: Concern about pravastatin causing joint pain, though it is more likely to cause muscle pain. Experienced a stroke after discontinuing pravastatin, now resumed. - Lipoma: Lump on the back identified as a lipoma, no symptoms. - Hearing impairment: Occasional blockage in the right ear, minimal wax found on examination. - The patient is retired, engages in yard work, and has not received the flu vaccine in recent years. Social History - The patient is retired and engages in yard work and household activities. - The patient has not received the flu vaccine in recent years, previously received it when mandatory during employment. Review of Systems - Musculoskeletal: Reports joint stiffness, particularly in the hip and knee, with morning stiffness and worsening with activity. - Neurological: Denies any current neurological symptoms post-stroke. - Dermatological: Reports a lump on the back, identified as a lipoma, with no associated symptoms. - Auditory: Reports occasional blockage in the right ear, minimal wax found on examination. Physical Exam General: Cooperative and healthy appearing Nutritional Appearance: Well nourished Orientation/consciousness: Patient oriented x3 Limitations: No limitations Head: Normal to inspection General: Appearance normal, both eyes and all related structures Neck: Normal visual inspection Chest: Normal palpation of entire chest wall Respiratory: Patient instructed to take deep breaths; no abnormalities noted. ormal respiratory effort Neurology: Patient oriented x3; no neurological deficits observed. Results Plan - Continue meloxicam for osteoarthritis pain management and Tylenol at night as needed. - Maintain pravastatin therapy for hyperlipidemia to prevent cardiovascular events, despite concerns about joint pain. - Consider physical therapy to improve joint mobility and reduce stiffness through stretching exercises. - Monitor the lipoma for any changes, no immediate intervention required. - Schedule fasting blood work to assess cholesterol levels. - Reassess the need for hip replacement surgery based on quality of life and functional limitations. Discussion Notes I discussed with the patient the importance of continuing pravastatin to manage hyperlipidemia and prevent cardiovascular events, despite concerns about joint pain. We reviewed the potential benefits and risks of hip replacement surgery, emphasizing the impact on quality of life and functional limitations. I advised on the importance of stretching exercises to alleviate joint stiffness and leslie mmended scheduling fasting blood work to monitor cholesterol levels. We also discussed monitoring the lipoma for any changes and the patient's decision regarding the flu vaccine. Patient Instructions - Continue taking meloxicam and Tylenol as directed for joint pain. - Keep taking pravastatin to manage cholesterol levels. - Perform daily stretching exercises to improve joint mobility. - Monitor the lump on your back for any changes. - Schedule and complete fasting blood work for cholesterol. - Consider the impact of hip replacement surgery on your quality of life before deciding. Orders: Orders Influenza [id number] Immunization Today Z23 - Encounter for immunization
--- OUTSIDE RECORDS SUMMARY | 2025-03-17 08:49 | XMS_ITS | Patient Health Record ---
Author Organization [facility] Address [address] [place] [address] Care Team Providers Care Welfare Aide Name Role Phone Lorri (RETIRED) Raul ESTEVES Primary Care Provide r Jovanni Johnson Unavailable [phone] Allergies No Known Allergies Reason For Referral No Information Medications Medication SIG (Take, Route, Frequency, Duration) Notes Start Date End Date Status Vitamin D 5000 1 capsule Orally Once a day twice a week Active Omeprazole 20 MG 1 capsule Orally Once a day every morning for 90 days Please remind patient to stop his Famotidine when he starts the omeprazole. Thanks 11/16/2023 Active Atorvastatin Calcium 10 MG 1 tablet Orally Once a day Active Pravastatin Sodium 20 MG Oral for 90 Active amLODIPine Besylate 2.5 MG Oral for 90 Active Famotidine 20 MG Oral for 90 [...] Problem Status W/U Status Risk Notes Problem 237623565 Encounter for screening for malignant neoplasm of colon (Z12.11) Active confirmed Problem 586666652 History of adenomatous polyp of colon (Z86.010) Active confirmed Problem Diverticular disease of colon (485466615) Diverticulosis of large intestine without perforation or abscess without bleeding (K57.30) Active confirmed Problem Gastroesophageal reflux disease (846677370) Gastroesophageal reflux disease (K21.9) Active confirmed Problem 15444548 Hypertension, unspecified type (I10) Active confirmed Problem Gastroesophageal reflux disease (disorder) (616223567) Chronic GERD (K21.9) Active confirmed Encounters Encounter Location Date Provider Diagnosis [facility] [address] [place] [id number] 04/05/2024 Jovanni Hatch [facility] [address] [place] [phone] 11/05/2024 Jovanni Hatch Chronic GERD K21.9 Assessments Encounter Date Diagnosis (ICD Code) Assessment Notes Treatment Notes Treatment Clinical Notes Section Notes 11/05/2024 Chronic GERD (ICD-10 - K21.9) Plan Of Treatment Future Test Test Name Order Date COLONOSCOPY 10/14/2011 COLONOSCOPY 04/25/2018 UPPER GI ENDOSCOPY 11/16/2023 COLONOSCOPY 11/16/2023 Insurance Providers Payer Name Payer Address Payer Phone Subscriber Number Group Number Insured Name Patient Relationship to Insured Coverage Start Date Coverage End Date MEDICARE OF [place] [address] [place] [address] [id number] ELLIS MARKS Self - patient is the insured [employer] CLAIMS [address] [place] [address] [id number] ELLIS MARKS Self - patient is the insured Medical (General) History Medical History History ICD Code Denies DE,DM,Lung disease,renal disease Screening colonoscopy 10/2011 ---1 tubular adenoma removed, mild diverticulosis, small internal hemorrhoids Hyperlipidemia Benign prostate biopsy 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
--- OUTSIDE RECORDS SUMMARY | 2025-03-17 08:50 | XMS_ITS | Patient Health Record ---
Author Organization [facility] Address [address] [place] [address] Care Team Providers Care Drapery Worker Name Role Phone Bennett Hager Primary Care Provider [phone] Ryan Peña Unavailable [phone] Raul Blackmon MD Unavailable Unavailable Allergies No Known Allergies Reason For Referral [...] Calcium 10 MG 1 tablet Orally Unknown Aspirin 81 MG 1 capsule Orally Onc e a day Active Meloxicam 15 MG 1 tablet Orally Once a day Active Famotidine 20 MG 1 tablet at bedtime as needed Orally Once a day Active Pravastatin Sodium 20 MG 1 tablet Orally Once a day Active Econazole Nitrate 1 % 1 application to a ffected area Externally Once a day; Duration: 30 days 12/10/2015 Unknown Social History Tobacco Use: Social History Observation Description Date Details (start date - stop date) Never Smoker NA - NA Tobacco use other than smoking: Question Answer [...] Problem Status W/U Status Risk Notes Problem Onychomycosis (160869705) Onychomycosis (B35.1) Active confirmed Problem Localized, primary osteoarthritis of the ankle and/or foot (434227066) 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) Active confirmed Vital Signs Blood pressure diastolic 80 mm Hg 03/14/2025 Height 5ft 8in in 03/14/2025 Blood pressure systolic 120 mm Hg 03/14/2025 Weight 190 lbs 03/14/2025 BMI 28.89 kg/m2 03/14/2025 Procedures Procedure Date Ordered Date Performed Result Body Sit e 10687-LXJGDFJ NAIL, 6 OR MORE 03/14/2025 N/A Encounters Encounter Location Date Provider Diagnosis [facility] [address] [address] 03/14/2025 Ryan Pñea Pain in right toe(s) M79.674 ; Onychomycosis [...] Date X ray : Ankle, left 3V 12/10/2015 X ray : Ankle, left 3V 03/14/2025 [id number] NAIL, 6 OR MORE 03/14/2016 10157-YWCEQMI NAIL, 6 OR MORE 06/22/2016 01146-[id number] NAIL, 6 OR MORE 09/19/2016 27700-[id number] NAIL, 6 OR MORE 03/14/2025 84355,[id number] TENDON SHEATH/LIGAMENT 0 12/10/2015 Next Appt Details Provider Name:Ryan Peña , 07/04/2025 12:30:00 PM, [address] [place] [address], [phone], Insurance Providers Payer Name Payer Address Payer Phone Subscriber Number Group Number Insured Name Patient Relationship to Insured Coverage Start Date Coverage End Date Medicare National Govt Svcs Inc [address] [place] [address] [id number] Yasamny Hardy Self - patient is the insured 7 [employer] Blue Shield [address] [place] [address] [id number] Yasmany Hardy Self - patient is the insured Medical (General) History Medical History History ICD Code Arthritis Cholesterol Measles foot pain Back,Hip,and Knee pain High Blood Pressure Stroke
--- OUTSIDE RECORDS SUMMARY | 2025-03-17 08:50 | XMS_ITS | Clinical Summary ---
Author Organization [facility] Address [facility] [place] [address] Care Team Providers Care Superintendent Quarry Name Role Phone Raul Blackmon MD Primary Care Provider [phone] Medications D3-red wine-resveratro l-malt 5,000-200 unit-mg Capsule [...] Next Due Covid-19 Monovalent (Moderna Spikevax) 12yrs+ ([id number]) 09/18/2020,08/21/2020 Tdap (Adacel, Boostrix) 03/07/2024,02/05/2017 Social History [...] Advance Directive 02/20/2007 Covid-19 Vaccine (3 - season) 02/17/202507/2020, 08/21/2020 Influenza (Flu) vaccine (1 o f 1 - Influenza standard series) 02/17/2025 Tetanus/Diphtheria/Pertussis Vaccines (3 - Td or Tdap) 03/07/2034 03/07/2024, 02/05/2017 Insurance MEDICARE [facility] Care Teams Superintendent Quarry Relationship Specialty Start Date End Date Raul Blackmon MD [address] [place], [place] [address] PCP - General General Internal Medicine 03/07/24
== END 2025-03-17 09:07 | disposition home or self-care (01) ==
LOC: HO.HMCSH 08:27
PROVIDERS: PCP Internal Medicine; Visit Provider Internal Medicine
DX: M16.0 Bilateral primary osteoarthritis of hip (principal); I10 Essential (primary) hypertension; E78.5 Hyperlipidemia, unspecified; Z23 Encounter for immunization

== ENCOUNTER → 2025-03-17 08:27 | Outpatient (BNVA) | payer MEDICARE, SELFPAY | PROVIDERS: PCP Internal Medicine; Visit Provider Internal Medicine | DX: M16.0 Bilateral primary osteoarthritis of hip (principal); I10 Essential (primary) hypertension; E78.5 Hyperlipidemia, unspecified; D17.79 Benign lipomatous neoplasm of other sites; Z28.21 Immunization not carried out because of patient refusal | CPT/HCPCS: 90471; 96127; 99212 ==

== ENCOUNTER 2025-04-02 07:18 | Outpatient (REF) | payer MEDICARE, SELFPAY ==
--- OUTSIDE RECORDS SUMMARY | 2025-04-02 07:22 | XMS_ITS | Clinical Summary ---
Author Organization [facility] Address [facility] [place] [address] Care Team Providers Care Cnc Service Technician Name Role Phone Raul Blackmon MD Primary Care Provider [phone] Medications D3-red wine-resveratro l-malt 5,000-200 unit-mg Capsule [...] Next Due Covid-19 Monovalent (Moderna Spikevax) 12yrs+ (3519-7266) 09/18/2020,08/21/2020 Tdap (Adacel, Boostrix) 03/07/2024,02/05/2017 Social History [...] or Tdap) 03/07/2034 03/07/2024, 02/05/2017 Insurance MEDICARE [facility] Care Teams Cnc Service Technician Relationship Specialty Start Date End Date Raul Blackmon MD [address] [place], [place] [address] PCP - General General Internal Medicine 03/07/24
[2025-04-02 10:34] LABS: Cholesterol 184 mg/dL (<200); HDL Cholesterol 56 mg/dL (>40); Triglycerides 101 mg/dL (<150)
== END 2025-04-02 07:19 | disposition home or self-care (01) ==
LOC: HO.HMGCLDS 07:18
PROVIDERS: PCP Internal Medicine; Visit Provider Internal Medicine
DX: E78.5 Hyperlipidemia, unspecified (principal)
CPT/HCPCS: 36415; 80061

== ENCOUNTER 2025-04-22 10:29 | Outpatient (AMB) | payer MEDICARE, SELFPAY ==
--- OUTSIDE RECORDS SUMMARY | 2024-03-11 02:30 | XMS_ITS ---
Author Organization [facility] Address [address] [place] [address] Care Team Providers Care Character Actress Name Role Phone Lorri (RETIRED) Raul ESTEVES Primary Care Provide r Jovanni Johnson Unavailable [phone] REASON FOR VISIT screening,hx polyps,gerd Problems Problem Type SNOMED Code ICD Code Onset Dates Problem Status W/U Status Risk Notes Problem Diverticular disease of colon (824193008) Diverticulosis of large intestine without perforation or abscess without bleeding (K57.30) Active confirmed Problem Gastroesophageal reflux disease (768160888) Gastroesophageal reflux disease (K21.9) Active confirmed Encounters Encounter Location Date Provider Diagnosis [facility] Outpatient [address] [place] [id number] 03/11/2024 Jovanni Hatch Colon cancer scree hayes [...] * ELLIS MARKS MDOB:1949 (75 yo M)Acc No.[id number]:03/11/2024 EGD and COL/MAC Patient: ELLIS ANAND Provider: Fidencio Hatch MD :1950 A ge:74 Y S ex:Male Date:03/11/2024 Address:[address] [place] [address] [facility] Pcp:Raul Blackmon (RETIRED )MD Subjective: * Chief [...] FLW-UP 10 YRS DOCD, Modifiers: 1P , 40465 UPPER GI ENDOSCOPY, BIOPSY * * The named appointment provid er may or may not be the originator of this progress note, and it is not deemed complete until electronically signed by the appointment provider. Sign off status: Pending * Provider: Fidencio Hatch MD Date: 0 03/11/2024 Generated for Becka chávez/Maile/Mistysmitting on: 06/22/2024 12:17 PM EST
--- OUTSIDE RECORDS SUMMARY | 2025-01-03 05:00 | XMS_ITS ---
Author Organization [facility] Address [address] [place] [address] Care Team Providers Care Solar Energy Sales Specialist Name Role Phone Bennett Hager Primary Care Provider Ryan Peña Unavailable [phone] Raul Blackmon MD Unavailable Unavailable REASON FOR VISIT BOOKY Mistake Encounters Encounter Location Date Provider Diagnosis [address] [address] 01/03/2025 Ryan Peña Plan Of Treatment Next Appt Details Provider Name:Ryan Peña , 07/04/2025 12:30:00 PM, [address] [place] [address], [phone], Progress Notes * Yasmany HARDY MDOB:1949 (75 yo M)Acc No.[id number]:01/03/2025 Progress Note Patient: Marta TOWNSENDYasmany MANZO Provider: Luzmaria Peña DPM :1950 A ge:74 Y S ex:Male Date:01/03/2025 Address:[address] [place] [address] Pcp:Bennett Hager Subjective: * Chief Complaints: * 1 . BOOKY Mistake. * Medical History: Objective: * Vitals: Assessment: Plan: * Treatment: * Images: * The named appointment provid er may or may not be the originator of this progress note, and it is not deemed complete until electronically signed by the appointment provider. Sign off status: Pending * Provider: Luzmaria Peña DPM Date: 0 01/03/2025 Generated for Becka Molina/Emmanuel on: 06/22/2024 12:17 PM EST
[2025-04-22 10:41] VITALS: BP 138/74; PULSE 72; O2SAT 98; BMI 29.3
--- NOTE | 2025-04-22 10:41 | MHC.OFFWIV ---
Intake Vital Signs 04/22/25 10:41 Height 5 ft 8 in Weight 193 lb BMI 29.3 BP 138/74 Blood Pressure Location Lt brachial Position Sitting Pulse 72 Pulse Source Pulse Oximeter Pulse Oximetry (%) 98 Oxygen Delivery Method Room Air Intake Visit Reasons: ep fell hurt right side of hip Intake Note: Patient presents with c/o right hip pain - ongoing problem but has fallen twice in the last week on to that leg. Patient Tobacco Use Status: Former Tobacco user Allergies No Known Allergies Allergy (Verified 04/22/25 10:45) Do you need a note to return to daycare/school/sports/work: No HPI HPI Comments History of Present Illness Details History of Present Illness - The patient is a 75-year-old male presenting with worsening right hip pain and instability following a fall. - The patient has a history of osteoarthritis in the hip, initially evaluated by Dr. Augustin in January, with a planned hip replacement surgery in the spring. - Recently, the patient experienced a fall while carrying a package, leading to increased pain in the right hip with radiation to the right upper leg. - He has been having episodes of the hip giving out and it caused a second fall. - The patient reports no numbness, tingling, or burning pain, but experiences throbbing pain at night. - The patient has been advised to obtain an x-ray to assess for potential fractures, which could expedite the planned surgery. - He states that he sees Dr. Augustin. - He denies back pain, knee pain, lower leg pain, ankle pain, or foot pain. Physical Exam General: Cooperative, healthy appearing, comfortable, no acute distress and well developed Orientation: Patient oriented x3 Respiratory: Normal respiratory effort and able to speak in complete sentences. Skin: No rashes or lesions noted Neuro: Patient oriented x3, CN 2-12 intact, gait normal Back/spine: No TTP cervical, thoracic or lumbar spine, no pain reported. No SI joint tenderness noted. Extremities: Decrease ROM of the right hip due to pain. TTP of the right pelvic brim, femoral head. TTP of the right upper leg. FROM of the right knee and ankle. Ambulates with a slow gait and a limp. Strength is 5/5 on the LE. Patient was informed and verbally consented to the use of an ambient scribe for clinic note documentation during this visit. [facility] Medical History (Updated 03/17/25 @ 09:06 by Bennett Hager MD) Hyperlipidemia CVA (cerebral vascular accident) GERD (gastroesophageal reflux disease) Tinnitus COVID-19 Ischemic stroke High blood pressure Surgical History Hx of prostate biopsy H/O colonoscopy (~03/11/24) Hx of hand surgery Family History Father Heart attack Mother Alzheimer dementia Hypertension Social History Household Members: Spouse Housing: House Are you a primary director of patient care to a significant other at home: No Do you presently have visiting nurse or other home services: No Alcohol intake: current Alcohol intake frequency: 0-2 drinks per day Alcohol type: beer Comment: counts correct Patient Tobacco Use Status: Former Tobacco user service: Yes Current occupational status: 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 Moderate osteoarthritis of the left hip. Assessment & Plan Assessment & Plan (1) Right hip pain: Code(s): M25.551 - Pain in right hip Plan Most likely arthritis vs fracture Plan - Obtain an x-ray of the pelvis and right hip to evaluate for possible fracture. - If a fracture is identified, consider sending him to the ER. - Continue with Tylenol and Mobic as needed for pain - Advised using a cane for ambulation. - will [facility] - Follow up with Dr. Augustin for further management based on x-ray findings. Orders: Orders XR hip RT w PEL1V Today M25.559 - Pain in unspecified hip Medications: New cane As directed 1 ea 0RF cane As directed 1 ea 0RF Coding Level of Care Code Est Pt Level 4 (62951) Diagnoses Right hip pain M25.551
--- OUTSIDE RECORDS SUMMARY | 2025-04-22 12:18 | XMS_ITS | Patient Health Record ---
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) Active confirmed Vital Signs Blood pressure diastolic 80 mm Hg 03/14/2025 Height 5ft 8in in 03/14/2025 Blood pressure systolic 120 mm Hg 03/14/2025 Weight 190 lbs 03/14/2025 BMI 28.89 kg/m2 03/14/2025 Procedures Procedure Date Ordered Date Performed Result Body Sit e 36195-DSSMNSD NAIL, 6 OR MORE 03/14/2025 N/A Encounters Encounter Location Date Provider Diagnosis [facility] [address] [address] 03/14/2025 Ryan Peña Pain in right toe(s) [...] X ray : Ankle, left 3V 03/14/2025 [id number] NAIL, 6 OR MORE 03/14/2016 [id number] NAIL, 6 OR MORE 06/22/2016 [id number] NAIL, 6 OR MORE 09/19/2016 [id number] NAIL, 6 OR MORE 03/14/2025 [id number] TENDON SHEATH/LIGAMENT 0 12/10/2015 Next Appt Details Provider Name:Ryan Peña , 07/04/2025 12:30:00 PM, [address] [place] [address], [phone], Insurance Providers Payer Name Payer Address Payer Phone Subscriber Number Group Number Insured Name Patient Relationship to Insured Coverage Start Date Coverage End Date Medicare National Govt Svcs Inc [address] [facility] [place] [address] [id number] Yasmany Hardy Self - patient is the insured 7 [employer] Blue Shield [address] [place] [address] [phone] [id number] Yasmany Hardy Self - patient is the insured Medical (General) History Medical History History ICD Code Arthritis Cholesterol Measles foot pain Back,Hip,and Knee pain High Blood Pressure Stroke
--- OUTSIDE RECORDS SUMMARY | 2025-04-22 12:18 | XMS_ITS | Clinical Summary ---
Author Organization [facility] Address [facility] [place] [address] Care Team Providers Care Security Software Engineer Name Role Phone Raul Blackmon MD Primary Care Provider [phone] Medications D3-red wine-resveratro l-malt 5,000-200 unit-mg Capsule [...] Next Due Covid-19 Monovalent (Moderna Spikevax) 12yrs+ ([id number]) 09/18/2020,08/21/2020 Tdap (Adacel, Boostrix) 03/07/2024,02/05/2017 Social History [...] or Tdap) 03/07/2034 03/07/2024, 02/05/2017 Insurance MEDICARE [facility] Care Teams Security Software Engineer Relationship Specialty Start Date End Date Raul Blackmon MD [address] [place], [place] [address] PCP - General General Internal Medicine 03/07/24
--- OUTSIDE RECORDS SUMMARY | 2025-04-22 12:18 | XMS_ITS | Patient Health Record ---
Author Organization [facility] Address [address] [place] [address] Care Team Providers Care Residential Real Estate Assistant Name Role Phone Lorri (RETIRED) Raul ESTEVES Primary Care Provide r Jovanni Johnson Unavailable [phone] Allergies No Known Allergies Reason For Referral No Information Medications Medication SIG (Take, Route, Frequency, Duration) Notes Start Date End Date Status Vitamin D 5000 1 capsule Orally Once a day twice a week Active Omeprazole 20 MG 1 capsule Orally Once a day every morning; Duration: 90 days Please remind patient to stop his Famotidine when he starts the omeprazole. Thanks 11/16/2023 Active Atorvastatin Calcium 10 MG 1 tablet Orally Once a day Active Pravastatin Sodium 20 MG Oral; Duration: 90 Active amLODIPine Besylate 2.5 MG Oral; Duration: 90 Active Famotidine 20 MG Oral; Duration: 90 Active Immunizations Vaccine Route Administration Date [...] Problem Status W/U Status Risk Notes Problem Screening for malignant neoplasm of colon (294069104) Encounter for screening for malignant neoplasm of colon (Z12.11) Active confirmed Problem History of adenomatous polyp of colon (903295636) History of adenomatous polyp of colon (Z86.010) Active confirmed Problem Diverticular disease of colon (052049558) Diverticulosis of large intestine without perforation or abscess without bleeding (K57.30) Active confirmed Problem Gastroesophageal reflux disease (922548078) Gastroesophageal reflux disease (K21.9) Active confirmed Problem Essential hypertension (60031153) Hypertension, unspecified type (I10) Active confirmed Problem Gastroesophageal reflux disease (disorder) (968665223) Chronic GERD (K21.9) Active confirmed Encounters Encounter Location Date Provider Diagnosis [facility] [address] [place] [address] 11/05/2024 Jovanni Hatch Chronic GERD K21.9 Assessments [...] Date MEDICARE OF [place] [address] [facility] [address] [id number] ELLIS MARKS Self - patient is the insured [employer] [address] [place] [address] [phone] [id number] ELLIS MARKS Self - patient is the insured Medical (General) History Medical History History ICD Code Denies IN,DM,Lung disease,renal disease Screening colonoscopy 10/2011 ---1 tubular adenoma removed, mild diverticulosis, small internal hemorrhoids Hyperlipidemia Benign prostate biopsy 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
== END 2025-04-22 12:17 | disposition home or self-care (01) ==
PROVIDERS: PCP Internal Medicine; Visit Provider Physician Assistant Medical
DX: M25.551 Pain in right hip (principal)

== ENCOUNTER 2025-04-22 10:29 | Outpatient (REF) | payer MEDICARE, SELFPAY ==
--- NOTE | ~2025-04-22 | XR_ITS ---
EXAMINATION: XR HIP 1 VIEW RIGHT WITH PELVIS HISTORY: M25.559 - Pain in unspecified hip COMPARISON: Comparison is made with the prior examination dated 03/15/2023. FINDINGS: A single AP view of the pelvis and two views of the right hip are submitted. Osseous mineralization is normal. There is no fracture or dislocation. There is severe osteoarthritis of the right hip joint space narrowing, osteophyte formation, and subchondral cyst formation. Findings have progressed since the prior study. There is moderate osteoarthritis of the left hip. There are vascular calcifications. XR/XR hip RT w PEL1V IMPRESSION: Severe osteoarthritis of the right hip with progression since the prior study. Moderate osteoarthritis of the left hip. Electronically signed by: Jovanni Barrios MD 04/22/2025 11:43 AM BABAR ROJAS
== END 2025-04-22 10:30 | disposition home or self-care (01) ==
LOC: HO.HMGCX 10:29
PROVIDERS: Absent Provider Orthopaedic Surgery; PCP Internal Medicine; Visit Provider Physician Assistant Medical
DX: M25.551 Pain in right hip (principal)
CPT/HCPCS: 73502; 99212

== ENCOUNTER → 2025-04-22 11:27 | Outpatient (BNV) | payer MEDICARE, SELFPAY | PROVIDERS: Absent Provider Orthopaedic Surgery; PCP Internal Medicine; Visit Provider Radiology Diagnostic Radiology | DX: M17.0 Bilateral primary osteoarthritis of knee (principal) | CPT/HCPCS: 73502 ==

== ENCOUNTER 2025-04-24 11:21 | Outpatient (AMB) | payer MEDICARE, SELFPAY ==
--- OUTSIDE RECORDS SUMMARY | 2024-03-11 02:30 | XMS_ITS ---
Author Organization [facility] Address [address] [place] [address] Care Team Providers Care Applied Anthropologist Name Role Phone Lorri (RETIRED) Raul ESTEVES Primary Care Provide r Jovanni Johnson Unavailable [phone] REASON FOR VISIT screening,hx polyps,gerd Problems Problem Type SNOMED Code ICD Code Onset Dates Problem Status W/U Status Risk Notes Problem Diverticular disease of colon (390891003) Diverticulosis of large intestine without perforation or abscess without bleeding (K57.30) Active confirmed Problem Gastroesophageal reflux disease (333225100) Gastroesophageal reflux disease (K21.9) Active confirmed Encounters Encounter Location Date Provider Diagnosis [facility] [place] [address] [place] [id number] 03/11/2024 Jovanni Hatch Colon cancer scree hayes Z12.11 ; Colon polyps K63.5 ; Rectal polyp K62.1 ; Diverticulosis of large intestine without perforation or abscess without bleeding K57.30 ; Other hemorrhoids K64.8 ; Gastroesophageal reflux disease K21.9 and Hiatal hernia K44.9 Assessments Encounter Date Diagnosis (ICD Code) Assessment Notes Treatment Notes Treatment Clinical Notes Section Notes 03/11/2024 Colon cancer screening (ICD-10 - Z12.11) 03/11/2024 Colon polyps (ICD-10 - K63.5) 03/11/2024 Rectal polyp (ICD-10 - K62.1) 03/11/2024 Diverticulosis of large intestine without perforation or abscess without bleeding (ICD-10 - K57.30) 03/11/2024 Other hemorrhoids (ICD-10 - K64.8) 03/11/2024 Gastroesophageal reflux disease (ICD-10 - K21.9) 03/11/2024 Hiatal hernia (ICD-10 - K44.9) Plan Of Treatment No Information Progress Notes * ELLIS MARKS MDOB:1949 (75 yo M)Acc No.[id number]:03/11/2024 EGD and COL/MAC Patient: ELLIS ANAND Provider: Fidencio Hatch MD :1950 A ge:74 Y S ex:Male Date:03/11/2024 Address:[address] [place] [address] [facility] Pcp:Raul Blackmon (RETIRED )MD Subjective: * Chief Complaints: * 1 . Screening,hx polyps,gerd. * Medical History: Objective: * Vitals: Assessment: * Assessment: 1. C olon cancer screening - Z12.11 (Primary) 2 . C olon polyps - K63.5? 3. R ectal polyp - K62.1 4 . D iverticulosis of large intestine without perforation or abscess without bleeding - K57.30 5 . O ther hemorrhoids - K64.8 6 . G astroesophageal reflux disease - K21.9 7 . H iatal hernia - K44.9 Plan: * Treatment: * Procedure Codes: 4 5380 COLONOSCOPY AND BIOPSY, Modifiers: PT , 0529F INTRVL 3+YRS PTS CLNSCP DOCD, 0528F RCMND FLW-UP 10 YRS DOCD, Modifiers: 1P , 71397 UPPER GI ENDOSCOPY, BIOPSY * * The named appointment provid er may or may not be the originator of this progress note, and it is not deemed complete until electronically signed by the appointment provider. Sign off status: Pending * Provider: Fidencio Hatch MD Date: 0 03/11/2024 Generated for Becka chávez/Maile/Chalinoitting on: 06/24/2024 02:10 PM EST
--- NOTE | 2025-04-24 11:30 | A.OFFVIS_ITS ---
Intake Visit Reasons: discuss surgery RT hip OA Intake Note: Yasmany is a 74 year old male who presents today for a follow up of his Right Hip. He has Bilateral Hip OA but at his last visit we discussed that his primary disruption of ambulation is his Left Ankle Pain, today he reports increasing pain and would like to discuss Right MARÍA. Allergies No Known Allergies Allergy (Verified 04/22/25 10:45) HPI HPI discuss surgery RT hip OA: Details: Yasmany is a 74 year old male who presents today for a follow up of his Right Hip. And a 3 to months ago by me. We discussed his right hip at that time. He has extremely poor gait mechanics and limited motion but his pain was tolerable and he was not interested in surgery. He has since deteriorated significantly. He describes difficulty with daily activities. He has pain at all times and feels like has fallen twice because of his hip pain in his hip giving out. Pain localizes to his anterior right hip and groin region. [facility] Medical History (Updated 03/17/25 @ 09:06 by Bennett Hager MD) Hyperlipidemia CVA (cerebral vascular accident) GERD (gastroesophageal reflux disease) Tinnitus COVID-19 Ischemic stroke High blood pressure Surgical History Hx of prostate biopsy H/O colonoscopy (~03/11/24) Hx of hand surgery Family History Father Heart attack Mother Alzheimer dementia Hypertension Social History Household Members: Spouse Housing: House Are you a primary rn primary care to a significant other at home: No Do you presently have visiting nurse or other home services: No Alcohol intake: current Alcohol intake frequency: 0-2 drinks per day Alcohol type: beer Comment: counts correct Patient Tobacco Use Status: Former Tobacco user service: Yes Current occupational status: 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 He is alert oriented x3. Extrem Other: Poor gait mechanics with short swing phase of gait and swaying Trendelenburg type gait. He has positive impingement test on the right. He has firing his EHL tib ant and gastrocs in his 2+ dorsalis pedis pulse. Results Reviewed Results Reviewed: I personally reviewed relevant radiographs. Moderate left hip arthritis and severe right hip osteoarthritis. Assessment & Plan Assessment & Plan (1) Arthritis of right hip: Code(s): M16.11 - Unilateral primary osteoarthritis, right hip Category: Medical Plan: Yasmany is a 75-year-old gentleman who has severe right hip osteoarthritis. The quality of his life is adversely affected. His gait mechanics are poor. I have seen him in the past and he had been hesitant to undergo hip replacement but comes in today feeling like he cannot tolerate the pain and the disruption to his quality of life. He has hypertension and a history a cerebrovascular event 2 years ago which she has recovered from fully. He recently saw his primary care physician and he was encouraged to revisit discussion regarding hip surgery. He is very functional and with no severe health conditions. His hip is limiting his ability to engage in daily activities and I recommend right hip arthroplasty. I discussed the procedure with him. I have discussed the risks, benefits and alternatives to surgery including, but not limited to, the risk of infection, dislocation, fracture as well as medical complications associated with surgery such as blood clots, pneumonia, pulmonary embolism, organ failure. I answered his questions to the best of my abilities and we will proceed forward accordingly. Coding Level of Care Code Est Pt Level 4 (87969) Diagnoses Arthritis of right hip M16.11
--- OUTSIDE RECORDS SUMMARY | 2025-04-24 14:10 | XMS_ITS | Clinical Summary ---
Author Organization [facility] Address [facility] [place] [address] Care Team Providers Care Stratigrapher Name Role Phone Raul Blackmon MD Primary Care Provider [phone] Medications D3-red wine-resveratro l-malt 5,000-200 unit-mg Capsule [...] Next Due Covid-19 Monovalent (Moderna Spikevax) 12yrs+ ([id number]) 09/18/2020,08/21/2020 Tdap (Adacel, Boostrix) 03/07/2024,02/05/2017 Social History [...] or Tdap) 03/07/2034 03/07/2024, 02/05/2017 Insurance MEDICARE [facility] Care Teams Stratigrapher Relationship Specialty Start Date End Date Raul Blackmon MD [address] [place], [place] [address] PCP - General General Internal Medicine 03/07/24
== END 2025-04-24 11:56 | disposition home or self-care (01) ==
LOC: HO.HOS 11:21
PROVIDERS: PCP Internal Medicine; Visit Provider Orthopaedic Surgery
DX: M16.11 Unilateral primary osteoarthritis, right hip (principal)
CPT/HCPCS: 99214

== ENCOUNTER → 2025-04-24 11:21 | Outpatient (BNVA) | payer MEDICARE, SELFPAY | PROVIDERS: PCP Internal Medicine; Visit Provider Orthopaedic Surgery | DX: M16.11 Unilateral primary osteoarthritis, right hip (principal); Z71.89 Other specified counseling | CPT/HCPCS: 99212 ==

== ENCOUNTER 2025-06-17 09:31 | Outpatient (AMB) | payer MEDICARE, SELFPAY ==
--- OUTSIDE RECORDS SUMMARY | 2024-03-11 02:30 | XMS_ITS ---
Author Organization [facility] Address [address] [place] [address] Care Team Providers Care Mix Technician Name Role Phone Lorri (RETIRED) Raul ESTEVES Primary Care Provide r Jovanni Johnson Unavailable [phone] REASON FOR VISIT screening,hx polyps,gerd Problems Problem Type SNOMED Code ICD Code Onset Dates Problem Status W/U Status Risk Notes Problem Diverticular disease of colon (812236776) Diverticulosis of large intestine without perforation or abscess without bleeding (K57.30) Active confirmed Problem Gastroesophageal reflux disease (932082201) Gastroesophageal reflux disease (K21.9) Active confirmed Encounters Encounter Location Date Provider Diagnosis [facility] [place] Out[facility] [address] [place] [id number] 03/11/2024 Jovanni Hatch Colon cancer scree hayes [...] * ELLIS MARKS MDOB:1949 (75 yo M)Acc No.[id number]:03/11/2024 EGD and COL/MAC Patient: ELLIS ANAND Provider: Fidencio Hatch MD :1950 A ge:74 Y S ex:Male Date:03/11/2024 Address:[address] [place] [address] [facility] Pcp:Raul Blackmon (RETIRED )MD Subjective: * Chief Complaints: * S creening,hx polyps,gerd Assessment: * Assessment: 1. C olon cancer screening - Z12.11 (Primary) 2 . C olon polyps - K63.5? 3. R ectal polyp - K62.1 4 . D iverticulosis of large intestine without perforation or abscess without bleeding - K57.30 5 . O ther hemorrhoids - K64.8 6 . G astroesophageal reflux disease - K21.9 7 . H iatal hernia - K44.9 Plan: * Procedure Codes: 4 5380 COLONOSCOPY AND BIOPSY, Modifiers: PT 0529F INTRVL 3+YRS PTS CLNSCP [id number] RCMND FLW-UP 10 YRS DOCD, Modifiers: 1P 27441 UPPER GI ENDOSCOPY, BIOPSY Billing Information: * Procedure Codes: 43833 COLONOSCOPY AND BIOPSY. Modifiers: PT 0529F INTRVL 3+YRS PTS CLNSCP DOCD. 0528F RCMND FLW-UP 10 YRS DOCD. Modifiers: 1P 07786 UPPER GI ENDOSCOPY, BIOPSY. * The named appointment provid er may or may not be the originator of this progress note, and it is not deemed complete until electronically signed by the appointment provider. Sign off status: Pending * Provider: Fidencio Hatch MD Date: 0 03/11/2024 Generated for Becka chávez/Maile/eTransmitting on: 1 12:15 PM EST
--- OUTSIDE RECORDS SUMMARY | 2025-01-03 05:00 | XMS_ITS ---
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 FORENSICS TEAM DIRECTOR Mistake. * Medical History: Objective: * Vitals: Assessment: Plan: * Treatment: * Images: * The named appointment provid er may or may not be the originator of this progress note, and it is not deemed complete until electronically signed by the appointment provider. Sign off status: Pending * Provider: Luzmaria Peña DPM Date: 0 01/03/2025 Generated for Becka Molina/Emmanuel on: 1 12:15 PM EST
[2025-06-17 09:34] VITALS: BP 149/67; PULSE 92; RESP 14; TEMP 36.4; O2SAT 95; BMI 29.5
--- NOTE | 2025-06-17 09:34 | A.OFFPC_ITS ---
Vital Signs 06/17/25 09:34 06/17/25 09:40 Height 5 ft 8 in Weight 194 lb BMI 29.5 BP 149/67 H 142/65 H Blood Pressure Location Rt brachial Lt brachial Position Sitting Sitting Respiration 14 Pulse 92 Pulse Source Pulse Oximeter Temp 97.6 F Temp Source Temporal Artery Scan Pulse Oximetry (%) 95 Oxygen Delivery Method Room Air Intake Visit Reasons: Pre op Rt Hip surgery Dr. Augustin Card Decorator Required: No Accompanied by: Self / Same As Patient Allergies No Known Allergies Allergy (Verified 06/17/25 10:16) Medication List - Last Reconciled 06/17/25 by Bennett Hager MD amlodipine 2.5 mg PO DAILY amlodipine 5 mg PO DAILY aspirin 81 mg PO DAILY 30 days cane As directed cholecalciferol (vitamin D3) 25 mcg PO 2XW famotidine 20 mg PO BID meloxicam 15 mg PO DAILY pravastatin 20 mg PO DAILY Tobacco use date assessed: 03/17/25 Dental Screening Dental Screen Date: 03/17/25 HPI HPI Comments History of Present Illness Details History of Present Illness - The patient is a 75 year old male pres enting for preoperative clearance for a planned right total hip arthroplasty scheduled for August 12. - He reports severe, rlfp-yb-dtdx arthri tis in his right hip, which causes pain at night. - His decision to proceed with surgery w as prompted by two recent falls, which occurred when his hip gave out. - His past surgical history includes a f stacia procedure and a colonoscopy, both without complications related to anesthesia. - His medications include treatments for hypertension, pravastatin for hyperlipidemia, vitamin D, aspirin, and meloxicam. - He reports no known allergies. - He states his blood pressure is well-c ontrolled. Social History - The patient lives at home with his wif e and son, who will be available to assist him with post-operative care. - His home is a single-story layout, [facility] will allow him to avoid climbing stairs during his recovery. - The patient understands he will be lalit ble to drive for approximately one month following surgery. Results No diagnostic results were reviewed during the visit. [facility] Medical History Hyperlipidemia CVA (cerebral vascular accident) GERD (gastroesophageal reflux disease) Tinnitus COVID-19 Ischemic stroke High blood pressure Surgical History Hx of prostate biopsy H/O colonoscopy (~03/11/24) Hx of hand surgery Family History Father Heart attack Mother Alzheimer dementia Hypertension Social History Household Members: Spouse Housing: House Are you a primary adult care manager to a significant other at home: No Do you presently have visiting nurse or other home services: No Alcohol intake: current Alcohol intake frequency: 0-2 drinks per day Alcohol type: beer Comment: counts correct Patient Tobacco Use Status: Former Tobacco user service: Yes Current occupational status: retired Cognitive needs: No Hearing needs: Yes Vision needs: Yes (reading glasses) Questionnaire PHQ-9 Over the last 2 weeks, how often have you been bothered by any of the following problems? 1. Little interest or pleasure in doing things: not at all 2. Feeling down, depressed, or hopeless: not at all 3. Trouble falling or staying asleep, or sleeping too much: not at all 4. Feeling tired or having little energy: not at all 5. Poor appetite or overeating: not at all 6. Feeling bad about yourself - or that you are a failure or have let yourself or your family down: not at all 7. Trouble concentrating on things, such as reading the newspaper or watching television: not at all 8. Moving or speaking so slowly that other people could have noticed. Or the opposite - being so fidgety or restless that you have been moving around a lot more than usual: not at all 9. Thoughts that you would be better off or of hurting yourself in some way: not at all Total score: 0 Source: Developed by Drs. Jovanni Rodriguez, Maria C Salguero, Marquise Mahmood and colleagues, with an educational shimon from [employer]. Thrive Questionnaire Date Thrive assessed: 03/17/25 I am a: Patient What is your living situation today?: I have a steady place to live Within the past 12 months, did the food you bought not last and you didn't have the money to get more?: Never true Within the past 12 months, did you worry whether your food would run out before you got money to buy more?: Never true Do you have trouble paying for medicines?: No Do you have trouble getting transportation to medical appointments?: No Do you have trouble paying your heating and electricity bill?: No Do you have trouble taking care of your child, family member or friend?: No Do you have trouble with day-to-day activities such as bathing, preparing meals, shopping, managing finances, etc.?: No Are you currently unemployed and looking for a job?: No Are you interested in more education?: No THRIVE Score: 0 AUDIT C Alcohol Use Questionnaire (AUDIT-C) 1. How often do you have a drink containing alcohol?: Never 3. How often do you have six or more drinks on one occasion?: Never Total Score: 0 LINDSEY-7 AMB Questionnaire LINDSEY-7 Date LINDSEY - 7 assessed: 03/17/25 Feeling nervous, anxious, or on edge: 0 = Not at all Not being able to stop or control worryin = Not at all Worrying too much about different things: 0 = Not at all Trouble relaxin = Not at all Being so restless that it is hard to sit still: 0 = Not at all Becoming easily annoyed or irritable: 0 = Not at all Feeling afraid as if something awful might happen: 0 = Not at all Total LINDSEY-7 score (0-4 normal; 5-9 mild; 10-14 moderate; 15-21 severe): 0 Source: Developed by Drs. Jovanni Rodriguez, Maria C Salguero, Marquise Mahmood and colleagues, with an educational shimon from [employer]. Review of Systems Narrative Review of Systems - Allergic/Immunologic: Denies any known drug allergies. - Musculoskeletal: Reports severe right hip pain, which is worse at night. - Neurological: Reports two recent falls attributed to his hip giving out. Physical exam (Primary Care) Vital Signs: Last Vital Signs Temp 97.6 F 06/17/25 09:34 Pulse 92 06/17/25 09:34 Resp 14 06/17/25 09:34 BP 142/65 H 06/17/25 09:40 Pulse Ox 95 06/17/25 09:34 Oxygen Delivery Method Room Air 06/17/25 09:34 BMI result Body Mass Index 29.5 Tobacco/Smoking Status: Tobacco use Status Tobacco use date assessed 03/17/25 06/17/25 09:35 Patient Tobacco Use Status Former Tobacco user 06/17/25 09:35 PHQ-9: PHQ-9 Score PHQ-9: Total score 0 06/17/25 09:35 Thrive Assessment: Date of Thrive Assessment Date Thrive assessed 03/17/25 06/17/25 09:35 Narrative Physical Exam General: Appearance normal, both eyes and all related structures Nutritional Appearance: Well nourished, advised to avoid weight gain Orientation/consciousness: Patient oriented x3 Limitations: Limping observed, advised no driving or climbing stairs for at least a month post-surgery Head: Normal to inspection Neck: Normal visual inspection Chest: Normal palpation of entire chest wall Respiratory: Normal respiratory effort Neurology: Patient oriented x3 Coding Level of Care Code Est Pt Level 4 (04412) Add On Problem Visit Only Diagnoses Osteoarthritis of hips, bilateral M16.0 High blood pressure I10 Assessment & Plan Assessment & Plan (1) Osteoarthritis of hips, bilateral: Code(s): M16.0 - Bilateral primary osteoarthritis of hip Category: Medical (2) High blood pressure: Code(s): I10 - Essential (primary) hypertension Category: Medical Plan Plan - The patient is cleared for his upcoming right total hip arthroplasty. - Ordered preoperative labs and an EKG to be completed at the hospital. - Instructed the patient to hold aspirin seven days prior to surgery and to restart it immediately after. - Advised holding meloxicam two days before the surgery. - Counseled on the importance of avoiding weight gain before the procedure. - Patient advised to follow up in the clinic in three months. - Emphasized the importance of adhering to the postoperative physical therapy regimen. Discussion Notes I confirmed with the patient that he is proceeding with a right hip replacement on August 12. I provided medical clearance for the surgery pending the results of preoperative blood work and an EKG, which I have ordered. We discussed medication management for the preoperative period, including stopping aspirin seven days prior and meloxicam two days prior to the procedure. I reviewed his postoperative recovery plan, confirming he has adequate support at home with his and son and that his home environment is suitable for recovery. I also emphasized the importance of following the postoperative physical therapy plan and advised him to avoid any weight gain before surgery. I reassured him that his surgeon is highly regarded and that he can expect a significant improvement in his quality of life. The patient verbalized understanding of the plan and his questions were answered. Patient Instructions - Please go to the hospital to get your blood work and EKG done before your surgery. - You must not eat before your blood test, but you can drink water and black coffee. - Stop taking aspirin 7 days before your surgery (stop on August 05). - Stop taking meloxicam 2 days before your surgery. - You can start taking aspirin again right after your surgery. - Try to avoid gaining any weight before your operation. - It is very important to do the exercises your physical therapist gives you after surgery. - Please schedule a follow-up appointment in this office for three months from now. Orders: Orders Lipid Panel Today M16.0 - Bilateral primary osteoarthritis of hip Thyroid Stimulating Hormone Today M16.0 - Bilateral primary osteoarthritis of hip UA and rflx microscopic Today M16.0 - Bilateral primary osteoarthritis of hip ECG 12 lead EKG Today I10 - Essential (primary) hypertension, M16.0 - Bilateral primary osteoarthritis of hip Basic Metabolic Panel Today M16.0 - Bilateral primary osteoarthritis of hip Complete Blood Count no Diff Today M16.0 - Bilateral primary osteoarthritis of hip Liver Panel Today M16.0 - Bilateral primary osteoarthritis of hip
[2025-06-17 09:40] VITALS: BP 142/65
--- OUTSIDE RECORDS SUMMARY | 2025-06-17 12:16 | XMS_ITS | Clinical Summary ---
Author Organization [facility] Address [facility] [place] [address] Care Team Providers Care Senior Patient Account Representative Name Role Phone Raul Blackmon MD Primary Care Provider [phone] Medications D3-red wine-resveratro l-malt 5,000-200 unit-mg Capsule [...] Next Due Covid-19 Monovalent (Moderna Spikevax) 12yrs+ ([id number]) 09/18/2020,08/21/2020 Tdap (Adacel, Boostrix) 03/07/2024,02/05/2017 Social History [...] or Tdap) 03/07/2034 03/07/2024, 02/05/2017 Insurance MEDICARE [facility] Care Teams Senior Patient Account Representative Relationship Specialty Start Date End Date Raul Blackmon MD [address] [place], [place] [address] PCP - General General Internal Medicine 03/07/24
--- OUTSIDE RECORDS SUMMARY | 2025-06-17 12:16 | XMS_ITS | Patient Health Record ---
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) Active confirmed Vital Signs Blood pressure diastolic 80 mm Hg 03/14/2025 Height 5ft 8in in 03/14/2025 Blood pressure systolic 120 mm Hg 03/14/2025 Weight 190 lbs 03/14/2025 BMI 28.89 kg/m2 03/14/2025 Procedures Procedure Date Ordered Date Performed Result Body Sit e 90017-[id number] NAIL, 6 OR MORE 03/14/2025 N/A Encounters Encounter Location Date Provider Diagnosis [facility] [address] [address] 03/14/2025 Ryan Peña Pain in right toe(s) [...] X ray : Ankle, left 3V 03/14/2025 [id number] NAIL, 6 OR MORE 03/14/2016 [id number] NAIL, 6 OR MORE 06/22/2016 [id number] NAIL, 6 OR MORE 09/19/2016 [id number] NAIL, 6 OR MORE 03/14/2025 [id number] TENDON SHEATH/LIGAMENT 0 12/10/2015 Next Appt Details Provider Name:Ryan Peña , 07/04/2025 12:30:00 PM, [address] [place] [address], [phone], Insurance Providers Payer Name Payer Address Payer Phone Subscriber Number Group Number Insured Name Patient Relationship to Insured Coverage Start Date Coverage End Date Medicare National Govt [employer] [address] [facility] [place] [address] [id number] Yasmany Hardy Self - patient is the insured 7 [employer] Blue Shield [address] [place] [address] [id number] Yasmany Hardy Self - patient is the insured Medical (General) History Medical History History ICD Code Arthritis Cholesterol Measles foot pain Back,Hip,and Knee pain High Blood Pressure Stroke
--- OUTSIDE RECORDS SUMMARY | 2025-06-17 12:16 | XMS_ITS | Patient Health Record ---
Author Organization [facility] Address [address] [place] [id number] Care Team Providers Care Cd Reactor Operator Name Role Phone Lorri (RETIRED) Raul ESTEVES Primary Care Provide r Jovanni Johnson Unavailable [phone] Allergies No Known Allergies Reason For Referral No Information Medications Medication SIG (Take, Route, Frequency, Duration) Notes Start Date End Date Status Vitamin D 5000 cap 1 capsule Orally Once a day twice a week Active Omeprazole 20 MG Capsule Delayed Release 1 capsule Orally Once a day every morning; Duration: 90 days Please remind patient to stop his Famotidine when he starts the omeprazole. Thanks 11/16/2023 Active Atorvastatin Calcium 10 MG Tablet 1 tablet Orally Once a day Active Pravastatin Sodium 20 MG Tablet Oral; Duration: 90 Active amLODIPine Besylate 2.5 MG Tablet Oral; Duration: 90 Active Famotidine 20 MG Tablet Oral; Duration: 90 Active Immunizations Vaccine Route Administration Date Status Comme nts Influenza Unknown 04/25/2018 Refused Influenza Unknown 11/16/2023 Refused Social History Social History Drugs/Alcohol: Social Info Question Answer Notes Alcohol Screen Did you have a drink containing alcohol in the past year? 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 beer Nonsmoker; approx 4 beers QD Nonsmoker; approx 4 beers QD Problems Problem Type SNOMED Code ICD Code Onset Dates Problem Status W/U Status Risk Notes Problem Screening for malignant neoplasm of colon (057270251) Encounter for screening for malignant neoplasm of colon (Z12.11) Active confirmed Problem History of adenomatous polyp of colon (149904893) History of adenomatous polyp of colon (Z86.010) Active confirmed Problem Diverticular disease of colon (987472970) Diverticulosis of large intestine without perforation or abscess without bleeding (K57.30) Active confirmed Problem Gastroesophageal reflux disease (495498646) Gastroesophageal reflux disease (K21.9) Active confirmed Problem Essential hypertension (63105454) Hypertension, unspecified type (I10) Active confirmed Problem Gastroesophageal reflux disease (disorder) (924994005) Chronic GERD (K21.9) Active confirmed Encounters Encounter Location Date Provider Diagnosis [facility] [address] [place] [address] 11/05/2024 Jovanni Hatch Chronic GERD K21.9 Assessments [...] Date MEDICARE OF [place] [address] [place] [address] [id number] ELLIS MARKS Self - patient is the insured [employer] CLAIMS [address] [place] [address] [id number] ELLIS MARKS Self - patient is the insured Medical (General) History Medical History History ICD Code Denies ME,DM,Lung disease,renal disease Screening colonoscopy 10/2011 ---1 tubular adenoma removed, mild diverticulosis, small internal hemorrhoids Hyperlipidemia Benign prostate biopsy 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
== END 2025-06-17 09:57 | disposition home or self-care (01) ==
LOC: HO.HMCSH 09:31
PROVIDERS: PCP Internal Medicine; Visit Provider Internal Medicine
DX: M16.0 Bilateral primary osteoarthritis of hip (principal); I10 Essential (primary) hypertension

== ENCOUNTER → 2025-06-17 09:31 | Outpatient (BNVA) | payer MEDICARE, SELFPAY | PROVIDERS: PCP Internal Medicine; Visit Provider Internal Medicine | DX: Z01.818 Encounter for other preprocedural examination (principal); M16.0 Bilateral primary osteoarthritis of hip; I10 Essential (primary) hypertension; Z79.82 Long term (current) use of aspirin; Z87.891 Personal history of nicotine dependence | CPT/HCPCS: 99212 ==